=== PATIENT | male | born 1950 | race Caucasian/White ===

== ENCOUNTER 2016-12-04 12:47 | Emergency (ER) | payer OTHER ==
[2016-12-04 12:52] VITALS: TEMP 36.3
[2016-12-04] MEDS ORDERED: SODIUM CHLORIDE 0.9% 1000ML 1,000 ML IV STA ×2 (13:00→15:10)
[2016-12-04] MEDS ORDERED: HALOPERIDOL LACTATE 5 MG/ML 1 ML VIAL IM STA (13:28)
[2016-12-04] MEDS ORDERED: NMN10 PO (13:43)
[2016-12-04] MEDS ORDERED: TAMS0.4C38 PO (13:43)
[2016-12-04] MEDS ORDERED: AMLO-114 PO (13:43)
[2016-12-04] MEDS ORDERED: ACET325T30 PO (13:43)
[2016-12-04] MEDS ORDERED: ZNTT/150 PO (13:43)
[2016-12-04] MEDS ORDERED: B-CO1CAP3 PO (13:43)
[2016-12-04] MEDS ORDERED: ASPI81TA28 PO (13:43)
[2016-12-04] MEDS ORDERED: SERT-234 PO (13:43)
[2016-12-04] MEDS ORDERED: DONE10TA12 PO (13:43)
[2016-12-04] MEDS ORDERED: NUTR-7 PO (13:43)
--- NOTE | 2016-12-04 13:50 | EMERGENCY ROOM VISIT NOTE ---
History Report prepared by Olayinka: Katya Regan Under the Supervision of: Rosalind SantiagoO. First contact with patient: 12:50 Chief Complaint: ILLNESS History of Present Illness The patient is a 66 year old male who presents to the Emergency Room with complaints of a persistent illness that began prior to arrival. Per records, the patient has been refusing to eat and drink and was sent to the emergency department for work up. Records indicate that the patient has had a change in mental status. The guards do not report any known trauma. Records note a history of PTSD, unspecified depression, hepatitis C, GERD, hypertension, and a history of substance abuse. The history is limited secondary to altered mental status. Source of History: patient, other (records, long term guards) History Limited By: AMS Onset: prior to arrival Position: other (global) Quality: other (illness) Timing: other (persistent) Note: Associated Symptoms: refusing to eat or drink, change in mental status Review of Systems See HPI for pertinent positives & negatives. A total of 10 systems reviewed and were otherwise negative. Past Medical & Surgical Medical Problems: (1) GERD (gastroesophageal reflux disease) (2) Hepatitis C (3) Hypertension (4) PTSD (post-traumatic stress disorder) (5) Substance abuse Family History No pertinent family history stated Social History Occupation Status: other (prisoner) Current/Historical Medications Scheduled Amlodipine (Norvasc), 10 MG PO DAILY Aspirin (Aspirin Ec), 81 MG PO DAILY Donepezil Hydrochloride (Aricept), 1 TAB PO HS Memantine (Namenda), 10 MG PO BID Ranitidine (Zantac), 1 TAB PO BID Sertraline (Zoloft), 1 TAB PO DAILY Tamsulosin Hcl (Flomax), 1 CAP PO DAILY Miscellaneous Medications Acetaminophen (Acetaminophen) B-Complex Vitamins (B Complex) Nutritional Supplements (Boost) Physical Exam Vital Signs Date Time Temp Pulse Resp B/P Pulse Ox O2 Delivery O2 Flow Rate FiO2 12/04/16 16:59 85 16 132/76 100 12/04/16 16:10 100 20 147/112 100 Room Air 12/04/16 15:22 83 20 141/92 95 Room Air 12/04/16 14:04 83 18 125/77 96 Room Air 12/04/16 13:58 85 12/04/16 12:55 85 18 133/83 100 Room Air 12/04/16 12:52 36.3 20 139/93 Room Air Physical Exam GENERAL: Patient is awake, alert, somewhat anxious appearing and guarded. Talking nonsensically. Appears to be responding to internal stimuli. EYES: The conjunctivae are clear. The pupils are round and reactive. EARS, NOSE, MOUTH AND THROAT: The nose is without any evidence of any deformity. Mucous membranes are dry tongue is midline NECK: The neck is nontender and supple. RESPIRATORY: Normal respiratory effort is noted there is no evidence of wheezing rhonchi or rales CARDIOVASCULAR: Regular rate and rhythm noted there no murmurs rubs or gallops normal S1 normal S2 GASTROINTESTINAL: The abdomen is soft. Bowel sounds are present in all quadrants. Abdomen is nontender MUSCULOSKELETAL/EXTREMITIES: There is no evidence of gross deformity full range of motion is noted in the hips and shoulders SKIN: There is no obvious evidence of any rash. There are no petechiae, pallor or cyanosis noted. NEUROLOGIC: Patient will not answer questions. Cannot assess orientation at this time. Patellar reflexes are 2+ bilaterally. No clonus. Medical Decision & Procedures ER Provider Diagnostic Interpretation: X ray results and stated below per my interpretation and radiology interpretation. Other radiology results per my review and radiologist interpretation: CT SCAN OF THE BRAIN WITHOUT IV CONTRAST CLINICAL HISTORY: Change in mental status. COMPARISON STUDY: No priors. TECHNIQUE: Unenhanced axial CT scan of the brain is performed from the vertex to the skull base. The examination is modestly degraded by motion artifact. CT DOSE: 947.54 mGycm FINDINGS: Brain parenchyma: There are age-related involutional changes noting [id number] patchy subcortical and periventricular microangiopathic change. There is no hemorrhage, mass effect, or evidence of acute territorial ischemia by CT criteria. Patel-white matter is preserved. No extra-axial fluid collection is seen. Ventricles, sulci, cisterns: Prominent secondary to involutional change. Intracranial vasculature: There is atherosclerotic calcification of the cavernous carotid arteries. Calvarium: Unremarkable. Sinuses and mastoids: The visualized paranasal sinuses are clear. The mastoid air cells are well pneumatized. Orbits: The bony orbits are grossly intact. IMPRESSION: There is no hemorrhage, mass effect, or evidence of acute territorial ischemia by CT criteria noting a motion degraded examination. Electronically signed by: Ashish Diamond M.D. 12/04/2016 3:12 PM Dictated Date/Time: 12/04/2016 3:10 PM SINGLE VIEW CHEST CLINICAL HISTORY: Weakness. Change in mental status. FINDINGS: An AP, portable, upright chest radiograph is obtained. No prior studies are available for comparison at the time of dictation. The cardiomediastinal silhouette is unremarkable. There is mild atherosclerotic calcification of the thoracic aorta. The lungs and pleural spaces are clear. Apical scarring is observed. No pneumothorax is seen. The skeletal structures are osteopenic. The bony thorax is grossly intact. Surgical clips are seen in the right upper quadrant. IMPRESSION: No acute cardiopulmonary abnormality. Electronically signed by: Ashish Diamond M.D. 12/04/2016 2:07 PM Dictated Date/Time: 12/04/2016 2:06 PM Laboratory Results 12/04/16 14:15 Red Blood Count 4.83, Mean Corpuscular Volume 87.8, Mean Corpuscular Hemoglobin 31.1, Mean Corpuscular Hemoglobin Concent 35.4, Mean Platelet Volume 11.0, Neutrophils (%) (Auto) 83.3, Lymphocytes (%) (Auto) 11.8, Monocytes (%) (Auto) 4.6, Eosinophils (%) (Auto) 0.1, Basophils (%) (Auto) 0.0, Neutrophils # (Auto) 6.90, Lymphocytes # (Auto) 0.98, Monocytes # (Auto) 0.38, Eosinophils # (Auto) 0.01, Basophils # (Auto) 0.00 12/04/16 14:15 Test 12/04/16 14:15 White Blood Count 8.29 K/uL (4.8-10.8) Red Blood Count 4.83 M/uL (4.7-6.1) Hemoglobin 15.0 g/dL (14.0-18.0) Hematocrit 42.4 % (42-52) Mean Corpuscular Volume 87.8 fL (80-100) Mean Corpuscular Hemoglobin 31.1 pg (25-34) Mean Corpuscular Hemoglobin Concent 35.4 g/dl (32-36) Platelet Count 269 K/uL (130-400) Mean Platelet Volume 11.0 fL (7.4-10.4) Neutrophils (%) (Auto) 83.3 % Lymphocytes (%) (Auto) 11.8 % Monocytes (%) (Auto) 4.6 % Eosinophils (%) (Auto) 0.1 % Basophils (%) (Auto) 0.0 % Neutrophils # (Auto) 6.90 K/uL (1.4-6.5) Lymphocytes # (Auto) 0.98 K/uL (1.2-3.4) Monocytes # (Auto) 0.38 K/uL (0.11-0.59) Eosinophils # (Auto) 0.01 K/uL (0-0.5) Basophils # (Auto) 0.00 K/uL (0-0.2) RDW Standard Deviation 40.2 fL (36.4-46.3) RDW Coefficient of Variation 12.6 % (11.5-14.5) Immature Granulocyte % (Auto) 0.2 % Immature Granulocyte # (Auto) 0.02 K/uL (0.00-0.02) Prothrombin Time 11.4 SECONDS (9.0-12.0) Prothromb Time International Ratio 1.1 (0.9-1.1) Activated Partial Thromboplast Time 27.7 SECONDS (21.0-31.0) Partial Thromboplastin Ratio 1.1 Anion Gap 16.0 mmol/L (3-11) Estimated GFR () 59.8 Estimated GFR (Non- 51.6 BUN/Creatinine Ratio 25.8 (10-20) Calcium Level 9.3 mg/dl (8.5-10.1) Magnesium Level 2.4 mg/dl (1.8-2.4) Total Bilirubin 3.0 mg/dl (0.2-1) Direct Bilirubin 0.4 mg/dl (0-0.2) Aspartate Amino Transf (AST/SGOT) 40 U/L (15-37) Alanine Aminotransferase (ALT/SGPT) 31 U/L (12-78) Alkaline Phosphatase 102 U/L (45-117) Ammonia < 10.0 umol/L (11-32) Total Creatine Kinase 494 U/L (39-308) Creatine Kinase MB 3.0 ng/ml (0.5-3.6) Creatine Kinase MB Ratio 0.6 (0-3.0) Troponin I < 0.015 ng/ml (0-0.045) Total Protein 7.7 gm/dl (6.4-8.2) Albumin 4.2 gm/dl (3.4-5.0) Thyroid Stimulating Hormone (TSH) 1.140 uIu/ml (0.300-4.500) Laboratory results per my review. Medications Administered Medications (Trade) Dose Ordered Sig/Ana Route Start Time Stop Time Status Last Admin Dose Admin Sodium Chloride (Nss 1000ml) 1,000 ml @ 999 mls/hr Q1H1M STAT IV 12/04/16 13:00 12/04/16 14:00 DC 12/04/16 14:23 999 MLS/HR Haloperidol Lactate 10 mg 10 mg NOW STAT IM 12/04/16 13:28 12/04/16 13:29 DC 12/04/16 13:33 10 MG Sodium Chloride (Nss 1000ml) 1,000 ml @ 999 mls/hr Q1H1M STAT IV 12/04/16 15:10 12/04/16 16:10 DC 12/04/16 15:23 999 MLS/HR ECG Indication: altered mental status Rate (beats per minute): 81 Rhythm: normal sinus Findings: no ectopy, other (no ST segment abnormalities) Comparison ECG Date: no prior available ED Course 1253: The patient was evaluated in room A10. A complete history and physical examination were performed. 1300: Ordered Sodium Chloride 1000 ml @ 999 mls/hr IV. 1328: Ordered Haldol Inj 10 mg IM. 1510: Ordered Sodium Chloride 1000 ml @ 999 mls/hr IV. 1610: I discussed the patients case with Dr. Olmedo. He states that the patient can return to the long term for further treatment and management. 1615: I reevaluated the patient and he is resting comfortably. I discussed the exam findings with him and the guards. I discussed the treatment plan and he verbalized complete understanding and agreement. He is ready to go home shortly. Medical Decision Differential diagnosis: Etiologies such as metabolic, infection, hypoglycemia, electrolyte abnormalities , cardiac sources, intracerebral event, toxicologic, neurologic, as well as others were entertained. Nursing notes reviewed. The patient is a 66-year-old male who presented from the long term for an evaluation. The patient has significant mental health problems. He has not been compliant with his medications and he has been refusing to eat or drink. He was sent to the emergency apartment for fear of dehydration. The patient was treated with Haldol and IV fluids in the emergency department. On subsequent reevaluation he was much more calm. I discussed the patient's laboratory and radiographic studies with the long term physician. They've agreed to accept the patient back for further management and disposition. They were encouraged to give the patient all his medications as prescribed. They were also encouraged to help him with eating and drinking. Otherwise her encouraged to send patient back to the emergency department for further management and disposition if symptoms do not improve. Consults Time Called: 1600 Consulting Physician: Dr. Olmedo Returned Call: 1610 I discussed the patients case with Dr. Olmedo. He states that the patient can return to the long term for further treatment and management. Impression Primary Impression: Dehydration Additional Impression: Noncompliance with medications Scribe Attestation The scribe's documentation has been prepared under my direction and personally reviewed by me in its entirety. I confirm that the note above accurately reflects all work, treatment, procedures, and medical decision making performed by me. Departure Information Dispostion Home / Self-Care Forms HOME CARE DOCUMENTATION FORM, IMPORTANT VISIT INFORMATION, WORK / SCHOOL INSTRUCTIONS Patient Instructions Dehydration, My [facility] Additional Instructions Continue all medications as prescribed. Encourage the patient to continue to eat and drink as much as possible. Problem Qualifiers
--- NOTE | 2016-12-04 14:08 | DIAGNOSTIC IMAGING REPORT ---
SINGLE VIEW CHEST CLINICAL HISTORY: Weakness. Change in mental status. FINDINGS: An AP, portable, upright chest radiograph is obtained. No prior studies are available for comparison at the time of dictation. The cardiomediastinal silhouette is unremarkable. There is mild atherosclerotic calcification of the thoracic aorta. The lungs and pleural spaces are clear. Apical scarring is observed. No pneumothorax is seen. The skeletal structures are osteopenic. The bony thorax is grossly intact. Surgical clips are seen in the right upper quadrant. IMPRESSION: No acute cardiopulmonary abnormality. Electronically signed by: Ashish Diamond M.D. 12/04/2016 2:07 PM Dictated Date/Time: 12/04/2016 2:06 PM
[2016-12-04 14:28] LABS: COMPLETE YES; EOS % 0.1 %; HEMATOCRIT 42.4 % (42-52); IG% 0.2 %; LYMPH % 11.8 %; LYMPH ABS # 0.98 K/uL (1.2-3.4); MEAN CELL VOLUME 87.8 fL (80-100); MEAN CORPUSCULAR HEMOGLOBIN 31.1 pg (25-34); MEAN CORPUSCULAR HGB CONC 35.4 g/dl (32-36); MONO % 4.6 %; NEUT % 83.3 %; PLATELET COUNT 269 K/uL (130-400); RED BLOOD COUNT 4.83 M/uL (4.7-6.1); WHITE BLOOD COUNT 8.29 K/uL (4.8-10.8)
[2016-12-04 14:36] LABS: INR 1.1 (0.9-1.1); PARTIAL THROMBOPLASTIN RATIO 1.1; PROTHROMBIN TIME (PATIENT) 11.4 SECONDS (9.0-12.0)
[2016-12-04 14:45] LABS: ALT/SGPT 31 U/L (12-78); BLOOD UREA NITROGEN 36 mg/dl (7-18); BUN/CREATININE RATIO 25.8 (10-20); CALCIUM 9.3 mg/dl (8.5-10.1); CARBON DIOXIDE 19 mmol/L (21-32); CHLORIDE 108 mmol/L (98-107); GLUCOSE 98 mg/dl (70-99); MAGNESIUM 2.4 mg/dl (1.8-2.4); POTASSIUM 3.7 mmol/L (3.5-5.1); SODIUM 143 mmol/L (136-145)
[2016-12-04 14:56] LABS: ALKALINE PHOSPHATASE 102 U/L (45-117); AST/SGOT 40 U/L (15-37); CKMB/CK RATIO 0.6 (0-3.0)
--- NOTE | 2016-12-04 15:13 | DIAGNOSTIC IMAGING REPORT ---
CT SCAN OF THE BRAIN WITHOUT IV CONTRAST CLINICAL HISTORY: Change in mental status. COMPARISON STUDY: No priors. TECHNIQUE: Unenhanced axial CT scan of the brain is performed from the vertex to the skull base. The examination is modestly degraded by motion artifact. CT DOSE: 947.54 mGycm FINDINGS: Brain parenchyma: There are age-related involutional changes noting [id number] patchy subcortical and periventricular microangiopathic change. There is no hemorrhage, mass effect, or evidence of acute territorial ischemia by CT criteria. Patel-white matter is preserved. No extra-axial fluid collection is seen. Ventricles, sulci, cisterns: Prominent secondary to involutional change. Intracranial vasculature: There is atherosclerotic calcification of the cavernous carotid arteries. Calvarium: Unremarkable. Sinuses and mastoids: The visualized paranasal sinuses are clear. The mastoid air cells are well pneumatized. Orbits: The bony orbits are grossly intact. IMPRESSION: There is no hemorrhage, mass effect, or evidence of acute territorial ischemia by CT criteria noting a motion degraded examination. Electronically signed by: Ashish Diamond M.D. 12/04/2016 3:12 PM Dictated Date/Time: 12/04/2016 3:10 PM
[2016-12-04 16:59] VITALS: BP 132/76; PULSE 85; O2SAT 100
[2016-12-15] MEDS ORDERED: PRS5 PO (15:05)
[2016-12-15] MEDS ORDERED: KFL500 PO (15:05)
== END 2016-12-04 17:00 | disposition home or self-care (01) ==
LOC: C.EDA 12:48
DX: E86.0 Dehydration (principal); Z91.19 Patient's noncompliance with other medical treatment and regimen; F43.10 Post-traumatic stress disorder, unspecified; F32.9 Major depressive disorder, single episode, unspecified; I10 Essential (primary) hypertension; B19.20 Unspecified viral hepatitis C without hepatic coma; K21.9 Gastro-esophageal reflux disease without esophagitis; F19.10 Other psychoactive substance abuse, uncomplicated; Z79.82 Long term (current) use of aspirin; Z79.899 Other long term (current) drug therapy

== ENCOUNTER 2016-12-12 13:10 | Inpatient (IN) | payer OTHER ==
[~2016-12-12] VITALS: Ht 157.5 cm; Wt 64.9 kg
[~2016-12-12 13:10] MED LIST: ACET325T30 PO; AMLO-114 PO; ASPI81TA28 PO; B-CO1CAP3 PO; DONE10TA12 PO; NMN10 PO; NUTR-7 PO; SERT-234 PO; TAMS0.4C38 PO; ZNTT/150 PO
[2016-12-12] MEDS ORDERED: SODIUM CHLORIDE 0.9% 1000ML 1,000 ML IV STA (14:25)
[2016-12-12] MEDS ORDERED: SODIUM CHLORIDE 0.9% 1000ML 500 ML IV STA (14:25)
[2016-12-12] MEDS ORDERED: HALOPERIDOL LACTATE 5 MG/ML 1 ML VIAL IM STA (14:25)
--- NOTE | 2016-12-12 14:30 | EMERGENCY ROOM VISIT NOTE ---
History Report prepared by Olayinka: Nas Hernández Under the Supervision of: Dr. Ashish Heath M.D. First contact with patient: 14:14 Chief Complaint: GI ASSESSMENT Stated Complaint: ABDOMINAL PAIN Nursing Triage Summary: Pt brought to ER via BLS from [facility]. EMS reports pt has questionable bowel obstruction. Distended abdomen with increased bowel sounds. Pt has baseline altered mental status only oriented to person. Pt also reported to have hx of Hep C, PTSD, and HTN. History of Present Illness The patient is a 66 year old male who presents to the Emergency Room via BLS from [facility] with complaints of constant abdominal pain beginning several hours prior to arrival. The nursing notes associate a distended abdomen with today's symptoms. It is noted the patient has end stage Alzheimer's as well as a psychiatric history. The history is limited secondary to the patient's mental state. 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 Review of Systems The HPI and ROS are limited secondary to the patient's mental state. Past Medical & Surgical Medical Problems: (1) GERD (gastroesophageal reflux disease) (2) Hepatitis C (3) Hypernatremia (4) Hypertension (5) PTSD (post-traumatic stress disorder) (6) Substance abuse Family History Patient reports no known family medical history. Social History Smoking Status: Former Smoker Housing Status: other ([facility]) Occupation Status: other Current/Historical Medications Scheduled Acetaminophen (Acetaminophen), 650 MG PO BID Amlodipine (Norvasc), 10 MG PO HS Aspirin (Aspirin Ec), 81 MG PO DAILY B-Complex Vitamins (B Complex), 1 TAB PO DAILY Donepezil Hydrochloride (Aricept), 1 TAB PO HS Memantine (Namenda), 10 MG PO BID Nutritional Supplements (Boost), 1 CAN PO TID Ranitidine (Zantac), 1 TAB PO BID Sertraline (Zoloft), 1 TAB PO DAILY Sulfamethoxazole-Trimethoprim (Bactrim Ds 800MG/160MG), 1 TAB PO BID Tamsulosin Hcl (Flomax), 1 CAP PO DAILY [Haloperidol 5MG/Ml], 1 MG IM TID Allergies Coded Allergies: No Known Allergies (Unverified , 12/12/16) Physical Exam Vital Signs Date Time Temp Pulse Resp B/P Pulse Ox O2 Delivery O2 Flow Rate FiO2 12/12/16 17:25 105 26 135/81 95 Room Air 12/12/16 15:28 108 24 130/55 95 Room Air 12/12/16 14:14 105 18 123/99 93 Room Air 12/12/16 13:43 98 12/12/16 13:22 36.8 99 18 145/67 97 Room Air Physical Exam GENERAL: Patient is in no acute distress. HEENT: No acute trauma, normocephalic atraumatic, mucous membranes markedly dry , no nasal congestion, no scleral icterus. PERRL. NECK: No stridor, no adenopathy, no meningismus, trachea is midline. LUNGS: Clear to auscultation bilaterally, no wheeze, no rhonchi, breath sounds equal. HEART: Tachycardic with a regular rhythm. No murmurs. ABDOMEN: Suspect markedly distended bladder to the umbilicus. This area of distention is tender. The upper abdomen is nontender and soft. No obvious hernia. EXTREMITIES: No cyanosis or edema, full range of motion of all the joints without pain or difficulty, no signs for acute trauma. NEUROLOGIC: Answers simple questions. Moving all extremities. Appears agitated. No focal motor deficits. SKIN: No rash, no jaundice, no diaphoresis. Medical Decision & Procedures ER Provider Diagnostic Interpretation: X ray results and stated below per my interpretation and radiologist interpretation. Other radiology results and stated below per my review and radiologist interpretation: CHEST ONE VIEW PORTABLE CLINICAL HISTORY: ABDOMINAL PAIN/GI pain COMPARISON STUDY: 12/04/2016 FINDINGS: The bones soft tissues and hemidiaphragms are normal. The cardiomediastinal silhouette is normal. The lungs are clear. The pulmonary vasculature is normal. Chronic tortuosity thoracic aorta. IMPRESSION: Chronic change. No acute process. Electronically signed by: Jori Sequeira M.D. 12/12/2016 2:57 PM ABDOMEN AND PELVIS CT WITHOUT CONTRAST CT DOSE: 1209.40 mGy.cm HISTORY: Flank pain ABD PAIN, POSSIBLE OBSTRUCTION, NO CONTRAST TECHNIQUE: Multiaxial CT images of the abdomen and pelvis were performed without contrast. COMPARISON STUDY: None. FINDINGS: Lung bases are clear. Liver spleen and pancreas are grossly unremarkable. Prior cholecystectomy. Mild bilateral hydronephrosis and hydroureter. The appendix is air-filled. Anterior to the cecum is an inflammatory/masslike process measuring 4.5 x 3.5 cm. This appears to be containing a component of a decompressed bladder laterally with a possible with possible inclusion of a short segment of the right ureter. The appendix is again normal. This process appears to be relatively self-contained and contains a component of fat. Kirkland catheter is in position. Prostate is midline. There is no free fluid within the pelvic cul-de-sac. Bowel pattern itself appears to be nonobstructive. IMPRESSION: 1. Inflammatory slightly serpiginous masslike process measuring 4.5 x 3.5 cm inferior to the cecum and medial to a normal appendix. 2. This potentially represents an internal hernia containing and inflamed/pre-existing bladder diverticulum. 3. Possibility of an internal incarceration of components of the bladder are considered, with the possibility of bowel containment considered unlikely. 4. Mild bilateral hydroureteronephrosis possibly on the basis of pre-existing bladder outlet obstructive process. Electronically signed by: Jori Sequeira M.D. 12/12/2016 4:01 PM Laboratory Results 12/12/16 16:00 Red Blood Count 3.70, Mean Corpuscular Volume 93.0, Mean Corpuscular Hemoglobin 31.4, Mean Corpuscular Hemoglobin Concent 33.7, Mean Platelet Volume 11.0, Neutrophils (%) (Auto) 79.9, Lymphocytes (%) (Auto) 8.7, Monocytes (%) (Auto) 9.8, Eosinophils (%) (Auto) 0.8, Basophils (%) (Auto) 0.2, Neutrophils # (Auto) 8.93, Lymphocytes # (Auto) 0.97, Monocytes # (Auto) 1.10, Eosinophils # (Auto) 0.09, Basophils # (Auto) 0.02 12/12/16 16:00 Test 12/12/16 15:15 12/12/16 16:00 Urine Color DK YELLOW Urine Appearance CLOUDY (CLEAR) Urine pH 5.0 (4.5-7.5) Urine Specific [place] 1.016 (1.000-1.030) Urine Protein 2+ (NEG) Urine Glucose (UA) NEG (NEG) Urine Ketones NEG (NEG) Urine Occult Blood 3+ (NEG) Urine Nitrite NEG (NEG) Urine Bilirubin NEG (NEG) Urine Urobilinogen NEG (NEG) Urine Leukocyte Esterase SMALL (NEG) Urine WBC (Auto) 5-10 /hpf (0-5) Urine RBC (Auto) >30 /hpf (0-4) Urine Hyaline Casts (Auto) 1-5 /lpf (0-5) Urine Epithelial Cells (Auto) 0-5 /lpf (0-5) Urine Bacteria (Auto) NEG (NEG) White Blood Count 11.18 K/uL (4.8-10.8) Red Blood Count 3.70 M/uL (4.7-6.1) Hemoglobin 11.6 g/dL (14.0-18.0) Hematocrit 34.4 % (42-52) Mean Corpuscular Volume 93.0 fL (80-100) Mean Corpuscular Hemoglobin 31.4 pg (25-34) Mean Corpuscular Hemoglobin Concent 33.7 g/dl (32-36) Platelet Count 202 K/uL (130-400) Mean Platelet Volume 11.0 fL (7.4-10.4) Neutrophils (%) (Auto) 79.9 % Lymphocytes (%) (Auto) 8.7 % Monocytes (%) (Auto) 9.8 % Eosinophils (%) (Auto) 0.8 % Basophils (%) (Auto) 0.2 % Neutrophils # (Auto) 8.93 K/uL (1.4-6.5) Lymphocytes # (Auto) 0.97 K/uL (1.2-3.4) Monocytes # (Auto) 1.10 K/uL (0.11-0.59) Eosinophils # (Auto) 0.09 K/uL (0-0.5) Basophils # (Auto) 0.02 K/uL (0-0.2) RDW Standard Deviation 46.4 fL (36.4-46.3) RDW Coefficient of Variation 13.6 % (11.5-14.5) Immature Granulocyte % (Auto) 0.6 % Immature Granulocyte # (Auto) 0.07 K/uL (0.00-0.02) Prothrombin Time 10.7 SECONDS (9.0-12.0) Prothromb Time International Ratio 1.0 (0.9-1.1) Activated Partial Thromboplast Time 28.2 SECONDS (21.0-31.0) Partial Thromboplastin Ratio 1.1 Anion Gap 11.0 mmol/L (3-11) Est Creatinine Clear Calc Drug Dose 12.3 ml/min Estimated GFR () 14.6 Estimated GFR (Non- 12.6 BUN/Creatinine Ratio 17.6 (10-20) Lactic Acid Level 0.8 mmol/L (0.4-2.0) Calcium Level 8.8 mg/dl (8.5-10.1) Total Bilirubin 0.4 mg/dl (0.2-1) Aspartate Amino Transf (AST/SGOT) 26 U/L (15-37) Alanine Aminotransferase (ALT/SGPT) 26 U/L (12-78) Alkaline Phosphatase 71 U/L (45-117) Total Creatine Kinase 241 U/L (39-308) Troponin I < 0.015 ng/ml (0-0.045) Total Protein 6.8 gm/dl (6.4-8.2) Albumin 3.0 gm/dl (3.4-5.0) Globulin 3.8 gm/dl (2.5-4.0) Albumin/Globulin Ratio 0.8 (0.9-2) Lipase 569 U/L (73-393) Laboratory results reviewed by me. Medications Administered Medications (Trade) Dose Ordered Sig/Ana Route Start Time Stop Time Status Last Admin Dose Admin Haloperidol Lactate 10 mg 10 mg NOW STAT IM 12/12/16 14:25 12/12/16 14:29 DC 12/12/16 14:33 10 MG Sodium Chloride 500 ml @ 999 mls/hr Q31M STAT IV 12/12/16 14:25 12/12/16 14:55 DC 12/12/16 16:12 999 MLS/HR Sodium Chloride (Nss 1000ml) 1,000 ml @ 200 mls/hr Q5H STAT IV 12/12/16 14:25 12/12/16 19:24 12/12/16 16:12 200 MLS/HR Piperacillin Sod/ Tazobactam Sod (Zosyn Iv) 4.5 gm NOW STAT IV 12/12/16 16:19 12/12/16 16:20 DC 12/12/16 16:30 4.5 GM ECG Indication: abdominal pain Rate (beats per minute): 107 Rhythm: sinus tachycardia Findings: no acute ischemic change, no ectopy ED Course 1423: The patient was evaluated in room B2. A complete history and physical exam was performed. 1425: Ordered Sodium Chloride 1,000 ml @ 200 mls/hr IV, Sodium Chloride 500 ml @ 999 mls/hr IV, Haldol Inj 10 mg IM. It is noted 3 L of urine was drained. 1557: I spoke to PAULETTE Mckee (Radiology) about the patients CT. 1610: I spoke to LUKASZ Shah (Urology) about the patients case. 1615: I spoke to Dr. Jonnathan CALDWELL (Urology) about the patients case, and he will see the patient. 1619: Ordered Zosyn Iv 4.5 gm IV. 1630: I spoke to PAULETTE Spain (Hospitalist) about the patients case, and he will follow the patient for further evaluation. 1638: Reevaluated the patient at this time and updated the guards about the patient's admission. Medical Decision The differential diagnoses include but are not limited to: urinary retention, UTI, bowel obstruction, diverticulitis, bowel perforation, dehydration, electrolyte imbalance. There is a mild leukocytosis which could be consistent with infection or just his pain. No concerning anemia. Renal panel testing shows hypernatremia and acute renal failure. There was no hepatitis. Lipase slightly elevated but not high enough to diagnose pancreatitis. There was no coagulopathy. Urinalysis shows hematuria, no infection. Lactic acid level is not elevated making severe sepsis less likely. Chest film shows no pneumonia or CHF. Abdominal and pelvis CT does not show any urinary obstruction. The bladder is now decompressed with a Kirkland catheter in place. There was an inflammatory type lesion in the right pelvis next to the cecum of unknown significance. A urology consult was recommended. EKG shows a sinus rhythm, no acute ischemia. Cardiac enzyme testing 1 is not consistent with acute cardiac injury. The patient presents with the possibility of an acute abdomen. On exam, he had marked bladder distention. He was aggressively managed. Because of his agitation and uncooperative state, required IM Haldol. He has received this in the past. He did well with this medication. A Kirkland cath was placed and a very large amount of urine, over 3 L, drained. The urine was tea colored towards the end. The patient did receive IV saline, he received IV Zosyn for antibiotic coverage. The patient has been aggressively manage and cared for. He is improved compared to when he first arrived. I did speak with urology, I talked with the on-call hospitalist. I discussed things with case management. Admission/ observation is warranted. It appears his issue today was urinary obstruction- this has led to renal failure. Urology is investigating the lesion noted on CT scan. Consults Time Called: 1556 Consulting Physician: PAULETTE Mckee (Radiology) Returned Call: 1557 I spoke to PAULETTE Mckee (Radiology) about the patients CT. Additional Consults: Time Called: 1609, 1614 Consulted Physician: LUKASZ Shah (Urology), Dr. Jonnathan CALDWELL ( Urology) Returned Call: 1610, 1615 Additional Comments: 1610: I spoke to LUKASZ Shah (Urology) about the patients case. 1615: I spoke to Dr. Jonnathan CALDWELL (Urology) about the patients case, and he will see the patient. Time Called: 1629 Consulted Physician: PAULETTE Spain (Hospitalist) Returned Call: 1630 Additional Comments: I spoke to PAULETTE Spain (Hospitalist) about the patients case, and he will follow the patient for further evaluation. Impression Primary Impression: Acute renal failure Additional Impressions: Dehydration Urinary retention Scribe Attestation The scribe's documentation has been prepared under my direction and personally reviewed by me in its entirety. I confirm that the note above accurately reflects all work, treatment, procedures, and medical decision making performed by me. Departure Information Dispostion Being Evaluated By Hospitalist (PAULETTE Spain (Hospitalist)) Referrals Chuck WRIGHT (PCP) Problem Qualifiers
--- NOTE | 2016-12-12 14:58 | DIAGNOSTIC IMAGING REPORT ---
CHEST ONE VIEW PORTABLE CLINICAL HISTORY: ABDOMINAL PAIN/GI pain COMPARISON STUDY: 12/04/2016 FINDINGS: The bones soft tissues and hemidiaphragms are normal. The cardiomediastinal silhouette is normal. The lungs are clear. The pulmonary vasculature is normal. Chronic tortuosity thoracic aorta. IMPRESSION: Chronic change. No acute process. Electronically signed by: Jori Sequeira M.D. 12/12/2016 2:57 PM Dictated Date/Time: 12/12/2016 2:54 PM
[2016-12-12] MEDS ORDERED: HALDOL (15:02)
[2016-12-12] MEDS ORDERED: SULF800T23 PO (15:02)
[2016-12-12] MEDS ORDERED: HALOPERIDOL 5 MG/ML IM (15:04)
[2016-12-12 15:37] LABS: URINE APPEARANCE CLOUDY (CLEAR); URINE BILIRUBIN NEG (NEG); URINE COLOR DK YELLOW; URINE EPITHELIAL CELL AUTO 0-5 /lpf (0-5); URINE NITRITE NEG (NEG); URINE SPECIFIC GRAVITY 1.016 (1.000-1.030); UROBILINOGEN NEG (NEG); ZZURINE CULT IF INDIC CATH NO
[2016-12-12 15:50] LABS: MANUAL MICROSCOPIC REQUIRED? NO; REVIEW REQ? NO
--- NOTE | 2016-12-12 16:03 | DIAGNOSTIC IMAGING REPORT ---
ABDOMEN AND PELVIS CT WITHOUT CONTRAST CT DOSE: 1209.40 mGy.cm HISTORY: Flank pain ABD PAIN, POSSIBLE OBSTRUCTION, NO CONTRAST TECHNIQUE: Multiaxial CT images of the abdomen and pelvis were performed without contrast. COMPARISON STUDY: None. FINDINGS: Lung bases are clear. Liver spleen and pancreas are grossly unremarkable. Prior cholecystectomy. Mild bilateral hydronephrosis and hydroureter. The appendix is air-filled. Anterior to the cecum is an inflammatory/masslike process measuring 4.5 x 3.5 cm. This appears to be containing a component of a decompressed bladder laterally with a possible with possible inclusion of a short segment of the right ureter. The appendix is again normal. This process appears to be relatively self-contained and contains a component of fat. Kirkland catheter is in position. Prostate is midline. There is no free fluid within the pelvic cul-de-sac. Bowel pattern itself appears to be nonobstructive. IMPRESSION: 1. Inflammatory slightly serpiginous masslike process measuring 4.5 x 3.5 cm inferior to the cecum and medial to a normal appendix. 2. This potentially represents an internal hernia containing and inflamed/pre-existing bladder diverticulum. 3. Possibility of an internal incarceration of components of the bladder are considered, with the possibility of bowel containment considered unlikely. 4. Mild bilateral hydroureteronephrosis possibly on the basis of pre-existing bladder outlet obstructive process. Electronically signed by: Jori Sequeira M.D. 12/12/2016 4:01 PM Dictated Date/Time: 12/12/2016 3:41 PM
[2016-12-12 16:13] LABS: BASO % 0.2 %; BASO ABS # 0.02 K/uL (0-0.2); COMPLETE YES; EOS % 0.8 %; HEMATOCRIT 34.4 % (42-52); IG% 0.6 %; LYMPH % 8.7 %; LYMPH ABS # 0.97 K/uL (1.2-3.4); MEAN CORPUSCULAR HEMOGLOBIN 31.4 pg (25-34); MEAN CORPUSCULAR HGB CONC 33.7 g/dl (32-36); MONO % 9.8 %; NEUT % 79.9 %; PLATELET COUNT 202 K/uL (130-400); WHITE BLOOD COUNT 11.18 K/uL (4.8-10.8)
[2016-12-12] MEDS ORDERED: PIPERACILLIN/TAZOBACTAM 4.5 GM/100ML D5W IV STA (16:19)
[2016-12-12 16:33] LABS: ALB/GLOB RATIO 0.8 (0.9-2); ALT/SGPT 26 U/L (12-78); AST/SGOT 26 U/L (15-37); BLOOD UREA NITROGEN 79 mg/dl (7-18); BUN/CREATININE RATIO 17.6 (10-20); CALCIUM 8.8 mg/dl (8.5-10.1); CARBON DIOXIDE 24 mmol/L (21-32); CHLORIDE 115 mmol/L (98-107); GLUCOSE 105 mg/dl (70-99); POTASSIUM 4.4 mmol/L (3.5-5.1); SODIUM 150 mmol/L (136-145)
[2016-12-12 16:39] LABS: ALKALINE PHOSPHATASE 71 U/L (45-117)
[2016-12-12 16:52] LABS: PARTIAL THROMBOPLASTIN RATIO 1.1; PROTHROMBIN TIME (PATIENT) 10.7 SECONDS (9.0-12.0)
--- NOTE | 2016-12-12 17:04 | Urology Consultation ---
History General Date of Service: Dec 12, 2016. Chief Complaint: urinary retention Primary Care Physician: Chuck WRIGHT History of Present Illness 66 yo male with dementia sent to [facility] ED from [facility] snf for abdominal pain. Found to be in urinary retention, and mckenna catheter placed for 3L or galaviz colored urine return. Pt also noted to be in renal failure with a Cr of 4.5 on admission. Baseline Cr unknown. The pt is demented, and cannot provide an accurate hx. Per snf guards, the pt has become progressively worse over the past 3 weeks with new onset tremors/ shaking. CT scan findings on admission ? for herniated/incarcerated bladder. consulted to assist with this. Imaging Imaging: CT Laboratory Last 24 Hours Test 12/12/16 15:15 12/12/16 16:00 Urine Color DK YELLOW Urine Appearance CLOUDY Urine pH 5.0 Urine Specific [place] 1.016 Urine Protein 2+ Urine Glucose (UA) NEG Urine Ketones NEG Urine Occult Blood 3+ Urine Nitrite NEG Urine Bilirubin NEG Urine Urobilinogen NEG Urine Leukocyte Esterase SMALL Urine WBC (Auto) 5-10 /hpf Urine RBC (Auto) >30 /hpf Urine Hyaline Casts (Auto) 1-5 /lpf Urine Epithelial Cells (Auto) 0-5 /lpf Urine Bacteria (Auto) NEG White Blood Count 11.18 K/uL Red Blood Count 3.70 M/uL Hemoglobin 11.6 g/dL Hematocrit 34.4 % Mean Corpuscular Volume 93.0 fL Mean Corpuscular Hemoglobin 31.4 pg Mean Corpuscular Hemoglobin Concent 33.7 g/dl Platelet Count 202 K/uL Mean Platelet Volume 11.0 fL Neutrophils (%) (Auto) 79.9 % Lymphocytes (%) (Auto) 8.7 % Monocytes (%) (Auto) 9.8 % Eosinophils (%) (Auto) 0.8 % Basophils (%) (Auto) 0.2 % Neutrophils # (Auto) 8.93 K/uL Lymphocytes # (Auto) 0.97 K/uL Monocytes # (Auto) 1.10 K/uL Eosinophils # (Auto) 0.09 K/uL Basophils # (Auto) 0.02 K/uL RDW Standard Deviation 46.4 fL RDW Coefficient of Variation 13.6 % Immature Granulocyte % (Auto) 0.6 % Immature Granulocyte # (Auto) 0.07 K/uL Prothrombin Time 10.7 SECONDS Prothromb Time International Ratio 1.0 Activated Partial Thromboplast Time 28.2 SECONDS Partial Thromboplastin Ratio 1.1 Sodium Level 150 mmol/L Potassium Level 4.4 mmol/L Chloride Level 115 mmol/L Carbon Dioxide Level 24 mmol/L Anion Gap 11.0 mmol/L Blood Urea Nitrogen 79 mg/dl Creatinine 4.50 mg/dl Est Creatinine Clear Calc Drug Dose 12.3 ml/min Estimated GFR () 14.6 Estimated GFR (Non- 12.6 BUN/Creatinine Ratio 17.6 Random Glucose 105 mg/dl Lactic Acid Level 0.8 mmol/L Calcium Level 8.8 mg/dl Total Bilirubin 0.4 mg/dl Aspartate Amino Transf (AST/SGOT) 26 U/L Alanine Aminotransferase (ALT/SGPT) 26 U/L Alkaline Phosphatase 71 U/L Total Creatine Kinase 241 U/L Troponin I < 0.015 ng/ml Total Protein 6.8 gm/dl Albumin 3.0 gm/dl Globulin 3.8 gm/dl Albumin/Globulin Ratio 0.8 Lipase 569 U/L Problem List Medical Problems: (1) Dehydration Status: Acute (2) Noncompliance with medications Status: Acute Past History dementia, GERD, hepatitis (C), hypertension, other (PTSD; hx of substance abuse) Past Surgical History: other (unknown, pt unable to give accurate medical hx d/ t dementia) Family History Pt unable to give accurate family medical hx d/t dementia Social History Smoking: other (former smoker) Alcohol: never Housing status: other ([facility]) Occupation status: other Allergies Coded Allergies: No Known Allergies (Unverified , 12/12/16) Medications Home Medications: Home Meds and Scripts Medications Dose Route/Sig Max Daily Dose Days Date Category Dose Instructions [Haloperidol 5MG/Ml] 1 Mg IM TID 12/12/16 Reported INJECT 1MG IM THREE TIMES DAILY NEEDED AGGITATION Bactrim Ds 800MG/160MG (Sulfamethoxazole-Trimethoprim) 1 Tab Tab 1 Tab PO BID 12/12/16 Reported Acetaminophen 325 Mg Tab 650 Mg PO BID 12/04/16 Reported Boost (Nutritional Supplements) 1 Liq Liq 1 Can PO TID 12/04/16 Reported Flomax (Tamsulosin Hcl) 0.4 Mg Cap 1 Cap PO DAILY 30 12/04/16 Reported Zoloft (Sertraline HCl) 100 Mg Tab 1 Tab PO DAILY 90 12/04/16 Reported Zantac (Ranitidine HCl) 150 Mg Tab 1 Tab PO BID 30 12/04/16 Reported Namenda (Memantine) 10 Mg Tab 10 Mg PO BID 12/04/16 Reported Aricept (Donepezil Hydrochloride) 10 Mg Tab 1 Tab PO HS 30 12/04/16 Reported B Complex (B-Complex Vitamins) 1 Cap Cap 1 Tab PO DAILY 12/04/16 Reported Aspirin Ec (Aspirin) 81 Mg Tab 81 Mg PO DAILY 12/04/16 Reported Norvasc (Amlodipine Besylate) 10 Mg Tab 10 Mg PO HS 12/04/16 Reported Inpatient Medications: Current Inpatient Medications Medications (Trade) Dose Ordered Sig/Ana Route Start Time Stop Time Status Last Admin Dose Admin Sodium Chloride (Nss 1000ml) 1,000 ml @ 200 mls/hr Q5H STAT IV 12/12/16 14:25 12/12/16 19:24 12/12/16 16:12 200 MLS/HR Review of Systems Review of Systems Additional Comments: Pt unable to appropriately answer questions at this time. Physical Exam Vital Signs: Vital Signs Past 12 Hours Date Time Temp Pulse Resp B/P Pulse Ox O2 Delivery O2 Flow Rate FiO2 12/12/16 15:28 108 24 130/55 95 Room Air 12/12/16 14:14 105 18 123/99 93 Room Air 12/12/16 13:43 98 12/12/16 13:22 36.8 99 18 145/67 97 Room Air Physical Exam: General Appearance: + mild distress Eyes: bilateral eyes normal inspection ENT: hearing grossly normal Neck: no JVD Respiratory/Chest: no respiratory distress, no accessory muscle use Cardiovascular: no JVD Gastrointestinal: Abdomen: pertinent finding (soft abdomen without guarding or pain on palpation ) Extremities: normal inspection Neurologic/Psychiatric: alert, + aphasia, + disoriented Skin: normal color Assessment & Plan Assessment & Plan A/P: Urinary retention, gross hematuria AFVSS. Continue mckenna catheter for at least 10 days. Would also recommend starting Flomax. Will get a UC&S and urine cytology for hematuria. CT reviewed with Dr. Mejia this afternoon. Not consistent with incarcerated or herniated bladder at this time. Will order a cystogram for further evaluation. No acute abdominal findings on exam today. Thanks for the consult. Will continue to follow along with primary service. The pt was seen and assessed with Dr. Mejia this afternoon. I reevaluated pt this evening and urine is slightly pink. Hct is 34. Cystogram when full does not appear distorted although radiology has not read . Pt abdomen is soft.. Pt with severe dementia . Concerned he will have a neurogenic bladder requiring regional intermodal truck driver catheter or cic . Will order psa and start proscar in event pt has voiding trial down the road . Elevated creatinine likely from [facility]. Shawn De Santiago
[2016-12-12] MEDS ORDERED: VANCOMYCIN INJ 1,000 MG in SODIUM CHLORIDE 0.9% 250ML 250 ML IV STA (17:39)
[2016-12-12] MEDS ORDERED: ALUMINUM/MAGNESIUM/SIMETH (MAALOX MAX) 30 ML UDC PO PRN (17:45)
[2016-12-12] MEDS ORDERED: ZOLPIDEM TARTRATE 5 MG TAB PO PRN ×2 (17:45)
[2016-12-12] MEDS ORDERED: PROMETHAZINE HCL INJ 12.5 MG in SODIUM CHLORIDE 0.9% 50ML 50 ML IV PRN (17:45)
[2016-12-12] MEDS ORDERED: DiphenhydrAMINE HCL 50 MG/ML VIAL IV PRN (17:45)
[2016-12-12] MEDS ORDERED: MoRPHine SULFATE 2 MG/ML CARP IV PRN (17:45)
[2016-12-12] MEDS ORDERED: LORAZEPAM 2 MG/ML 1 ML VIAL IV PRN (17:45)
[2016-12-12] MEDS ORDERED: MAGNESIUM HYDROXIDE SUSP 30 ML UDC PO PRN (17:45)
[2016-12-12] MEDS ORDERED: HALOPERIDOL LACTATE 5 MG/ML 1 ML VIAL IM PRN (17:45)
[2016-12-12] MEDS ORDERED: MoRPHine SULFATE 4 MG/ML 1 ML CARP\\VIAL IV PRN (17:45)
[2016-12-12] MEDS ORDERED: ACETAMINOPHEN 325 MG TAB PO PRN ×2 (17:45)
[2016-12-12] MEDS ORDERED: ONDANSETRON INJ 2 MG/ML 2 ML VIAL IV PRN (17:45)
[2016-12-12] MEDS ORDERED: BISACODYL 10 MG SUPP PR PRN (17:45)
[2016-12-12] MEDS ORDERED: PIPERACILL/TAZOBAC CONSULT ACTIVE PRN (19:00)
[2016-12-12] MEDS ORDERED: VANCOMYCIN CONSULT ACTIVE PRN (19:00)
--- NOTE | 2016-12-12 19:03 | DIAGNOSTIC IMAGING REPORT ---
CYSTOGRAM CLINICAL HISTORY: Questionable bladder hernia, retention. COMPARISON STUDY: CT of the abdomen and pelvis performed earlier today. FLUOROSCOPY TIME: 1.9 minutes. TECHNIQUE: A director internal audit fluoroscopic image of the pelvis was performed. A cystogram was then performed following instillation of 1000 cc of dilute Gastrografin through the patient's indwelling Kirkland catheter. AP and oblique images were obtained. FINDINGS: Screen captures were utilized for this exam. 10 fluoroscopic images were obtained. A director internal audit fluoroscopic image was obtained. No contrast extravasation is identified. There was mild irregularity with subtle outpouching of the right superior bladder wall. Post void image was suboptimal. IMPRESSION: 1. No contrast extravasation to suggest bladder rupture. 2. Mild irregularity with outpouching of the right superior aspect of the bladder wall, a nonspecific finding. Electronically signed by: Hi Lawson M.D. 12/12/2016 7:01 PM Dictated Date/Time: 12/12/2016 6:56 PM
[2016-12-12 19:20] VITALS: BP 131/87; TEMP 36.4; Ht 157.5 cm; Wt 64.9 kg
[2016-12-12 19:42] VITALS: BP 131/87; PULSE 101; TEMP 36.4; O2SAT 97
[2016-12-12] MEDS ORDERED: VANCOMYCIN INJ 1,300 MG in SODIUM CHLORIDE 0.9% 250ML 250 ML IV ONE (20:00)
[2016-12-12] MEDS: SODIUM CHLORIDE 0.45% 1000ML 1,000 ML IV SCH (20:01)
--- NOTE | 2016-12-12 20:07 | Pharmacy Progress Note ---
Pharmacy Antibiotic Consult Date of Service: Dec 12, 2016. Pharmacy Dosing Scope Pharmacy is consulted to initiate vancomycin and zosyn IV dosing therapy, order appropriate labs and adjust drug dose/frequency. Subjective The patient is a 66 year old male admitted on Dec 12, 2016 at 17:38. Objective Height (Feet): 5 Height (Inches): 2.00 Weight (Kilograms): 64.900 Lab Results (24hrs): Laboratory Tests Test 12/12/16 16:00 BUN/Creatinine Ratio 17.6 Blood Urea Nitrogen 79 mg/dl Creatinine 4.50 mg/dl White Blood Count 11.18 K/uL Red Blood Count 3.70 M/uL Hemoglobin 11.6 g/dL Hematocrit 34.4 % Mean Corpuscular Volume 93.0 fL Mean Corpuscular Hemoglobin 31.4 pg Mean Corpuscular Hemoglobin Concent 33.7 g/dl Platelet Count 202 K/uL Mean Platelet Volume 11.0 fL Neutrophils (%) (Auto) 79.9 % Lymphocytes (%) (Auto) 8.7 % Monocytes (%) (Auto) 9.8 % Eosinophils (%) (Auto) 0.8 % Basophils (%) (Auto) 0.2 % Neutrophils # (Auto) 8.93 K/uL Lymphocytes # (Auto) 0.97 K/uL Monocytes # (Auto) 1.10 K/uL Eosinophils # (Auto) 0.09 K/uL Basophils # (Auto) 0.02 K/uL Assessment & Plan Patient started on vancomycin and zosyn for possible UTI infection. Vancomycin: * LD of 1300 mg iv (~20 mg/kg) x 1 ordered * Will dose by levels until renal function is stable; baseline Scr is unknown * Estimated kinetics: t1/2>24 hrs - will remain therapeutic until am (goal trough 15-20 mcg/ml) * Will order a random level in the am to assist with further dosing Zosyn: * 3.375 gm iv q 12 ordered; which is appropriate for CrCl <20 ml/min (CrCl ~12 ml/min) Pharmacy will continue to follow and will adjust dose/frequency as necessary. Thank you
[2016-12-12 23:46] VITALS: BP 173/81; PULSE 110; TEMP 36.5; O2SAT 93
[2016-12-13] MEDS ORDERED: PIPERACILL/TAZOBAC IV 3.375 GM in DEXTROSE 5% 100ML 100 ML IV SCH ×2 (02:00→09:45)
--- NOTE | 2016-12-13 03:35 | History and Physical ---
History & Physical Date & Time of Service: Dec 13, 2016 at 03:25 Chief Complaint: Acute Renal Failure; Hypernatremia Primary Care Physician: Chuck WRIGHT History of Present Illness Source: clinic records, hospital records The patient is a 66-year-old male from [place] who is brought to the emergency room via BLS report of constant abdominal pain that began several hours prior to arrival. The patient has end-stage Alzheimer's, and is unable to contribute to his history of present illness due to his chronically altered mental state Past Medical/Surgical History Medical Problems: (1) GERD (gastroesophageal reflux disease) Status: Chronic (2) Hepatitis C Status: Chronic (3) Hypertension Status: Chronic (4) PTSD (post-traumatic stress disorder) Status: Chronic (5) Substance abuse Status: Resolved Family History Patient reports no known family medical history. Social History Smoking Status: Unknown if Ever Smoked Housing status: [facility] Occupational Status: other Allergies Coded Allergies: No Known Allergies (Unverified , 12/12/16) Home Medications Scheduled Acetaminophen (Acetaminophen), 650 MG PO BID Amlodipine (Norvasc), 10 MG PO HS Aspirin (Aspirin Ec), 81 MG PO DAILY B-Complex Vitamins (B Complex), 1 TAB PO DAILY Donepezil Hydrochloride (Aricept), 1 TAB PO HS Memantine (Namenda), 10 MG PO BID Nutritional Supplements (Boost), 1 CAN PO TID Ranitidine (Zantac), 1 TAB PO BID Sertraline (Zoloft), 1 TAB PO DAILY Sulfamethoxazole-Trimethoprim (Bactrim Ds 800MG/160MG), 1 TAB PO BID Tamsulosin Hcl (Flomax), 1 CAP PO DAILY [Haloperidol 5MG/Ml], 1 MG IM TID Review of Systems Patient is not able to contribute to his review of systems due to end-stage Alzheimer's and chronically altered mental state. Physical Exam Vital Signs Date Time Temp Pulse Resp B/P Pulse Ox O2 Delivery O2 Flow Rate FiO2 12/13/16 00:10 Room Air 12/12/16 23:46 36.5 110 20 173/81 93 Room Air 12/12/16 19:42 36.4 101 20 131/87 97 Room Air 12/12/16 19:20 36.4 20 131/87 Room Air 12/12/16 19:20 Room Air 12/12/16 17:25 105 26 135/81 95 Room Air 12/12/16 15:28 108 24 130/55 95 Room Air 12/12/16 14:14 105 18 123/99 93 Room Air 12/12/16 13:43 98 12/12/16 13:22 36.8 99 18 145/67 97 Room Air The patient is lethargic, unable to communicate, lying in bed , has grunting at his baseline. HEENT--PERRL, mucous membranes and oropharynx dry. Neck--supple, no JVD or bruits, thyroid normal, trachea midline, no adenopathy. Heart--normal S1 and S2, no extra beats, no murmurs, rubs or gallops. Lungs--clear bilaterally, no respiratory distress, no accessory muscle use. Abdomen--normal bowel sounds and soft, nondistended, no hernias or masses, no organomegaly. Extremities--no cyanosis, clubbing or edema. There are good distal pulses b/l. Dermatologic--normal skin turgor, normal color, warm and dry, no abnormal lymph nodes, no rash. Neurologic--cranial nerves II through XII grossly intact, moves all extremities equally well. Psychiatric--non-communicative due to end-stage Alzheimer's. Diagnostics Laboratory Results Results Past 24 Hours Test 12/12/16 15:15 12/12/16 16:00 Range/Units Urine Color DK YELLOW Urine Appearance CLOUDY CLEAR Urine pH 5.0 4.5-7.5 Urine Specific [place] 1.016 1.000-1.030 Urine Protein 2+ NEG Urine Glucose (UA) NEG NEG Urine Ketones NEG NEG Urine Occult Blood 3+ NEG Urine Nitrite NEG NEG Urine Bilirubin NEG NEG Urine Urobilinogen NEG NEG Urine Leukocyte Esterase SMALL NEG Urine WBC (Auto) 5-10 0-5 /hpf Urine RBC (Auto) >30 0-4 /hpf Urine Hyaline Casts (Auto) 1-5 0-5 /lpf Urine Epithelial Cells (Auto) 0-5 0-5 /lpf Urine Bacteria (Auto) NEG NEG White Blood Count 11.18 4.8-10.8 K/uL Red Blood Count 3.70 4.7-6.1 M/uL Hemoglobin 11.6 14.0-18.0 g/dL Hematocrit 34.4 42-52 % Mean Corpuscular Volume 93.0 80-100 fL Mean Corpuscular Hemoglobin 31.4 25-34 pg Mean Corpuscular Hemoglobin Concent 33.7 32-36 g/dl Platelet Count 202 130-400 K/uL Mean Platelet Volume 11.0 7.4-10.4 fL Neutrophils (%) (Auto) 79.9 % Lymphocytes (%) (Auto) 8.7 % Monocytes (%) (Auto) 9.8 % Eosinophils (%) (Auto) 0.8 % Basophils (%) (Auto) 0.2 % Neutrophils # (Auto) 8.93 1.4-6.5 K/uL Lymphocytes # (Auto) 0.97 1.2-3.4 K/uL Monocytes # (Auto) 1.10 0.11-0.59 K/uL Eosinophils # (Auto) 0.09 0-0.5 K/uL Basophils # (Auto) 0.02 0-0.2 K/uL RDW Standard Deviation 46.4 36.4-46.3 fL RDW Coefficient of Variation 13.6 11.5-14.5 % Immature Granulocyte % (Auto) 0.6 % Immature Granulocyte # (Auto) 0.07 0.00-0.02 K/uL Prothrombin Time 10.7 9.0-12.0 SECONDS Prothromb Time International Ratio 1.0 0.9-1.1 Activated Partial Thromboplast Time 28.2 21.0-31.0 SECONDS Partial Thromboplastin Ratio 1.1 Sodium Level 150 136-145 mmol/L Potassium Level 4.4 3.5-5.1 mmol/L Chloride Level 115 98-107 mmol/L Carbon Dioxide Level 24 21-32 mmol/L Anion Gap 11.0 3-11 mmol/L Blood Urea Nitrogen 79 7-18 mg/dl Creatinine 4.50 0.60-1.40 mg/dl Est Creatinine Clear Calc Drug Dose 12.3 ml/min Estimated GFR () 14.6 Estimated GFR (Non- 12.6 BUN/Creatinine Ratio 17.6 10-20 Random Glucose 105 70-99 mg/dl Lactic Acid Level 0.8 0.4-2.0 mmol/L Calcium Level 8.8 8.5-10.1 mg/dl Total Bilirubin 0.4 0.2-1 mg/dl Aspartate Amino Transf (AST/SGOT) 26 15-37 U/L Alanine Aminotransferase (ALT/SGPT) 26 12-78 U/L Alkaline Phosphatase 71 45-117 U/L Total Creatine Kinase 241 39-308 U/L Troponin I < 0.015 0-0.045 ng/ml Total Protein 6.8 6.4-8.2 gm/dl Albumin 3.0 3.4-5.0 gm/dl Globulin 3.8 2.5-4.0 gm/dl Albumin/Globulin Ratio 0.8 0.9-2 Lipase 569 73-393 U/L Microbiology Results 12/12/16 MRSA DNA Surveillance Screen - Final, Complete Specimen Negative for MRSA by DNA Probe 12/12/16 Urine Culture, Received Pending Diagnostic Radiology Patient Name: LUIS LOPEZ [id number] Unit Number: [id number] Dictated: 12/12/161453 Transcribed: 12/12/161453 MS Printed Date/Time: [~ rep prt dt]/[~ rep prt tm] [~ rep ct labl] - [~ rep ct ivnm] [facility] [place] [address] Dictated: 12/12/161453 Transcribed: 12/12/161453 MS Printed Date/Time: [~ rep prt dt]/[~ rep prt tm] [~ rep ct labl] - [~ rep ct ivnm] CHEST ONE VIEW PORTABLE CLINICAL HISTORY: ABDOMINAL PAIN/GI pain COMPARISON STUDY: 12/04/2016 FINDINGS: The bones soft tissues and hemidiaphragms are normal. The cardiomediastinal silhouette is normal. The lungs are clear. The pulmonary vasculature is normal. Chronic tortuosity thoracic aorta. IMPRESSION: Chronic change. No acute process. Electronically signed by: Jori Sequeira M.D. 12/12/2016 2:57 PM Dictated Date/Time: 12/12/2016 2:54 PM The status of this report is Signed. Draft = Not yet reviewed or approved by Radiologist. Signed = Reviewed and approved by Radiologist. <AttendingPhy></AttendingPhy> <FamilyPhy>SCIChuck</FamilyPhy> <PrimaryPhy>SCI Chuck</PrimaryPhy> <UnitNumber>[id number]</UnitNumber> <VisitNumber> [id number]</VisitNumber> <PatientName>LUIS LOPEZ [id number]</PatientName> < DateOfBirth>1950</DateOfBirth> <Location>C.EDB</Location> <ServiceDate></ServiceDate> <MNE>ESINDI</MNE> <OrderingPhy>Ashish Heath M.D.</ OrderingPhy> <OrderingPhyMNE>f rep ord dr keane</OrderingPhyMNE> <DictatingPhyMNE> f rep dict dr keane</DictatingPhyMNE> <CCListMNE>f rep ct mne</CCListMNE> < AdmittingPhyMNE>f pt admit dr keane</AdmittingPhyMNE> <AttendingPhyMNE>f pt attend dr keane</AttendingPhyMNE> <ConsultingPhyMNE>f pt consult dr keane</ConsultingPhyMNE> <FamilyPhyMNE>f pt fam dr keane</FamilyPhyMNE> <OtherPhyMNE>f pt other dr keane</OtherPhyMNE> < PrimaryPhyMNE>f pt prim care dr keane</PrimaryPhyMNE> <ReferringPhyMNE>f pt referring dr keane</ReferringPhyMNE> Patient Name: LUIS LOPEZ [id number] Unit Number: [id number] Dictated: 12/12/161540 Transcribed: 12/12/16 154 MS Printed Date/Time: [~ rep prt dt]/[~ rep prt tm] [~ rep ct labl] - [~ rep ct ivnm] [facility] [place] [address] Dictated: 12/12/161540 Transcribed: 12/12/16 154 MS Printed Date/Time: [~ rep prt dt]/[~ rep prt tm] [~ rep ct labl] - [~ rep ct ivnm] [~ rep ct add3]] ABDOMEN AND PELVIS CT WITHOUT CONTRAST CT DOSE: 1209.40 mGy.cm HISTORY: Flank pain ABD PAIN, POSSIBLE OBSTRUCTION, NO CONTRAST TECHNIQUE: Multiaxial CT images of the abdomen and pelvis were performed without contrast. COMPARISON STUDY: None. FINDINGS: Lung bases are clear. Liver spleen and pancreas are grossly unremarkable. Prior cholecystectomy. Mild bilateral hydronephrosis and hydroureter. The appendix is air-filled. Anterior to the cecum is an inflammatory/masslike process measuring 4.5 x 3.5 cm. This appears to be containing a component of a decompressed bladder laterally with a possible with possible inclusion of a short segment of the right ureter. The appendix is again normal. This process appears to be relatively self-contained and contains a component of fat. Kirkland catheter is in position. Prostate is midline. There is no free fluid within the pelvic cul-de-sac. Bowel pattern itself appears to be nonobstructive. IMPRESSION: 1. Inflammatory slightly serpiginous masslike process measuring 4.5 x 3.5 cm inferior to the cecum and medial to a normal appendix. 2. This potentially represents an internal hernia containing and inflamed/pre-existing bladder diverticulum. 3. Possibility of an internal incarceration of components of the bladder are considered, with the possibility of bowel containment considered unlikely. 4. Mild bilateral hydroureteronephrosis possibly on the basis of pre-existing bladder outlet obstructive process. Electronically signed by: Jori Sequeira M.D. 12/12/2016 4:01 PM Dictated Date/Time: 12/12/2016 3:41 PM The status of this report is Signed. Draft = Not yet reviewed or approved by Radiologist. Signed = Reviewed and approved by Radiologist. <AttendingPhy></AttendingPhy> <FamilyPhy>SCIChuck</FamilyPhy> <PrimaryPhy>SCIBrettChuck</PrimaryPhy> <UnitNumber>[id number]</UnitNumber> <VisitNumber> [id number]</VisitNumber> <PatientName>LUIS LOPEZ [id number]</PatientName> < DateOfBirth>1950</DateOfBirth> <Location>C.EDB</Location> <ServiceDate></ServiceDate> <MNE>ESINDI</MNE> <OrderingPhy>Ashish Heath M.D.</ OrderingPhy> <OrderingPhyMNE>f rep ord dr keane</OrderingPhyMNE> <DictatingPhyMNE> f rep dict dr keane</DictatingPhyMNE> <CCListMNE>f rep ct mne</CCListMNE> < AdmittingPhyMNE>f pt admit dr keane</AdmittingPhyMNE> <AttendingPhyMNE>f pt attend dr keane</AttendingPhyMNE> <ConsultingPhyMNE>f pt consult dr keane</ConsultingPhyMNE> <FamilyPhyMNE>f pt fam dr keane</FamilyPhyMNE> <OtherPhyMNE>f pt other dr keane</OtherPhyMNE> < PrimaryPhyMNE>f pt prim care dr keane</PrimaryPhyMNE> <ReferringPhyMNE>f pt referring dr keane</ReferringPhyMNE> Patient Name: LUIS LOPEZ [id number] Unit Number: [id number] Dictated: 12/12/161855 Transcribed: 12/12/161855 ROBIN Printed Date/Time: [~ rep prt dt]/[~ rep prt tm] [~ rep ct labl] - [~ rep ct ivnm] [facility] Radiology Department [place], [place] [id number] Dictated: 12/12/161855 Transcribed: 12/12/161855 JA Printed Date/Time: [~ rep prt dt]/[~ rep prt tm] [~ rep ct labl] - [~ rep ct ivnm] [~ rep ct add3]] CYSTOGRAM CLINICAL HISTORY: Questionable bladder hernia, retention. COMPARISON STUDY: CT of the abdomen and pelvis performed earlier today. FLUOROSCOPY TIME: 1.9 minutes. TECHNIQUE: A raschel knitting machine operator fluoroscopic image of the pelvis was performed. A cystogram was then performed following instillation of 1000 cc of dilute Gastrografin through the patient's indwelling Kirkland catheter. AP and oblique images were obtained. FINDINGS: Screen captures were utilized for this exam. 10 fluoroscopic images were obtained. A raschel knitting machine operator fluoroscopic image was obtained. No contrast extravasation is identified. There was mild irregularity with subtle outpouching of the right superior bladder wall. Post void image was suboptimal. IMPRESSION: 1. No contrast extravasation to suggest bladder rupture. 2. Mild irregularity with outpouching of the right superior aspect of the bladder wall, a nonspecific finding. Electronically signed by: Hi Lawson M.D. 12/12/2016 7:01 PM Dictated Date/Time: 12/12/2016 6:56 PM The status of this report is Signed. Draft = Not yet reviewed or approved by Radiologist. Signed = Reviewed and approved by Radiologist. <AttendingPhy></AttendingPhy> <FamilyPhy>Chuck WRIGHT</FamilyPhy> <PrimaryPhy>Chuck WRIGHT</PrimaryPhy> <UnitNumber>[id number]</UnitNumber> <VisitNumber> [id number]</VisitNumber> <PatientName>LUIS LOPEZ [id number]</PatientName> < DateOfBirth>1950</DateOfBirth> <Location>C.EDB</Location> <ServiceDate></ServiceDate> <MNE>ESINDI</MNE> <OrderingPhy>Pan Mejia MD</ OrderingPhy> <OrderingPhyMNE>f rep ord dr keane</OrderingPhyMNE> <DictatingPhyMNE> f rep dict dr keane</DictatingPhyMNE> <CCListMNE>f rep ct lakhwinder</CCListMNE> < AdmittingPhyMNE>f pt admit dr keane</AdmittingPhyMNE> <AttendingPhyMNE>f pt attend dr keane</AttendingPhyMNE> <ConsultingPhyMNE>f pt consult dr keane</ConsultingPhyMNE> <FamilyPhyMNE>f pt fam dr keane</FamilyPhyMNE> <OtherPhyMNE>f pt other dr keane</OtherPhyMNE> < PrimaryPhyMNE>f pt prim care dr keane</PrimaryPhyMNE> <ReferringPhyMNE>f pt referring dr keane</ReferringPhyMNE> EKG EKG shows sinus tachycardia at 107 bpm, no acute ST-T changes. Impression Assessment and Plan Acute renal failure secondary to urinary retention and bladder outlet obstruction/hypernatremia--patient will be admitted to the medical surgical floor. After placement of the Kirkland catheter emergency department he released about 3000 mL of urine. He was seen by Dr. De Santiago from urology in the emergency department, who recommended that patient continue a Kirkland in place, and hydrate the patient in follow-up laboratories. His creatinine upon entry is 4.50, and approximately one week ago was 1.40. He'll be placed on half- normal saline at 150 mils per hour, and repeat a basic metabolic panel magnesium level in a.m. Will place on Zosyn 3.375 mg IV every 12 hours. Follow urine culture and sensitivity results. Continue tamsulosin 0.4 mg by mouth at bedtime. We'll hold Bactrim DS by mouth twice a day. Hypertension--continue amlodipine 10 mg by mouth at bedtime, enteric-coated aspirin 81 mg by mouth daily. End-stage Alzheimer's dementia--continue donepezil 10 mg by mouth at bedtime and Namenda 10 mg by mouth twice a day. GERD--continue ranitidine 150 mg by mouth twice a day. Depression--continue sertraline present dose. Agitation--continue haloperidol the change 1 mg IM 3 times a day when necessary 25 mg IM 3 times a day when necessary. Level of Care Med/Surg Advanced Directives Existing Advance Directive: No Existing Living Will: No (UNABLE TO ASSESS) Existing Power of Director Patient: No (UNABLE TO ASSESS) Resuscitation Status FULL RESUSCITATION VTE Prophylaxis VTE Risk Assessment Done? Y/N: Yes Risk Level: Moderate Given or contraindicated: SCD's
[2016-12-13 03:56] VITALS: BP 128/62; PULSE 89; TEMP 36.5; O2SAT 94
[2016-12-13] MEDS: SODIUM CHLORIDE 0.45% 1000ML 1,000 ML IV SCH ×2 (05:29→08:41)
[2016-12-13 07:14] VITALS: BP 132/77; PULSE 88; TEMP 37; O2SAT 95
--- NOTE | 2016-12-13 07:54 | Progress Note ---
Subjective Date of Service: Dec 13, 2016. Subjective Pt evaluation today including: conversation w/ family (guards), physical exam, chart review, lab review, review of inpatient medication list Pain: Mild baseline agitation Voiding: mckenna catheter in place (urine clear pink) 66 yo demented prisoner with retention for >3L. Yesterday's consult and notes reviewed. Mckenna draining. No new labs since yesterday. Unable to give significant history. Problem List Medical Problems: (1) Acute renal failure Status: Acute (2) Dehydration Status: Acute (3) Dehydration Status: Acute (4) Noncompliance with medications Status: Acute (5) Urinary retention Status: Acute Review of Systems Constitutional: No chills, No fever Respiratory: No sputum Abdomen: No nausea, No vomiting Male : + hematuria Neurologic: + memory loss Objective Vital Signs Date Time Temp Pulse Resp B/P Pulse Ox O2 Delivery O2 Flow Rate FiO2 12/13/16 07:14 37.0 88 19 132/77 95 Room Air 12/13/16 03:56 36.5 89 18 128/62 94 Room Air 12/13/16 00:10 Room Air 12/12/16 23:46 36.5 110 20 173/81 93 Room Air 12/12/16 19:42 36.4 101 20 131/87 97 Room Air 12/12/16 19:20 36.4 20 131/87 Room Air 12/12/16 19:20 Room Air 12/12/16 17:25 105 26 135/81 95 Room Air 12/12/16 15:28 108 24 130/55 95 Room Air 12/12/16 14:14 105 18 123/99 93 Room Air 12/12/16 13:43 98 12/12/16 13:22 36.8 99 18 145/67 97 Room Air Physical Exam General Appearance: + mild distress, + thin Neck: supple Respiratory/Chest: no accessory muscle use Cardiovascular: no JVD Abdomen: non tender, soft Neurologic/Psychiatric: + disoriented Skin: normal color Laboratory Results Last 24 Hours Test 12/12/16 15:15 12/12/16 16:00 12/13/16 04:44 Urine Color DK YELLOW Urine Appearance CLOUDY Urine pH 5.0 Urine Specific [place] 1.016 Urine Protein 2+ Urine Glucose (UA) NEG Urine Ketones NEG Urine Occult Blood 3+ Urine Nitrite NEG Urine Bilirubin NEG Urine Urobilinogen NEG Urine Leukocyte Esterase SMALL Urine WBC (Auto) 5-10 /hpf Urine RBC (Auto) >30 /hpf Urine Hyaline Casts (Auto) 1-5 /lpf Urine Epithelial Cells (Auto) 0-5 /lpf Urine Bacteria (Auto) NEG White Blood Count 11.18 K/uL Red Blood Count 3.70 M/uL Hemoglobin 11.6 g/dL Hematocrit 34.4 % Mean Corpuscular Volume 93.0 fL Mean Corpuscular Hemoglobin 31.4 pg Mean Corpuscular Hemoglobin Concent 33.7 g/dl Platelet Count 202 K/uL Mean Platelet Volume 11.0 fL Neutrophils (%) (Auto) 79.9 % Lymphocytes (%) (Auto) 8.7 % Monocytes (%) (Auto) 9.8 % Eosinophils (%) (Auto) 0.8 % Basophils (%) (Auto) 0.2 % Neutrophils # (Auto) 8.93 K/uL Lymphocytes # (Auto) 0.97 K/uL Monocytes # (Auto) 1.10 K/uL Eosinophils # (Auto) 0.09 K/uL Basophils # (Auto) 0.02 K/uL RDW Standard Deviation 46.4 fL RDW Coefficient of Variation 13.6 % Immature Granulocyte % (Auto) 0.6 % Immature Granulocyte # (Auto) 0.07 K/uL Prothrombin Time 10.7 SECONDS Prothromb Time International Ratio 1.0 Activated Partial Thromboplast Time 28.2 SECONDS Partial Thromboplastin Ratio 1.1 Sodium Level 150 mmol/L Potassium Level 4.4 mmol/L Chloride Level 115 mmol/L Carbon Dioxide Level 24 mmol/L Anion Gap 11.0 mmol/L Blood Urea Nitrogen 79 mg/dl Creatinine 4.50 mg/dl Est Creatinine Clear Calc Drug Dose 12.3 ml/min Estimated GFR () 14.6 Estimated GFR (Non- 12.6 BUN/Creatinine Ratio 17.6 Random Glucose 105 mg/dl Lactic Acid Level 0.8 mmol/L Calcium Level 8.8 mg/dl Total Bilirubin 0.4 mg/dl Aspartate Amino Transf (AST/SGOT) 26 U/L Alanine Aminotransferase (ALT/SGPT) 26 U/L Alkaline Phosphatase 71 U/L Total Creatine Kinase 241 U/L Troponin I < 0.015 ng/ml Total Protein 6.8 gm/dl Albumin 3.0 gm/dl Globulin 3.8 gm/dl Albumin/Globulin Ratio 0.8 Lipase 569 U/L Assessment and Plan A/P 66 yo demented male with retention. See Dr. De Santiago's recommendations. Seen volume in bladder detrusor failure to a degree is likely. Would anticipate need for extended mckenna / CIC. Monitor renal failure per primary service, no acute surgical intervention at this time. Discharge planning: other (nursing home)
[2016-12-13 08:09] LABS: BASO % 0.1 %; BASO ABS # 0.01 K/uL (0-0.2); COMPLETE YES; EOS % 1.9 %; HEMATOCRIT 35.5 % (42-52); IG% 0.6 %; LYMPH % 12.5 %; LYMPH ABS # 1.27 K/uL (1.2-3.4); MEAN CELL VOLUME 93.4 fL (80-100); MEAN CORPUSCULAR HEMOGLOBIN 31.1 pg (25-34); MEAN CORPUSCULAR HGB CONC 33.2 g/dl (32-36); MEAN PLATELET VOLUME 10.9 fL (7.4-10.4); MONO % 8.6 %; NEUT % 76.3 %; PLATELET COUNT 211 K/uL (130-400); WHITE BLOOD COUNT 10.18 K/uL (4.8-10.8)
[2016-12-13 08:17] LABS: INR 1.1 (0.9-1.1); PARTIAL THROMBOPLASTIN RATIO 1.1; PROTHROMBIN TIME (PATIENT) 11.3 SECONDS (9.0-12.0)
[2016-12-13 08:20] VITALS: O2SAT 95
[2016-12-13 09:04] LABS: BUN/CREATININE RATIO 17.7 (10-20); CALCIUM 8.3 mg/dl (8.5-10.1); MAGNESIUM 2.4 mg/dl (1.8-2.4); POTASSIUM 3.8 mmol/L (3.5-5.1)
[2016-12-13 09:05] LABS: CREATININE 1.9 mg/dl (0.60-1.40)
[2016-12-13] MEDS: PIPERACILL/TAZOBAC IV 3.375 GM in DEXTROSE 5% 100ML 100 ML IV SCH ×2 (11:34→18:06)
[2016-12-13] MEDS: VANCOMYCIN INJ 1,000 MG in SODIUM CHLORIDE 0.9% 250ML 250 ML IV SCH (11:49)
--- NOTE | 2016-12-13 14:17 | Pharmacy Progress Note ---
Pharmacy Antibiotic Prog Note Date of Service: Dec 13, 2016. Subjective: The patient got Vancomycin 1300 mg IV x1 yesterday night. Ordered Vancomycin 1 gm IV q24h starting at 1200 today. The patient is currently on day # 12/08 of Vancomycin IV therapy. Objective: Height (Feet): 5 Height (Inches): 2.00 Weight (Kilograms): 64.900 Levels: Item Value Date Time Random Vancomycin Level 11.2 mcg/ml 12/13/16 0930 Lab Results (24hrs): Laboratory Tests Test 12/12/16 16:00 12/13/16 07:45 BUN/Creatinine Ratio 17.6 17.7 Blood Urea Nitrogen 79 mg/dl 34 mg/dl Creatinine 4.50 mg/dl 1.90 mg/dl White Blood Count 11.18 K/uL 10.18 K/uL Red Blood Count 3.70 M/uL 3.80 M/uL Hemoglobin 11.6 g/dL 11.8 g/dL Hematocrit 34.4 % 35.5 % Mean Corpuscular Volume 93.0 fL 93.4 fL Mean Corpuscular Hemoglobin 31.4 pg 31.1 pg Mean Corpuscular Hemoglobin Concent 33.7 g/dl 33.2 g/dl Platelet Count 202 K/uL 211 K/uL Mean Platelet Volume 11.0 fL 10.9 fL Neutrophils (%) (Auto) 79.9 % 76.3 % Lymphocytes (%) (Auto) 8.7 % 12.5 % Monocytes (%) (Auto) 9.8 % 8.6 % Eosinophils (%) (Auto) 0.8 % 1.9 % Basophils (%) (Auto) 0.2 % 0.1 % Neutrophils # (Auto) 8.93 K/uL 7.77 K/uL Lymphocytes # (Auto) 0.97 K/uL 1.27 K/uL Monocytes # (Auto) 1.10 K/uL 0.88 K/uL Eosinophils # (Auto) 0.09 K/uL 0.19 K/uL Basophils # (Auto) 0.02 K/uL 0.01 K/uL Micro Results: Urine cx pending. Assessment & Plan: * Vancomycin random level obtained this AM = 11.2. * Ke = 0.029 /hr, t1/2 = 23.9 hrs, * Started Vancomycin 1 gm IV q24h at 1200 tomorrow. * Scr has improved from 4.5 yesterday to 1.9 today. Expecting this to improve further. If it gets worse then will need to hold Vancomycin and check a random Vancomycin level in the AM before more doses are given. * Trough has been ordered before noon dose on 12/15. * Will continue to follow and make dose adjustments based on renal function and levels. Pharmacy will continue to follow and will adjust dose/frequency as necessary. Thank you
[2016-12-13 15:36] VITALS: BP 129/79; PULSE 84; TEMP 36.4; O2SAT 97
--- NOTE | 2016-12-13 16:18 | Progress Note ---
Subjective Date of Service: Dec 13, 2016. Subjective Pt evaluation today including: conversation w/ patient, physical exam, chart review, review of studies, conversation w/ senior [employer] consultant, review of inpatient medication list Sometimes combative and yelling, confused, per guard her from intermediate, and report is his baseline Patient fall asleep and snoring, sometimes angry, combative yelling, when he wake up Seems when we move his any part of his body he was screaming, which is not new Problem List Medical Problems: (1) Acute renal failure Status: Acute (2) Dehydration Status: Acute (3) Dehydration Status: Acute (4) Noncompliance with medications Status: Acute (5) Urinary retention Status: Acute Review of Systems Constitutional: + problem reported (not able to review of system) Objective Vital Signs Date Time Temp Pulse Resp B/P Pulse Ox O2 Delivery O2 Flow Rate FiO2 12/13/16 15:36 36.4 84 18 129/79 97 Room Air 12/13/16 08:20 95 Room Air 12/13/16 07:14 37.0 88 19 132/77 95 Room Air 12/13/16 03:56 36.5 89 18 128/62 94 Room Air 12/13/16 00:10 Room Air 12/12/16 23:46 36.5 110 20 173/81 93 Room Air 12/12/16 19:42 36.4 101 20 131/87 97 Room Air 12/12/16 19:20 36.4 20 131/87 Room Air 12/12/16 19:20 Room Air 12/12/16 17:25 105 26 135/81 95 Room Air Physical Exam General Appearance: + thin, + pertinent finding (frail, chronically ill-looking , agitative, not follow-up commands, confused) Eyes: + pertinent finding (close his eyes, occasional open eyes, no conjunctivitis) ENT: + pertinent finding (dry mucous membranes) Neck: supple Respiratory/Chest: chest non-tender, no respiratory distress, no accessory muscle use, + decreased breath sounds Cardiovascular: regular rate, rhythm, no edema, no gallop Abdomen: normal bowel sounds, non tender, soft Extremities: non-tender, no pedal edema, normal capillary refill Neurologic/Psychiatric: + pertinent finding (droop) Skin: normal color Laboratory Results Last 24 Hours Test 12/13/16 07:45 12/13/16 09:30 White Blood Count 10.18 K/uL Red Blood Count 3.80 M/uL Hemoglobin 11.8 g/dL Hematocrit 35.5 % Mean Corpuscular Volume 93.4 fL Mean Corpuscular Hemoglobin 31.1 pg Mean Corpuscular Hemoglobin Concent 33.2 g/dl Platelet Count 211 K/uL Mean Platelet Volume 10.9 fL Neutrophils (%) (Auto) 76.3 % Lymphocytes (%) (Auto) 12.5 % Monocytes (%) (Auto) 8.6 % Eosinophils (%) (Auto) 1.9 % Basophils (%) (Auto) 0.1 % Neutrophils # (Auto) 7.77 K/uL Lymphocytes # (Auto) 1.27 K/uL Monocytes # (Auto) 0.88 K/uL Eosinophils # (Auto) 0.19 K/uL Basophils # (Auto) 0.01 K/uL RDW Standard Deviation 46.2 fL RDW Coefficient of Variation 13.4 % Immature Granulocyte % (Auto) 0.6 % Immature Granulocyte # (Auto) 0.06 K/uL Prothrombin Time 11.3 SECONDS Prothromb Time International Ratio 1.1 Activated Partial Thromboplast Time 28.1 SECONDS Partial Thromboplastin Ratio 1.1 Sodium Level 150 mmol/L Potassium Level 3.8 mmol/L Chloride Level 115 mmol/L Carbon Dioxide Level 24 mmol/L Anion Gap 11.0 mmol/L Blood Urea Nitrogen 34 mg/dl Creatinine 1.90 mg/dl Est Creatinine Clear Calc Drug Dose 29.1 ml/min Estimated GFR () 41.4 Estimated GFR (Non- 35.7 BUN/Creatinine Ratio 17.7 Random Glucose 103 mg/dl Calcium Level 8.3 mg/dl Magnesium Level 2.4 mg/dl Total Bilirubin 1.0 mg/dl Direct Bilirubin 0.2 mg/dl Aspartate Amino Transf (AST/SGOT) 35 U/L Alanine Aminotransferase (ALT/SGPT) 27 U/L Alkaline Phosphatase 70 U/L Total Protein 6.3 gm/dl Albumin 2.7 gm/dl Random Vancomycin Level 11.2 mcg/ml Assessment and Plan 66-year-old male admitted to hospital on 12/12/2016 from intermediate with no problem in below Acute renal failure likely from post renal factor secondary to urinary retention and bladder outlet obstruction improving His creatinine upon entry is 4.50, and approximately one week ago was 1.40., Improving at 1.9 today urinary retention and bladder outlet obstruction: improving Mckenna catheter emergency department he released about 3000 mL of urine. was seen by Dr. De Santiago from urology in the emergency department, who recommended that patient continue a Mckenna in place, Urologist on the case Recommend: Continue mckenna catheter for at least 10 days cont Flomax. f/u UC&S and urine cytology for hematuria. hypernatremia no change: Because of he has acute kidney failure, And he has baseline dementia , I feel this condition is from poor by mouth intake, has been on IV fluid which is D5 half NSS, I believe vol is approaching to euvolemic I will encourage oral by mouth intake with free water however he possible has a limitation because he is confuse and dementia , I will change IV fluid to 11/01/NSS because has cont hypernatremia , continue IV fluid Patient was having mild leukocytosis at 11,000 white count, no fever, negative lactase, I don't believe patient has sepsis, for now we will continue IV antibiotic broad-spectrum coverage, follow-up C+S Hypertension--continue amlodipine 10 mg by mouth at bedtime, enteric-coated aspirin 81 mg by mouth daily. End-stage Alzheimer's dementia--continue donepezil 10 mg by mouth at bedtime and Namenda 10 mg by mouth twice a day. GERD--continue ranitidine 150 mg by mouth twice a day. Depression--continue sertraline present dose. Agitation--continue haloperidol the change 1 mg IM 3 times a day when necessary 25 mg IM 3 times a day when necessary. Possible oral thrush, ordered Magic mouthwash, RN please take care of this because pt is confused/dementia, not able to do it by self PT OT and social director, Follow-up tomorrow morning labs Continued [facility] stay due to: multiple IV medications needed Discharge planning: home, other (intermediate)
[2016-12-13] MEDS: D5W AND 1/4NSS 1,000 ML IV SCH (16:58)
[2016-12-13] MEDS ORDERED: MAGIC MOUTHWASH PO SCH (18:00)
[2016-12-13] MEDS: DEXAMETHASONE CONC SOLN 3.75 MG, NYSTATIN SUSP 30 ML, DiphenhydrAMINE HCL SYRUP 300 MG,... PO SCH ×5 (18:07)
[2016-12-13 23:20] VITALS: BP 126/78; PULSE 90; TEMP 36.7; O2SAT 94
[2016-12-14] MEDS: D5W AND 1/4NSS 1,000 ML IV SCH ×4 (00:53→19:02)
[2016-12-14] MEDS: DEXAMETHASONE CONC SOLN 3.75 MG, NYSTATIN SUSP 30 ML, DiphenhydrAMINE HCL SYRUP 300 MG,... PO SCH ×25 (00:54→23:44)
[2016-12-14] MEDS: PIPERACILL/TAZOBAC IV 3.375 GM in DEXTROSE 5% 100ML 100 ML IV SCH ×3 (04:19→21:20)
[2016-12-14 07:32] VITALS: BP 141/94; PULSE 87; TEMP 36.9; O2SAT 94
[2016-12-14 07:45] VITALS: O2SAT 94
[2016-12-14 08:30] LABS: BASO % 0.1 %; BASO ABS # 0.01 K/uL (0-0.2); COMPLETE YES; EOS % 2.1 %; HEMATOCRIT 37.1 % (42-52); LYMPH % 16.5 %; LYMPH ABS # 1.52 K/uL (1.2-3.4); MEAN CELL VOLUME 90.3 fL (80-100); MEAN CORPUSCULAR HEMOGLOBIN 31.1 pg (25-34); MEAN CORPUSCULAR HGB CONC 34.5 g/dl (32-36); MEAN PLATELET VOLUME 10.5 fL (7.4-10.4); MONO % 8.4 %; NEUT % 71.9 %; PLATELET COUNT 246 K/uL (130-400); RED BLOOD COUNT 4.11 M/uL (4.7-6.1); WHITE BLOOD COUNT 9.22 K/uL (4.8-10.8)
[2016-12-14 08:45] LABS: INR 1.1 (0.9-1.1); PARTIAL THROMBOPLASTIN RATIO 1.1; PROTHROMBIN TIME (PATIENT) 11.4 SECONDS (9.0-12.0)
[2016-12-14 09:00] LABS: BUN/CREATININE RATIO 11.1 (10-20); CALCIUM 8.1 mg/dl (8.5-10.1); CREATININE 1.2 mg/dl (0.60-1.40); POTASSIUM 3.6 mmol/L (3.5-5.1)
--- NOTE | 2016-12-14 11:26 | Medical Student: [facility] ---
Med Student Progress Note Date of Service Dec 14, 2016. Subjective This is 66 y/o male from [facility] with pmh of end stage Alzheimers, Hepatitis C, GERD, PTSD who presented on 12/13 for worsening abdominal pain. Mckenna cath placement yielded 3000mL and labs were significant for acute renal failure. UA was significant for hematuria. At this time, hematuria has resolved. Patient is poor historian but per nursing staff and guards the patient is at worse than baseline in terms of mental status. He is more vocal and combative than usual. Additionally, as of today he has had significant coughing spells with difficulty tolerating PO intake. There is also concern for thrush. Patient did have bowel movement today. ROS could not be obtained from patient as is poor historian. Objective Vital Signs Date Time Temp Pulse Resp B/P Pulse Ox O2 Delivery O2 Flow Rate FiO2 12/14/16 07:32 36.9 87 21 141/94 94 Room Air 12/14/16 00:32 Room Air 12/13/16 23:20 36.7 90 20 126/78 94 Room Air 12/13/16 16:00 Room Air 12/13/16 15:36 36.4 84 18 129/79 97 Room Air Physical Exam General Appearance: + moderate distress, + thin Respiratory/Chest: chest non-tender, lungs clear, normal breath sounds, no respiratory distress Cardiovascular: regular rate, rhythm, no edema, no gallop, no JVD, no murmur Abdomen: normal bowel sounds, non tender Extremities: normal range of motion, non-tender, normal inspection, no pedal edema Neurologic/Psychiatric: + disoriented Skin: normal color, warm/dry, no rash Lymphatic: no adenopathy Laboratory Results Last 24 Hours Test 12/14/16 08:20 White Blood Count 9.22 K/uL Red Blood Count 4.11 M/uL Hemoglobin 12.8 g/dL Hematocrit 37.1 % Mean Corpuscular Volume 90.3 fL Mean Corpuscular Hemoglobin 31.1 pg Mean Corpuscular Hemoglobin Concent 34.5 g/dl Platelet Count 246 K/uL Mean Platelet Volume 10.5 fL Neutrophils (%) (Auto) 71.9 % Lymphocytes (%) (Auto) 16.5 % Monocytes (%) (Auto) 8.4 % Eosinophils (%) (Auto) 2.1 % Basophils (%) (Auto) 0.1 % Neutrophils # (Auto) 6.64 K/uL Lymphocytes # (Auto) 1.52 K/uL Monocytes # (Auto) 0.77 K/uL Eosinophils # (Auto) 0.19 K/uL Basophils # (Auto) 0.01 K/uL RDW Standard Deviation 41.7 fL RDW Coefficient of Variation 12.7 % Immature Granulocyte % (Auto) 1.0 % Immature Granulocyte # (Auto) 0.09 K/uL Prothrombin Time 11.4 SECONDS Prothromb Time International Ratio 1.1 Activated Partial Thromboplast Time 28.7 SECONDS Partial Thromboplastin Ratio 1.1 Sodium Level 143 mmol/L Potassium Level 3.6 mmol/L Chloride Level 109 mmol/L Carbon Dioxide Level 25 mmol/L Anion Gap 9.0 mmol/L Blood Urea Nitrogen 13 mg/dl Creatinine 1.20 mg/dl Est Creatinine Clear Calc Drug Dose 46.1 ml/min Estimated GFR () 72.1 Estimated GFR (Non- 62.2 BUN/Creatinine Ratio 11.1 Random Glucose 113 mg/dl Calcium Level 8.1 mg/dl Magnesium Level 2.0 mg/dl Total Bilirubin 1.3 mg/dl Direct Bilirubin 0.3 mg/dl Aspartate Amino Transf (AST/SGOT) 48 U/L Alanine Aminotransferase (ALT/SGPT) 30 U/L Alkaline Phosphatase 71 U/L Total Protein 6.8 gm/dl Albumin 2.8 gm/dl Medications Medications Administered Medications (Trade) Dose Ordered Sig/Ana Route Start Time Stop Time Status Last Admin Dose Admin Haloperidol Lactate 10 mg 10 mg NOW STAT IM 12/12/16 14:25 12/12/16 14:29 DC 12/12/16 14:33 10 MG Sodium Chloride 500 ml @ 999 mls/hr Q31M STAT IV 12/12/16 14:25 12/12/16 14:55 DC 12/12/16 16:12 999 MLS/HR Sodium Chloride (Nss 1000ml) 1,000 ml @ 200 mls/hr Q5H STAT IV 12/12/16 14:25 12/12/16 19:24 DC 12/12/16 16:12 200 MLS/HR Piperacillin Sod/ Tazobactam Sod 4.5 gm 4.5 gm NOW STAT IV 12/12/16 16:19 12/12/16 16:20 DC 12/12/16 16:30 4.5 GM Sodium Chloride 1,000 ml @ 150 mls/hr Q6H40M IV 12/12/16 17:45 12/13/16 16:21 DC 12/13/16 08:41 150 MLS/HR Piperacillin Sod/ Tazobactam Sod/ Dextrose (Zosyn Iv/D5 100ml) 115 ml @ 28.75 mls/ hr Q12H IV 12/13/16 02:00 12/13/16 09:47 DC 12/13/16 02:22 28.75 MLS/HR Haloperidol Lactate 5 mg 5 mg TID PRN IM 12/12/16 17:45 01/11/17 17:44 12/13/16 20:32 5 MG Vancomycin HCl 1300 mg/Sodium Chloride 276 ml @ 125 mls/hr TODAY@2000 ONCE IV 12/12/16 20:00 12/12/16 22:12 DC 12/12/16 21:17 125 MLS/HR Piperacillin Sod/ Tazobactam Sod 3.375 gm/Dextrose 115 ml @ 28.75 mls/ hr Q8H IV 12/13/16 10:00 12/22/16 01:59 12/14/16 04:19 28.75 MLS/HR Vancomycin HCl 1000 mg/Sodium Chloride 270 ml @ 125 mls/hr DAILY@1200 IV 12/13/16 12:00 12/23/16 11:59 12/13/16 11:49 125 MLS/HR Dextrose/Sodium Chloride 1,000 ml @ 150 mls/hr Q6H40M IV 12/13/16 16:45 01/12/17 16:44 12/14/16 05:11 150 MLS/HR Dexamethasone/ Nystatin/ Diphenhydramine HCl/Sucrose/ Microcrystalline Cellulose/Barcode (Decadron Conc Soln/Mycostatin Susp/Benadryl Syrup/Ora-Sweet Syrup/Ora-Plus Susp. Vehicle) Q6 PO 12/13/16 18:00 01/12/17 17:59 12/14/16 05:11 5 ML Assessment and Plan Assessment and Plan: This is a 66 y/o male with pmh of alzheimers, HTN, PTSD, GERD, Hep C who presents with acute renal failure Acute renal failure, likely from urinary outflow obstruction -Creatinine trending down. Was 4.5 on admission --> 1.9 today. -CT concerning for inflamed urinary diverticulum/internal hernia containing bladder. Cystogram demonstrates non specific bladder outpouching. -Per urology, recommend mckenna cath x10 days, may consider CIC -continue zosyn & vancomycin, monitor leukocytosis -continue tamsulosin -recheck urine culture and UA Alzheimers -continue memantine 10 mg po BID and donepizil 10 mg po -haldol prn for combative Hypernatremia -switch iv fluid to 1/4 NSS -repeat BMP Hypertension -continue amlodipine 10 mg PO -aspirin 81 mg PO GERD -continue ranitidine 150 mg PO BID Depression -continue sertraline Agitation -continue haloperidol 5 mg TID prn Possible oral thrush -magic mouthwash Aspiration precautions -pureed diet, assistance with feeding -consider CXR due to worsening cough Disposition -discussed with guards, not likely to be able to have mckenna cath at [facility] -continue hospital admission Continued [facility] stay due to: inadequate po fluid intake, voiding difficulties, multiple IV medications needed Discharge planning: other ([facility])
--- NOTE | 2016-12-14 12:03 | Progress Note ---
Subjective Date of Service: Dec 14, 2016. Subjective Pt evaluation today including: conversation w/ patient, physical exam, chart review, lab review, review of studies, conversation w/ information services consultant, review of inpatient medication list Voiding: mckenna catheter in place Nurse report possible difficult to take current diet, possible aspiration and coughing when eating, , generally looks better, he know name, less combative, more alert, Problem List Medical Problems: (1) Acute renal failure Status: Acute (2) Dehydration Status: Acute (3) Dehydration Status: Acute (4) Noncompliance with medications Status: Acute (5) Urinary retention Status: Acute Review of Systems Constitutional: + problem reported (review of system is limited because patient 's mental status changes), No chills, No fatigue, No fever, No see HPI, No sweats, No weakness, No weight loss Respiratory: No dyspnea on exertion, No shortness of breath Cardiac: No chest pain, No orthopnea Musculoskeletal: No joint pain Neurologic: + memory loss Psychiatric: + anxiety Objective Vital Signs Date Time Temp Pulse Resp B/P Pulse Ox O2 Delivery O2 Flow Rate FiO2 12/14/16 07:32 36.9 87 21 141/94 94 Room Air 12/14/16 00:32 Room Air 12/13/16 23:20 36.7 90 20 126/78 94 Room Air 12/13/16 16:00 Room Air 12/13/16 15:36 36.4 84 18 129/79 97 Room Air Physical Exam General Appearance: + mild distress, + thin, + pertinent finding (frail, chronically ill-looking,) Eyes: normal inspection, PERRL, EOMI, sclerae normal ENT: normal ENT inspection, hearing grossly normal, pharynx normal, + pertinent finding (significant dry mucous membranes) Neck: supple, no adenopathy, thyroid normal, no JVD, no carotid bruits, trachea midline Respiratory/Chest: chest non-tender, normal breath sounds, no respiratory distress, no accessory muscle use, + decreased breath sounds Cardiovascular: regular rate, rhythm, no edema, no gallop, no JVD, no murmur Abdomen: normal bowel sounds, non tender, soft, no organomegaly, no pulsatile mass, + pertinent finding (Mckenna catheter in place) Extremities: normal range of motion, non-tender, normal inspection, no pedal edema, no calf tenderness, normal capillary refill, pelvis stable Neurologic/Psychiatric: + pertinent finding (no facial droop, but decreased cognition is not new) Skin: normal color, warm/dry, no rash Lymphatic: no adenopathy Laboratory Results Last 24 Hours Test 12/14/16 08:20 White Blood Count 9.22 K/uL Red Blood Count 4.11 M/uL Hemoglobin 12.8 g/dL Hematocrit 37.1 % Mean Corpuscular Volume 90.3 fL Mean Corpuscular Hemoglobin 31.1 pg Mean Corpuscular Hemoglobin Concent 34.5 g/dl Platelet Count 246 K/uL Mean Platelet Volume 10.5 fL Neutrophils (%) (Auto) 71.9 % Lymphocytes (%) (Auto) 16.5 % Monocytes (%) (Auto) 8.4 % Eosinophils (%) (Auto) 2.1 % Basophils (%) (Auto) 0.1 % Neutrophils # (Auto) 6.64 K/uL Lymphocytes # (Auto) 1.52 K/uL Monocytes # (Auto) 0.77 K/uL Eosinophils # (Auto) 0.19 K/uL Basophils # (Auto) 0.01 K/uL RDW Standard Deviation 41.7 fL RDW Coefficient of Variation 12.7 % Immature Granulocyte % (Auto) 1.0 % Immature Granulocyte # (Auto) 0.09 K/uL Prothrombin Time 11.4 SECONDS Prothromb Time International Ratio 1.1 Activated Partial Thromboplast Time 28.7 SECONDS Partial Thromboplastin Ratio 1.1 Sodium Level 143 mmol/L Potassium Level 3.6 mmol/L Chloride Level 109 mmol/L Carbon Dioxide Level 25 mmol/L Anion Gap 9.0 mmol/L Blood Urea Nitrogen 13 mg/dl Creatinine 1.20 mg/dl Est Creatinine Clear Calc Drug Dose 46.1 ml/min Estimated GFR () 72.1 Estimated GFR (Non- 62.2 BUN/Creatinine Ratio 11.1 Random Glucose 113 mg/dl Calcium Level 8.1 mg/dl Magnesium Level 2.0 mg/dl Total Bilirubin 1.3 mg/dl Direct Bilirubin 0.3 mg/dl Aspartate Amino Transf (AST/SGOT) 48 U/L Alanine Aminotransferase (ALT/SGPT) 30 U/L Alkaline Phosphatase 71 U/L Total Protein 6.8 gm/dl Albumin 2.8 gm/dl Assessment and Plan 66-year-old male admitted to hospital on 12/12/2016 from [facility] with Acute renal failure likely from post renal factor secondary to urinary retention and bladder outlet obstruction improving Acute renal failure likely from post renal factor secondary to urinary retention and bladder outlet obstruction improving His creatinine upon entry is 4.50, and approximately one week ago was 1.40., Continue improving and normalizing urinary retention and bladder outlet obstruction: improving Continue improving, continue Mckenna Urologist on the case Recommend: Continue mckenna catheter for at least 10 days cont Flomax. f/u UC&S and urine cytology for hematuria. hypernatremia upon admission Improved, continue current IV fluid Possible speech swallowing dysfunction, request a speech valuation, start to mechanical soft diet Possible sepsis upon admission Patient was having mild leukocytosis at 11,000 white count, no fever, negative lactase, I don't believe patient has sepsis, for now we will continue IV antibiotic broad-spectrum coverage, follow-up C+S, so far no growth We'll continue broad-spectrum antibiotic coverage for now because patient's significantly improved Will follow-up blood culture and urine culture, possible stop to antibiotic tomorrow if no any positive culture coming up Hypertension--continue amlodipine 10 mg by mouth at bedtime, enteric-coated aspirin 81 mg by mouth daily. End-stage Alzheimer's dementia--continue donepezil 10 mg by mouth at bedtime and Namenda 10 mg by mouth twice a day. GERD--continue ranitidine 150 mg by mouth twice a day. Depression--continue sertraline present dose. Possible metabolic encephalopathy from acute kidney failure/ hypernatremia, sepsis, with Agitation: Seems a little bit better oral thrush, ordered Magic mouthwash, RN please take care of this because pt is confused/dementia, not able to do it by self PT OT and community mental health social worker, Continued [facility] stay due to: inadequate po fluid intake, voiding difficulties, multiple IV medications needed Discharge planning: other ([facility])
[2016-12-14] MEDS: VANCOMYCIN INJ 1,000 MG in SODIUM CHLORIDE 0.9% 250ML 250 ML IV SCH (12:23)
--- NOTE | 2016-12-14 12:26 | Progress Note ---
Subjective Date of Service: Dec 14, 2016. Subjective Pt evaluation today including: conversation w/ patient, physical exam, chart review, lab review, review of inpatient medication list pt remains demented and unable to respond coherently although he is alert urine clear Problem List Medical Problems: (1) Acute renal failure Status: Acute (2) Dehydration Status: Acute (3) Dehydration Status: Acute (4) Noncompliance with medications Status: Acute (5) Urinary retention Status: Acute Objective Vital Signs Date Time Temp Pulse Resp B/P Pulse Ox O2 Delivery O2 Flow Rate FiO2 12/14/16 07:32 36.9 87 21 141/94 94 Room Air 12/14/16 00:32 Room Air 12/13/16 23:20 36.7 90 20 126/78 94 Room Air 12/13/16 16:00 Room Air 12/13/16 15:36 36.4 84 18 129/79 97 Room Air Laboratory Results Last 24 Hours Test 12/14/16 08:20 White Blood Count 9.22 K/uL Red Blood Count 4.11 M/uL Hemoglobin 12.8 g/dL Hematocrit 37.1 % Mean Corpuscular Volume 90.3 fL Mean Corpuscular Hemoglobin 31.1 pg Mean Corpuscular Hemoglobin Concent 34.5 g/dl Platelet Count 246 K/uL Mean Platelet Volume 10.5 fL Neutrophils (%) (Auto) 71.9 % Lymphocytes (%) (Auto) 16.5 % Monocytes (%) (Auto) 8.4 % Eosinophils (%) (Auto) 2.1 % Basophils (%) (Auto) 0.1 % Neutrophils # (Auto) 6.64 K/uL Lymphocytes # (Auto) 1.52 K/uL Monocytes # (Auto) 0.77 K/uL Eosinophils # (Auto) 0.19 K/uL Basophils # (Auto) 0.01 K/uL RDW Standard Deviation 41.7 fL RDW Coefficient of Variation 12.7 % Immature Granulocyte % (Auto) 1.0 % Immature Granulocyte # (Auto) 0.09 K/uL Prothrombin Time 11.4 SECONDS Prothromb Time International Ratio 1.1 Activated Partial Thromboplast Time 28.7 SECONDS Partial Thromboplastin Ratio 1.1 Sodium Level 143 mmol/L Potassium Level 3.6 mmol/L Chloride Level 109 mmol/L Carbon Dioxide Level 25 mmol/L Anion Gap 9.0 mmol/L Blood Urea Nitrogen 13 mg/dl Creatinine 1.20 mg/dl Est Creatinine Clear Calc Drug Dose 46.1 ml/min Estimated GFR () 72.1 Estimated GFR (Non- 62.2 BUN/Creatinine Ratio 11.1 Random Glucose 113 mg/dl Calcium Level 8.1 mg/dl Magnesium Level 2.0 mg/dl Total Bilirubin 1.3 mg/dl Direct Bilirubin 0.3 mg/dl Aspartate Amino Transf (AST/SGOT) 48 U/L Alanine Aminotransferase (ALT/SGPT) 30 U/L Alkaline Phosphatase 71 U/L Total Protein 6.8 gm/dl Albumin 2.8 gm/dl Assessment and Plan pt has normalized creatinine so renal failure clearly related to retention. He is unlikely to void in the short term given 3 liters in bladder. He will need indwelling catheter or cic on discharge will start finasteride and check a psa Continued [facility] stay due to: inadequate po fluid intake, voiding difficulties, multiple IV medications needed Discharge planning: other (long-term)
[2016-12-14 15:22] VITALS: BP 171/86; PULSE 88; TEMP 36.9; O2SAT 92
[2016-12-14] MEDS ORDERED: LORAZEPAM INJ 0.5 MG in SYRINGE 0.25 ML IV PRN (16:30)
[2016-12-14 19:25] VITALS: BP 141/82; PULSE 87
[2016-12-14 23:45] VITALS: BP 147/92; PULSE 101; TEMP 37.3; O2SAT 97
[2016-12-15] MEDS: D5W AND 1/4NSS 1,000 ML IV SCH ×2 (01:48→08:33)
[2016-12-15] MEDS: PIPERACILL/TAZOBAC IV 3.375 GM in DEXTROSE 5% 100ML 100 ML IV SCH (04:14)
[2016-12-15] MEDS: DEXAMETHASONE CONC SOLN 3.75 MG, NYSTATIN SUSP 30 ML, DiphenhydrAMINE HCL SYRUP 300 MG,... PO SCH ×10 (06:23→11:55)
[2016-12-15 08:12] LABS: BASO % 0.2 %; BASO ABS # 0.02 K/uL (0-0.2); COMPLETE YES; EOS % 1.7 %; HEMATOCRIT 37.4 % (42-52); IG% 0.6 %; LYMPH % 11.5 %; LYMPH ABS # 1.23 K/uL (1.2-3.4); MEAN CELL VOLUME 89.9 fL (80-100); MEAN CORPUSCULAR HEMOGLOBIN 31.5 pg (25-34); MEAN PLATELET VOLUME 10.4 fL (7.4-10.4); MONO % 7.5 %; NEUT % 78.5 %; PLATELET COUNT 302 K/uL (130-400); RED BLOOD COUNT 4.16 M/uL (4.7-6.1); WHITE BLOOD COUNT 10.74 K/uL (4.8-10.8)
[2016-12-15 08:20] LABS: INR 1.1 (0.9-1.1); PARTIAL THROMBOPLASTIN RATIO 1.1; PROTHROMBIN TIME (PATIENT) 11.3 SECONDS (9.0-12.0)
[2016-12-15 08:25] VITALS: BP 178/87; PULSE 97; TEMP 36.8; O2SAT 90
[2016-12-15 08:40] LABS: CALCIUM 8.1 mg/dl (8.5-10.1); CREATININE 1.2 mg/dl (0.60-1.40); MAGNESIUM 1.9 mg/dl (1.8-2.4); POTASSIUM 3.3 mmol/L (3.5-5.1)
[2016-12-15 08:45] VITALS: O2SAT 90
[2016-12-15] MEDS ORDERED: FINASTERIDE 5 MG TAB PO SCH (09:00)
[2016-12-15] MEDS ORDERED: RANITIDINE HCL 150 MG TAB PO SCH (09:00)
[2016-12-15] MEDS ORDERED: SERTRALINE HCL 100 MG TAB PO SCH (09:00)
[2016-12-15] MEDS ORDERED: CEPHALEXIN MONOHYDRATE 500 MG CAP PO SCH (09:00)
[2016-12-15] MEDS ORDERED: ACETAMINOPHEN 325 MG TAB PO SCH (09:00)
[2016-12-15] MEDS ORDERED: VITAMIN B COMPLEX TAB PO SCH (09:00)
[2016-12-15] MEDS ORDERED: MEMANTINE 10 MG TAB PO SCH (09:00)
[2016-12-15] MEDS ORDERED: TAMSULOSIN HCL 0.4 MG CAP PO SCH (09:00)
[2016-12-15] MEDS ORDERED: ASPIRIN 81 MG ECTAB PO SCH (09:00)
[2016-12-15] MEDS: BOOST VANILLA PO SCH ×4 (10:31→15:19)
[2016-12-15] MEDS ORDERED: POTASSIUM CHLR 20 MEQ / WTR 20 MEQ in PREMIXED WATER 100 ML IV STA (11:20)
[2016-12-15] MEDS ORDERED: VANCOMYCIN TROUGH SCH (11:30)
[2016-12-15] MEDS: POTASSIUM CHLR 10MEQ / WTR IV SCH ×2 (11:48→13:00)
[2016-12-15] MEDS ORDERED: PRS5 PO (15:05)
[2016-12-15] MEDS ORDERED: KFL500 PO (15:05)
--- NOTE | 2016-12-15 15:06 | Discharge Instructions ---
Discharge Instructions Admission Reason for Admission: Acute Renal Failure; Hypernatremia Discharge Discharge Diagnosis / Problem: urinary retention Discharge Goals Goal(s): Prevent Disease Progression Activity Recommendations Activity Limitations: resume your previous activity . Instructions / Follow-Up Instructions / Follow-Up you have neurogenic bladder and will need indwelling catheter or cic q6 hr on discharge continue current medicine, 1. Pureed diet with honey-thick liquids 2. No straws; aspiration precautions - you need to follow up with your primary care physician in 2-4 days - take medication as instructed, never overdose or any misuse, or take with alcohol, because misuse of medicine may cause organ damage or , call your primary care physician if have questions of medications. Current Hospital Diet Patient's current hospital diet: Regular Diet, N/A Discharge Diet Recommended Diet: Regular Diet (also see above) Pending Studies Studies pending at discharge: no Medical Emergencies . Who to Call and When: Medical Emergencies: If at any time you feel your situation is an emergency, please call 911 immediately. . Non-Emergent Contact Non-Emergency issues call your: Primary Care Provider, Urologist . . "Provider Documentation" section prepared by Lj Austin. VTE Core Measure Inpt VTE Proph given/why not?: SCD's
--- NOTE | 2016-12-15 15:25 | Progress Note ---
Subjective Date of Service: Dec 15, 2016. Subjective Pt evaluation today including: physical exam, chart review, lab review, conversation w/ makeup sales consultant pt continues to be demented he will need CIC as outpt as not clear he will be able to void psa nl at 3.3 Problem List Medical Problems: (1) Acute renal failure Status: Acute (2) Dehydration Status: Acute (3) Dehydration Status: Acute (4) Noncompliance with medications Status: Acute (5) Urinary retention Status: Acute Objective Vital Signs Date Time Temp Pulse Resp B/P Pulse Ox O2 Delivery O2 Flow Rate FiO2 12/15/16 08:25 36.8 97 19 178/87 90 Room Air 12/14/16 23:45 37.3 101 18 147/92 97 Room Air 12/14/16 23:40 Room Air 12/14/16 19:25 87 141/82 12/14/16 15:30 Room Air 12/14/16 15:22 36.9 88 18 171/86 92 Room Air Laboratory Results Last 24 Hours Test 12/15/16 07:54 12/15/16 11:25 White Blood Count 10.74 K/uL Red Blood Count 4.16 M/uL Hemoglobin 13.1 g/dL Hematocrit 37.4 % Mean Corpuscular Volume 89.9 fL Mean Corpuscular Hemoglobin 31.5 pg Mean Corpuscular Hemoglobin Concent 35.0 g/dl Platelet Count 302 K/uL Mean Platelet Volume 10.4 fL Neutrophils (%) (Auto) 78.5 % Lymphocytes (%) (Auto) 11.5 % Monocytes (%) (Auto) 7.5 % Eosinophils (%) (Auto) 1.7 % Basophils (%) (Auto) 0.2 % Neutrophils # (Auto) 8.44 K/uL Lymphocytes # (Auto) 1.23 K/uL Monocytes # (Auto) 0.81 K/uL Eosinophils # (Auto) 0.18 K/uL Basophils # (Auto) 0.02 K/uL RDW Standard Deviation 41.1 fL RDW Coefficient of Variation 12.6 % Immature Granulocyte % (Auto) 0.6 % Immature Granulocyte # (Auto) 0.06 K/uL Prothrombin Time 11.3 SECONDS Prothromb Time International Ratio 1.1 Activated Partial Thromboplast Time 27.8 SECONDS Partial Thromboplastin Ratio 1.1 Sodium Level 142 mmol/L Potassium Level 3.3 mmol/L Chloride Level 108 mmol/L Carbon Dioxide Level 22 mmol/L Anion Gap 12.0 mmol/L Blood Urea Nitrogen 7 mg/dl Creatinine 1.20 mg/dl Est Creatinine Clear Calc Drug Dose 46.1 ml/min Estimated GFR () 72.1 Estimated GFR (Non- 62.2 BUN/Creatinine Ratio 6.0 Random Glucose 125 mg/dl Calcium Level 8.1 mg/dl Magnesium Level 1.9 mg/dl Total Bilirubin 1.0 mg/dl Direct Bilirubin 0.2 mg/dl Aspartate Amino Transf (AST/SGOT) 49 U/L Alanine Aminotransferase (ALT/SGPT) 35 U/L Alkaline Phosphatase 70 U/L Total Protein 6.7 gm/dl Albumin 2.8 gm/dl Vancomycin Level Trough 7.0 mcg/ml Assessment and Plan pt has normalized creatinine so renal failure clearly related to retention. He is unlikely to void in the short term given 3 liters in bladder. He will need indwelling catheter or cic on discharge and cic is better as he is confused and will likely pull catheter Continue finasteride Continued [facility] stay due to: inadequate po fluid intake, voiding difficulties, multiple IV medications needed Discharge planning: other (long-term)
--- NOTE | 2016-12-15 15:26 | Discharge Summary ---
Discharge Summary Admission Date: Dec 12, 2016 at 17:38 Discharge Date: Dec 15, 2016 Principal Diagnosis: neurogenic bladder Problems/Secondary Diagnoses: dementia swallowing dysfunction Procedures: no Consultations: gu Medication Reconciliation New Medications: Cephalexin Monohydrate (Cephalexin) 500 Mg Cap 500 MG PO BID for 7 Days, #14 CAP Finasteride (Finasteride) 5 Mg Tab 5 MG PO QAM for 30 Days, #30 TAB Continued Medications: Acetaminophen (Acetaminophen) 325 Mg Tab 650 MG PO BID for Pain Amlodipine (Norvasc) 10 Mg Tab 10 MG PO HS, TAB Aspirin (Aspirin Ec) 81 Mg Tab 81 MG PO DAILY B-Complex Vitamins (B Complex) 1 Cap Cap 1 TAB PO DAILY Donepezil Hydrochloride (Aricept) 10 Mg Tab 1 TAB PO HS for 30 Days, #30 TAB 5 Refills Memantine (Namenda) 10 Mg Tab 10 MG PO BID, TAB Nutritional Supplements (Boost) 1 Liq Liq 1 CAN PO TID Ranitidine (Zantac) 150 Mg Tab 1 TAB PO BID for 30 Days, #60 TAB 3 Refills Sertraline (Zoloft) 100 Mg Tab 1 TAB PO DAILY for 90 Days, #90 TAB 1 Refill Tamsulosin Hcl (Flomax) 0.4 Mg Cap 1 CAP PO DAILY for 30 Days, #30 CAP 5 Refills [Haloperidol 5MG/Ml] () 1 MG IM TID for Agitation INJECT 1MG IM THREE TIMES DAILY NEEDED AGGITATION Discontinued Medications: Sulfamethoxazole-Trimethoprim (Bactrim Ds 800MG/160MG) 1 Tab Tab 1 TAB PO BID, #6 TAB Discharge Exam confuse, sometimes combative, believe is in his baseline Review of Systems: Constitutional: + problem reported (limit b/c confuse, demented, but is the same as yesterday), No chills, No fever, No sweats, No weakness, No weight loss Physical Exam: General Appearance: + thin Eyes: PERRL ENT: normal ENT inspection Neck: supple Respiratory/Chest: normal breath sounds, no respiratory distress, + decreased breath sounds Cardiovascular: regular rate, rhythm, no edema, no gallop Abdomen / GI: normal bowel sounds, non tender, + pertinent finding (mckenna in place) Extremities: normal inspection, no calf tenderness Neurologic/Psychiatric: + disoriented, + pertinent finding (confused, ) Skin: normal color Hospital Course 66-year-old male admitted to hospital on 12/12/2016 from snf with Acute renal failure likely from post renal factor secondary to urinary retention and bladder outlet obstruction improving Acute renal failure likely from post renal factor secondary to urinary retention and bladder outlet obstruction improving His creatinine upon entry is 4.50, and approximately one week ago was 1.40., resolved urinary retention and bladder outlet obstruction likely from neurogenic bladder : resolved, however the neurogenic bladder possible now curable per , Continue improving, continue Mckenna, or CIC Urologist on the case, he called to snf, then can do Mckenna, or CIC I called to CM, she reported to me that snf can take care it, and I recs CIC q 6 hr, and more frequent if needs because pt's baseline dementia and may pull out mckenna which will cause severe injury. hypernatremia upon admission, resolving, and staff should encourage plenty oral input Possible speech swallowing dysfunction, request a speech valuation, diet recs see below Possible sepsis upon admission Patient was having mild leukocytosis at 11,000 white count, no fever, negative lactase, I don't believe patient has sepsis, for now we will continue IV antibiotic broad-spectrum coverage, follow-up C+S, so far no growth has been on broad-spectrum antibiotic coverage for now because patient's significantly improved will give oral abx for several day for tx of uti Hypertension--continue amlodipine 10 mg by mouth at bedtime, enteric-coated aspirin 81 mg by mouth daily. End-stage Alzheimer's dementia--continue donepezil 10 mg by mouth at bedtime and Namenda 10 mg by mouth twice a day. GERD--continue ranitidine 150 mg by mouth twice a day. Depression--continue sertraline present dose. Possible metabolic encephalopathy from acute kidney failure/ hypernatremia, sepsis, with Agitation: Seems a little bit better oral thrush, ordered Magic mouthwash, staff please take care of this because pt is confused/dementia, not able to do it by self PT OT and social media campaign manager, Dc instruction you have neurogenic bladder and will need indwelling catheter or cic q6 hr on discharge continue current medicine, 1. Pureed diet with honey-thick liquids 2. No straws; aspiration precautions - you need to follow up with your primary care physician in 2-4 days - take medication as instructed, never overdose or any misuse, or take with alcohol, because misuse of medicine may cause organ damage or , call your primary care physician if have questions of medications. Total Time Spent: Greater than 30 minutes This includes examination of the patient, discharge planning, medication reconciliation, and communication with other providers. Discharge Instructions Please refer to the electronic Patient Visit Report (Discharge Instructions) for additional information. Additional Copies To Chuck WRIGHT
[2016-12-15 16:31] VITALS: BP 178/87; PULSE 97; TEMP 36.8; O2SAT 90
[2016-12-15] MEDS ORDERED: DONEPEZIL HCL 10 MG TAB PO SCH (21:00)
[2016-12-15] MEDS ORDERED: AMLODIPINE BESYLATE 5 MG TAB PO SCH (21:00)
== END 2016-12-15 19:10 | DRG 698 ==
LOC: ENRESERVTM → ENRESERVDT → EDBD 13:10 → C.EDB 13:11 → C.MSN 17:38
PROVIDERS: ADMIT Hospitalist; ATTEND Hospitalist
PROC: 0T9B70Z Drainage of Bladder with Drainage Device, Via Natural or Artificial Opening (ICD-10-PCS; principal; 2016-12-12)
PROC: BT10YZZ Fluoroscopy of Bladder using Other Contrast (ICD-10-PCS; 2016-12-12)
DX: N31.9 Neuromuscular dysfunction of bladder, unspecified (principal); G93.41 Metabolic encephalopathy; N17.9 Acute kidney failure, unspecified; E87.0 Hyperosmolality and hypernatremia; F02.81 Dementia in other diseases classified elsewhere, unspecified severity, with behavioral disturbance; B37.0 Candidal stomatitis; N32.0 Bladder-neck obstruction; R33.8 Other retention of urine; G30.9 Alzheimer's disease, unspecified; D72.829 Elevated white blood cell count, unspecified; R13.10 Dysphagia, unspecified; I10 Essential (primary) hypertension; B19.20 Unspecified viral hepatitis C without hepatic coma; K21.9 Gastro-esophageal reflux disease without esophagitis; F32.9 Major depressive disorder, single episode, unspecified; F43.10 Post-traumatic stress disorder, unspecified; Z79.899 Other long term (current) drug therapy; Z79.82 Long term (current) use of aspirin; Z87.891 Personal history of nicotine dependence

== ENCOUNTER 2017-01-05 09:48 | Emergency (ER) | payer OTHER ==
[~2017-01-05 09:48] MED LIST changes: +HALOPERIDOL 5 MG/ML IM; +KFL500 PO; +PRS5 PO
[2017-01-05 09:54] VITALS: TEMP 36.5
[2017-01-05] MEDS ORDERED: HALO2TAB PO (10:26)
[2017-01-05] MEDS ORDERED: EMOLLOT TOP (10:26)
[2017-01-05] MEDS ORDERED: PRAMCRE2 PR (10:26)
--- NOTE | 2017-01-05 10:30 | EMERGENCY ROOM VISIT NOTE ---
History Report prepared by Olayinka: Katya Regan Under the Supervision of: Dr. Jose Alberto Minor M.D. First contact with patient: 10:07 Chief Complaint: HEMATURIA Stated Complaint: URINARY RETENTION/ BLOOD IN URINE Nursing Triage Summary: pt arrived via ALS from [facility] for eval for urinary retention and hematuria. Pt normally cath'd 2x a day. Cath'd yesterday at 1300 and got 600 cc's. No urine when cath'd last night, then attempt to cath today and blood. Pt has end stage dementia. Can be combative. History of Present Illness The patient is a 66 year old male who presents to the Emergency Room with complaints of persistent hematuria that began this morning. Per nursing notes the patient arrives via ALS From [facility]. They note that the patient has a history of urinary retention and the patient caths himself twice per day. Nursing notes state that the patient cathed himself at 1300 and had 600 cc of urine retained. The nursing staff notes that the patient attempted to cath himself last night but did not get anything out. They note that when the patient attempted to cath himself this morning, he only had blood. The history is limited secondary to end stage dementia. Source of History: nursing staff (notes) History Limited By: dementia Onset: today Position: other (global) Quality: other (hematuria) Timing: other (persistent) Review of Systems The history and history sheet is unobtainable secondary to his end stage dementia. Past Medical & Surgical Medical Problems: (1) GERD (gastroesophageal reflux disease) (2) Hepatitis C (3) Hypernatremia (4) Hypertension (5) PTSD (post-traumatic stress disorder) (6) Substance abuse Family History Patient reports no known family medical history. Social History Smoking Status: Unknown if Ever Smoked Housing Status: other Occupation Status: other Current/Historical Medications Scheduled Amlodipine (Norvasc), 10 MG PO HS Aspirin (Aspirin Ec), 81 MG PO DAILY B-Complex Vitamins (B Complex), 1 TAB PO DAILY Donepezil Hydrochloride (Aricept), 10 MG PO HS Emollient (A + D Personal Care Lotio), 1 APPLN TOP BID Memantine (Namenda), 10 MG PO BID Nutritional Supplements (Boost), 1 CAN PO TID Kkmcxznaj-Edeutbsrtwlgi-Llnfvk (Preparation H), 1 APPLN ID HS Ranitidine (Zantac), 150 MG PO BID Sertraline (Zoloft), 100 MG PO DAILY Tamsulosin Hcl (Flomax), 0.4 MG PO DAILY [Haloperidol 5MG/Ml], 1 MG IM TID Scheduled PRN Acetaminophen (Acetaminophen), 650 MG PO BID PRN for Pain Haloperidol (Haloperidol), 2 MG PO TID PRN for PRN Allergies Coded Allergies: No Known Allergies (Unverified , 12/12/16) Physical Exam Vital Signs Date Time Temp Pulse Resp B/P Pulse Ox O2 Delivery O2 Flow Rate FiO2 01/05/17 13:13 80 16 112/73 97 Room Air 01/05/17 11:34 72 16 116/63 99 Room Air 01/05/17 09:54 36.5 76 115/67 99 Room Air Physical Exam GENERAL: Patient intermittently screaming out. Patient does not appear to be oriented, but is alert. SKIN: No erythema, pallor, cyanosis or rash HEENT: Normal head, pupils equal, reactive to light and accommodation. Ears normal. Oral cavity and posterior pharynx appear normal. Neck: Without adenopathy, no neck vein distention. LUNGS: Clear to auscultation. No wheezes, no rales, no rhonchi. HEART: No murmurs. No gallops. No rubs ABDOMEN: Soft, nontender. No masses, no rebound, no hepatomegaly or splenomegaly. EXTREMITIES: No signs of trauma. No pedal or pretibial edema. No calf or thigh tenderness. NEUROLOGIC: Cranial nerves II-XII within normal limits. No gross motor sensory function deficits. Medical Decision & Procedures Laboratory Results 01/05/17 11:30 01/05/17 11:30 Test 01/05/17 10:20 01/05/17 11:30 Urine Color YELLOW Urine Appearance CLEAR (CLEAR) Urine pH 7.0 (4.5-7.5) Urine Specific [place] 1.015 (1.000-1.030) Urine Protein NEG (NEG) Urine Glucose (UA) NEG (NEG) Urine Ketones NEG (NEG) Urine Occult Blood 1+ (NEG) Urine Nitrite NEG (NEG) Urine Bilirubin NEG (NEG) Urine Urobilinogen NEG (NEG) Urine Leukocyte Esterase NEG (NEG) Urine WBC (Auto) 1-5 /hpf (0-5) Urine RBC (Auto) 10-30 /hpf (0-4) Urine Hyaline Casts (Auto) 0 /lpf (0-5) Urine Epithelial Cells (Auto) 5-10 /lpf (0-5) Urine Bacteria (Auto) NEG (NEG) Red Blood Count 4.29 M/uL (4.7-6.1) Mean Corpuscular Volume 90.7 fL (80-100) Mean Corpuscular Hemoglobin 31.0 pg (25-34) Mean Corpuscular Hemoglobin Concent 34.2 g/dl (32-36) RDW Standard Deviation 42.4 fL (36.4-46.3) RDW Coefficient of Variation 12.9 % (11.5-14.5) Mean Platelet Volume 10.5 fL (7.4-10.4) Anion Gap 5.0 mmol/L (3-11) Estimated GFR () 89.9 Estimated GFR (Non- 77.5 BUN/Creatinine Ratio 18.6 (10-20) Calcium Level 8.6 mg/dl (8.5-10.1) Laboratory results as stated above per my review. ED Course 1008: Past medical records reviewed. The patient was evaluated in room B6. A complete history and physical examination was performed. 1014: Per nursing staff the patient retained 810 cc of urine according to the bladder scan. 1214: I talked with the nursing home guards regarding the patient. 1237: I discussed the patients case with Dr. Smart from the [facility]. He states that he feels that it is okay to send the patient back with a catheter in place. Medical Decision Nurses notes reviewed. Medical history sheet reviewed. Differential diagnosis includes but is not limited to: urinary retention, urinary tract infection. Multiple labs and urinalysis were evaluated. The patient had greater than 800 cc of urine in his bladder. The patient does not appear to have a urinary tract infection. The patient will need follow-up by urology. In the meantime, I discussed care with the physician at the nursing home who suggested the patient can return there with a catheter in place. I do not believe the patient requires antibiotic at this time. Consults Time Called: 1216 Consulting Physician: Dr. Smart, [facility] Returned Call: [phone] I discussed the patients case with Dr. Smart from the [facility]. He states that he feels that it is okay to send the patient back with a catheter in place. Impression Primary Impression: Urinary retention Additional Impression: Hematuria Scribe Attestation The scribe's documentation has been prepared under my direction and personally reviewed by me in its entirety. I confirm that the note above accurately reflects all work, treatment, procedures, and medical decision making performed by me. Departure Information Dispostion Home / Self-Care Referrals Chuck WRIGHT (PCP) Forms HOME CARE DOCUMENTATION FORM, IMPORTANT VISIT INFORMATION Patient Instructions My [facility] Additional Instructions Leave the catheter in place until seen by urology. Continue all of your current medications as prescribed. Problem Qualifiers
[2017-01-05 10:51] LABS: URINE APPEARANCE CLEAR (CLEAR); URINE BILIRUBIN NEG (NEG); URINE COLOR YELLOW; URINE NITRITE NEG (NEG); URINE SPECIFIC GRAVITY 1.015 (1.000-1.030); UROBILINOGEN NEG (NEG); ZZURINE CULT IF INDIC CATH NO
[2017-01-05 11:02] LABS: MANUAL MICROSCOPIC REQUIRED? NO; REVIEW REQ? NO
[2017-01-05 11:42] LABS: HEMATOCRIT 38.9 % (42-52); MEAN CELL VOLUME 90.7 fL (80-100); MEAN CORPUSCULAR HGB CONC 34.2 g/dl (32-36); MEAN PLATELET VOLUME 10.5 fL (7.4-10.4); PLATELET COUNT 188 K/uL (130-400); RED BLOOD COUNT 4.29 M/uL (4.7-6.1)
[2017-01-05 12:08] LABS: BLOOD UREA NITROGEN 19 mg/dl (7-18); BUN/CREATININE RATIO 18.6 (10-20); CALCIUM 8.6 mg/dl (8.5-10.1); CARBON DIOXIDE 32 mmol/L (21-32); CHLORIDE 106 mmol/L (98-107); GLUCOSE 118 mg/dl (70-99); POTASSIUM 3.9 mmol/L (3.5-5.1); SODIUM 143 mmol/L (136-145)
[2017-01-05 13:13] VITALS: BP 112/73; PULSE 80; O2SAT 97
== END 2017-01-05 13:17 | disposition home or self-care (01) ==
LOC: EDBD 09:48 → C.EDB 09:54
DX: R33.9 Retention of urine, unspecified (principal); R31.9 Hematuria, unspecified; F03.90 Unspecified dementia, unspecified severity, without behavioral disturbance, psychotic disturbance, mood disturbance, and anxiety; K21.9 Gastro-esophageal reflux disease without esophagitis; B19.20 Unspecified viral hepatitis C without hepatic coma; E87.0 Hyperosmolality and hypernatremia; I10 Essential (primary) hypertension; Z79.82 Long term (current) use of aspirin

== ENCOUNTER 2019-09-28 08:47 | Inpatient (IN) ==
[2019-09-28] MEDS ORDERED: LORazepam 2 MG/4 ML VIAL ONE (08:53)
[2019-09-28] MEDS ORDERED: LORazepam 1 MG/2 ML VIAL IV STA (08:54)
--- NOTE | 2019-09-28 08:59 | Emergency Department Note ---
Entered by Leatha Urbano acting as a scribe for Cecilio Mason MD History of Present Illness General Chief complaint: Seizure Time Seen by Provider: 09/28/19 08:49 Source: patient History of Present Illness Onset (ago): hour(s) (this morning) Location: head Pain Consistency: + other (episode) Quality: + other (seizure) Associated symptoms: + other (incontinence, bit tongue, agitation) The patient is a 68 year old male that is presenting to the Emergency Room with complaints of an episode of an unwitnessed seizure that occurred this morning. The patient has Alzheimers disease and is unable to hold a conversation at baseline. EMS provided the history. EMS states that the patient had a seizure that was several minutes long and that the patient bit his tongue during the ep isode. EMS notes that the patient has a history of being agitated on occasion. The patients [facility] guards report that the patient is compliant on good days and agitated on other days. The guards note that the patient is unable to care for himself and wears a diaper at baseline. EMS states that the patient was given 2 doses of Ativan prior to arrival without significant relief in his agitation. HPI and ROS are limited secondary to the patient's Alzheimer's. Home Medications Home Medications Medication Instructions Recorded Confirmed Type amlodipine 10 mg PO HS 09/28/19 09/28/19 History finasteride 5 mg PO DAILY 09/28/19 09/28/19 History omeprazole 20 mg PO DAILY 09/28/19 09/28/19 History paroxetine HCl 20 mg PO DAILY 09/28/19 09/28/19 History tamsulosin 0.4 mg PO DAILY 09/28/19 09/28/19 History vitamin B complex-folic acid [B 1 tab PO DAILY 09/28/19 09/28/19 History Complex 1 (with folic acid)] Allergies Allergy/AdvReac Type Severity Reaction Status Date / Time No Known Allergies Allergy Unverified 09/28/19 09:34 Past Med/Surg History Medical History Alzheimer disease GERD (gastroesophageal reflux disease) (Chronic) Hepatitis C (Chronic) Hypernatremia Hypertension (Chronic) PTSD (post-traumatic stress disorder) (Chronic) Family History Other Family history non-contributory Social History Preferred Language: Slovenian Communication Ability: Impaired Optical Manufacturing Technician Required: No Beliefs That Will Affect Care: None Current Living Situation: Other Current Living Situation Comment: [facility] current occupational status: other current occupation: Prisoner Smoking Status: Former smoker Hx Alcohol Use: No Review of Systems HPI and ROS are limited secondary to the patient's history of Alzheimer's. Physical Exam Vital Signs Vital Signs - 24 hr 09/28/19 08:59 09/28/19 10:01 09/28/19 10:25 Temperature 37.3 C Temperature Source Oral Pulse Rate 92 H Pulse Rate [Left] 89 92 H Respiratory Rate 22 24 18 Respiratory Effort / Characteristics Spontaneous Non-Labored Spontaneous Respiratory Depth Normal Blood Pressure 142/74 H Blood Pressure [Left Arm] 179/77 H Blood Pressure Mean 96 Blood Pressure Mean [Left Arm] 111 Blood Pressure Position Lying Blood Pressure Position [Left Arm] Lying Lying Pulse Oximetry 100 98 95 Oxygen Delivery Method Room Air Room Air Room Air Sepsis Action Taken by Nursing No Action Required General: Chronically-ill appearing and agitated older male in no acute distress. HEENT: Normal cephalic atraumatic. Pupils are equal round and reactive to light. Extraocular movements are intact. Oropharynx is pink with moist mucous membranes. No swelling of the mouth lips or tongue. Neck: Supple with a midline trachea. No meningeal signs or stiffness, no JVD or bruits. No Stridor. Chest: Clear to auscultation bilaterally. No wheezes or rhonchi. No increased work of breathing. Heart: regular rate and rhythm. Abdomen: Soft nontender, nondistended without rebound guarding or rigidity. Wearing diaper for incontinence, which is baseline. Extremities: No cyanosis clubbing or edema. No calf tenderness or asymmetry Spine/Back. Non tender to palpation. No CVA tenderness Skin: Good turgor without rashes. Neurologic exam: Thrashing in bed moving all four extremities. Yelling. No seizures at present. Course Course 0850:The patient was evaluated in room 0850. A complete history and physical examination was performed. 0910: The patient continues to be agitated. An additional dose of Ativan was ordered, and the patient was placed in restraints. 1037: I reevaluated the patient at this time. He is not seizing currently and is much less combative. 1041: I discussed the patients case with Dr. Ward, [facility], who will evaluate the patient for further management and care. Administered Medications Sodium Chloride (Nss 1000ml) 1,000 mls @ 80 mls/hr IV .[id number] FABIAN Stop: 10/28/19 12:59 Last Admin: 09/28/19 14:25 Dose: 80 mls/hr Documented by: [id number] Discontinued Medications Lorazepam (Ativan) 1 mg in 2 mls @ 2 mls/min IV NOW STA Stop: 09/28/19 08:55 Last Admin: 09/28/19 09:57 Dose: Not Given Documented by: [id number] Levetiracetam 1,000 mg/ (Dextrose) 110 mls @ 440 mls/hr IV NOW STA Stop: 09/28/19 11:20 Last Infusion: 09/28/19 12:11 Dose: 0 mls/hr Documented by: [id number] Admin: 09/28/19 11:39 Dose: 440 mls/hr Documented by: [id number] Lorazepam (Ativan) Confirm Administered Dose 2 mg .ROUTE .STK-MED ONE Stop: 09/28/19 08:54 Last Increment: 09/28/19 09:09 Dose: 1 mg Documented by: [id number] Increment: 09/28/19 08:56 Dose: 1 mg Documented by: [id number] Critical Care Time Critical Care Time: Yes Total Critical Care Time: 35 I have personally spent greater than 35 minutes of critical care time in the direct management of this patient. This includes bedside care, interpretation of diagnostic studies, and testing, discussion with consultants, patient, and family members, and other required patient management activities. This 35 minutes is in excess of all separately billable procedures. Medical Decision Making Differential Diagnosis Differential diagnosis: Etiologies such as seizure, head injury, intracranial process, electrolyte or metabolic abnormalities, infection as well as others were entertained. Medical Records Attestation: I reviewed the patient's medical records. Home Medications Current Medication List: was personally reviewed by me Laboratory Data Attestation: I reviewed the patient's lab results. Result diagrams: 09/28/19 09:39 09/28/19 09:39 Lab Results 09/28/19 09/28/19 09/28/19 Range/Units 09:39 09:39 09:39 WBC 12.28 H (4.8-10.8) K/uL RBC 4.94 (4.7-6.1) M/uL Hgb 15.1 (14.0-18.0) g/dL POC Hgb (14.0-18.0) g/dl Hct 43.8 (42-52) % POC Hct (42-52) % MCV 88.7 (80-100) fL MCH 30.6 (25-34) pg MCHC 34.5 (32-36) g/dL RDW Std Deviation 42.9 (36.4-46.3) fL RDW Coeff of Myrtle 13.2 (11.5-14.5) % Plt Count 200 (130-400) K/uL MPV 11.2 H (7.4-10.4) fL Immature Gran % (Auto) 1.2 % Neut % (Auto) 88.8 % Lymph % (Auto) 6.1 % Fillmore % (Auto) 3.6 % Eos % (Auto) 0.2 % Baso % (Auto) 0.1 % Immature Gran # (Auto) 0.15 H (0.00-0.02) K/uL Neut # (Auto) 10.90 H (1.4-6.5) K/uL Lymph # (Auto) 0.75 L (1.2-3.4) K/uL Fillmore # (Auto) 0.44 (0.11-0.59) K/uL Eos # (Auto) 0.03 (0-0.5) K/uL Baso # (Auto) 0.01 (0-0.2) K/uL POC Sodium (135-144) mEq/L Sodium 138 (136-145) mmol/L POC Potassium (3.3-5.0) mEq/L Potassium 3.6 (3.5-5.1) mmol/L POC Chloride (101-112) mEq/L Chloride 107 (98-107) mmol/L Carbon Dioxide 25 (21-32) mmol/L POC Total CO2 (24-31) mEq/l Anion Gap 6.0 (3-11) POC Anion Gap (16-25) mmol/L POC BUN (7-18) mg/dl BUN 29 H (7-18) mg/dl Creatinine 1.52 H (0.6-1.4) mg/dl POC Creatinine (0.6-1.3) mg/dl Est Cr Clr Drug Dosing Not Reportable Est GFR ( Amer) 53.4 Est GFR (Non-Af Amer) 46.1 BUN/Creatinine Ratio 19.2 (10-20) Glucose 152 H (70-99) mg/dl POC Glucose 142 H (70-99) POC Glucose (other) (70-99) mg/dl Calcium 9.4 (8.5-10.1) mg/dl POC Ioniz Calcium Laureano (1.12-1.32) mmol/l Magnesium 2.0 (1.8-2.4) mg/dl Total Bilirubin 1.1 H (0.2-1) mg/dl AST 50 H (15-37) U/L ALT 47 (12-78) U/L Alkaline Phosphatase 130 H (45-117) U/L Troponin I < 0.015 (0-0.045) ng/ml NT-Pro-B Natriuret Pep (0-900) pg/ml Total Protein 8.2 (6.4-8.2) gm/dl Albumin 3.9 (3.4-5.0) gm/dl Globulin 4.3 H (2.5-4.0) gm/dl Albumin/Globulin Ratio 0.9 (0.9-2) Procalcitonin (0-0.5) ng/ml TSH (0.300-4.500) uIu/ml 09/28/19 09/28/19 09/28/19 Range/Units 09:39 09:39 09:40 WBC (4.8-10.8) K/uL RBC (4.7-6.1) M/uL Hgb (14.0-18.0) g/dL POC Hgb 15.3 (14.0-18.0) g/dl Hct (42-52) % POC Hct 45 (42-52) % MCV (80-100) fL MCH (25-34) pg MCHC (32-36) g/dL RDW Std Deviation (36.4-46.3) fL RDW Coeff of Myrtle (11.5-14.5) % Plt Count (130-400) K/uL MPV (7.4-10.4) fL Immature Gran % (Auto) % Neut % (Auto) % Lymph % (Auto) % Fillmore % (Auto) % Eos % (Auto) % Baso % (Auto) % Immature Gran # (Auto) (0.00-0.02) K/uL Neut # (Auto) (1.4-6.5) K/uL Lymph # (Auto) (1.2-3.4) K/uL Fillmore # (Auto) (0.11-0.59) K/uL Eos # (Auto) (0-0.5) K/uL Baso # (Auto) (0-0.2) K/uL POC Sodium 140 (135-144) mEq/L Sodium (136-145) mmol/L POC Potassium 3.7 (3.3-5.0) mEq/L Potassium (3.5-5.1) mmol/L POC Chloride 104 (101-112) mEq/L Chloride (98-107) mmol/L Carbon Dioxide (21-32) mmol/L POC Total CO2 24 (24-31) mEq/l Anion Gap (3-11) POC Anion Gap 17.0 (16-25) mmol/L POC BUN 31 H (7-18) mg/dl BUN (7-18) mg/dl Creatinine (0.6-1.4) mg/dl POC Creatinine 1.5 H (0.6-1.3) mg/dl Est Cr Clr Drug Dosing Est GFR ( Amer) Est GFR (Non-Af Amer) BUN/Creatinine Ratio (10-20) Glucose (70-99) mg/dl POC Glucose (70-99) POC Glucose (other) 156 H (70-99) mg/dl Calcium (8.5-10.1) mg/dl POC Ioniz Calcium Laureano 1.10 L (1.12-1.32) mmol/l Magnesium (1.8-2.4) mg/dl Total Bilirubin (0.2-1) mg/dl AST (15-37) U/L ALT (12-78) U/L Alkaline Phosphatase (45-117) U/L Troponin I (0-0.045) ng/ml NT-Pro-B Natriuret Pep 107 (0-900) pg/ml Total Protein (6.4-8.2) gm/dl Albumin (3.4-5.0) gm/dl Globulin (2.5-4.0) gm/dl Albumin/Globulin Ratio (0.9-2) Procalcitonin < 0.05 (0-0.5) ng/ml TSH 5.210 H (0.300-4.500) uIu/ml Imaging Data Radiologist's Impression: Radiology results as stated below per my review and the radiologist's interpretation: CT head/brain wo con CLINICAL HISTORY: seizure COMPARISON STUDY: 12/04/2016 TECHNIQUE: Axial CT of the brain is performed from the vertex to the skull base. IV contrast was not administered for this examination. A dose lowering technique was utilized adhering to the principles of ALARA. CT DOSE: 614.27 mGy.cm FINDINGS: No intra or extra-axial mass lesions are visualized. There is no CT evidence of acute cortical infarction. There is no evidence of midline shift. There is no acute hemorrhage. No calvarial fractures are visualized. There are patchy white matter hypodensities likely on a small vessel basis. There is slight progression in the mild ventricular dilatation. There is left maxillary sinus mucosal thickening. There is no evidence of acute sinusitis. IMPRESSION: 1. Mild ventricular dilatation 2. No acute intracranial findings Electronically signed by: Lev Auguste M.D. 09/28/2019 10:26 AM ECG Data Attestation: I personally reviewed and interpreted this ECG as follows: Indication: + altered mental status Rate (beats per minute): 92 Rhythm: + normal sinus ECG ST segments: no ST depression and no ST elevation ECG Findings: + Other (poor baseline); no PACs and no PVCs Comparison ECG Date: no prior available Blood Pressure Blood Pressure Findings: Elevated blood pressure Blood Pressure Disposition: Referred to patients primary care provider MDM Narrative This patient comes in as described above. He has baseline dementia and is currently an inmate. According to the guards, he is agitated and yelling and confused on a typical day. He is typically incontinent as well. He had sei zure-like spell today that lasted about a minute. He has been agitated since then he did get Ativan on route. Due to his agitation, he I did order additional 1 milligram of Ativan IV as well as some soft restraints. Extensive work-up was done including blood testing and head CT. Initially evaluated he was not having any seizure activity but seizure precautions were applied. He did require another milligram IV of Ativan for agitation. He has no acute electrolyte or metabolic abnormalities he has nothing suggest infection. CAT scan of his head is unremarkable. EKG does not suggest acute coronary syndrome or arrhythmia. Is very difficult to evaluate due to his baseline dementia and I do think he should be admitted/observe given this was also new onset seizure. I have consulted Dr. Mojica to see the patient in the ER for these measures. Impression & Plan Seizure, Dementia, AMS (altered mental status), Agitation Discharge Plan Visit Data *Final* Discharge Date/Time: 09/28/19 12:29 Chief Complaint: Seizure ED Provider: Cecilio Mason Discharge Problem: Seizure, Dementia, AMS (altered mental status), Agitation Patient Disposition: Admitted As Inpatient Discharge Instructions Interventions: ED Discharge Assessment Last Done: 09/28/19 12:29 Discharge Problem: Dementia Qualifiers: Dementia type: unspecified type Dementia behavioral disturbance: with behavioral disturbance Qualified Code(s): F03.91 - Unspecified dementia with behavioral disturbance AMS (altered mental status) Qualifiers: Altered mental status type: unspecified Qualified Code(s): R41.82 - Altered mental status, unspecified The scribe's documentation has been prepared under my direction and personally reviewed by me in its entirety. I confirm that the note above accurately reflects all work, treatment, procedures, and medical decision making performed by me.
[2019-09-28 09:49] LABS: Basophils # (auto) 0.01 K/uL (0-0.2); Basophils % (auto) 0.1 %; Eosinophils # (auto) 0.03 K/uL (0-0.5); Eosinophils % (auto) 0.2 %; Hematocrit (blood only) 43.8 % (42-52); Hemoglobin 15.1 g/dL (14.0-18.0); Immature Granulocytes # (auto) 0.15 K/uL (0.00-0.02); Immature Granulocytes % (auto) 1.2 %; Lymphocytes # (auto) 0.75 K/uL (1.2-3.4); Lymphocytes % (auto) 6.1 %; Mean Corpuscular Hemoglobin 30.6 pg (25-34); Mean Corpuscular Hgb Conc 34.5 g/dL (32-36); Mean Corpuscular Volume 88.7 fL (80-100); Mean Platelet Volume 11.2 fL (7.4-10.4); Monocytes # (auto) 0.44 K/uL (0.11-0.59); Monocytes % (auto) 3.6 %; Neutrophils % (auto) 88.8 %; Platelet Count 200 K/uL (130-400); RDW Coefficient of Variation 13.2 % (11.5-14.5); RDW Standard Deviation 42.9 fL (36.4-46.3); Red Blood Count 4.94 M/uL (4.7-6.1); White Blood Count 12.28 K/uL (4.8-10.8)
[2019-09-28 09:56] LABS: iSTAT Creatinine 1.5 mg/dl (0.6-1.3); iSTAT Hemoglobin 15.3 g/dl (14.0-18.0); iSTAT Ionized Calcium 1.1 mmol/l (1.12-1.32); iSTAT Potassium 3.7 mEq/L (3.3-5.0)
[2019-09-28 10:05] LABS: Alanine Aminotransferase 47 U/L (12-78); Albumin Level 3.9 gm/dl (3.4-5.0); Aspartate Aminotransferase 50 U/L (15-37); BUN Creatinine Ratio 19.2 (10-20); Blood Urea Nitrogen 29 mg/dl (7-18); Calcium 9.4 mg/dl (8.5-10.1); Carbon Dioxide 25 mmol/L (21-32); Chloride 107 mmol/L (98-107); Est GFR (African American) 53.4; Est GFR (Non-African American) 46.1; Glucose 152 mg/dl (70-99); Potassium 3.6 mmol/L (3.5-5.1); Sodium 138 mmol/L (136-145)
[2019-09-28 10:10] LABS: Albumin Globulin Ratio 0.9 (0.9-2); Alkaline Phosphatase 130 U/L (45-117); Bilirubin,Total 1.1 mg/dl (0.2-1); Globulin 4.3 gm/dl (2.5-4.0); Total Protein 8.2 gm/dl (6.4-8.2); Troponin I < 0.015 ng/ml (0-0.045)
--- NOTE | 2019-09-28 10:27 | CT Scan Report ---
CT head/brain wo con CLINICAL HISTORY: seizure COMPARISON STUDY: 12/04/2016 TECHNIQUE: Axial CT of the brain is performed from the vertex to the skull base. IV contrast was not administered for this examination. A dose lowering technique was utilized adhering to the principles of ALARA. CT DOSE: 614.27 mGy.cm FINDINGS: No intra or extra-axial mass lesions are visualized. There is no CT evidence of acute cortical infarc tion. There is no evidence of midline shift. There is no acute hemorrhage. No calvarial fractures ar e visualized. There are patchy white matter hypodensities likely on a small vessel basis. There is slight progression in the mild ventricular dilatation. There is left maxillary sinus mucosal thickening. There is no evidence of acute sinusitis. IMPRESSION: 1. Mild ventricular dilatation 2. No acute intracranial findings Electronically signed by: Lev Auguste M.D. 09/28/2019 10:26 AM
--- NOTE | 2019-09-28 11:41 | History & Physical Report ---
Date of Service September 28, 2019 Assessment & Plan (1) Status epilepticus: Admits to PCU on telemetry. Vital signs every 4 hours Seizure precautions per protocol Neurochecks every 4 hours Keppra 1g -loading dose given in the emergency room, continue 500 mg p.o. or (IV inpatient if patient not able to swallow) twice daily and titrate up as necessary to stop the seizures. Patient received 4 mg of Ativan in the emergency room but that did not help much. Continue 1 mg of Ativan every 4 hours for agitation and seizures. Speech consult for swallowing issues. Unable to obtain further x-rays because patient not calm moving in the bed all the time. Will attempt chest x-rays and other x-rays later on when patient settles down.. Neuro consult pending. Labs-checking for B12, thiamine, BNP, procalcitonin, TSH. Patient is a one-to-one, combative, placed nonviolent restraints to prevent hurting himself. DVT prophylaxis; SCDs and teds Patient is for now full code, guard said that [facility] and [facility] are calling the [facility] about his CODE STATUS. Present on Admission?: Yes (2) Alzheimer disease: As above Present on Admission?: Yes (3) Hypertension: Continue home medication: Amlodipine 10 mg p.o. nightly Present on Admission?: Yes (4) GERD (gastroesophageal reflux disease): Stable continue omeprazole 20 mg p.o. daily. Present on Admission?: Yes (5) Hepatitis C: Will check hepatitis load. Present on Admission?: Yes (6) PTSD (post-traumatic stress disorder): Continue home medicine paroxetine 20 mg p.o. daily, vitamin B complex folic acid 1 tablet p.o. daily. Present on Admission?: Yes (7) Acute kidney failure: Avoid nephrotoxic agents. It is not clear if this is acute or chronic because we do not have any other documentation to compare. Continue monitoring daily creatinine and GFR. Started gentle IV fluid hydration with normal saline. Present on Admission?: Yes (8) Discharge planning issues: Expectant stay more than 2 nights. Discharge to informatory present when medically stable Present on Admission?: Yes History of Present Illness Chief Complaint: Status epilepticus Primary Care Provider: ADRIANA Chuck Patient is a 68 years old inmate with past medical history of severe Alzheimer dementia, hepatitis C, posttraumatic stress disorder, hypertension who [facility] for episode of the seizure and patient continued to seize while he was in the emergency room. Patient was given 4 mg of Ativan by the ER physician but that did not help to stop his seizures. 1 g of Keppra is given. Patient is unable to give any history due to ongoing status epilepticus. Labs are reviewed: WBC is 12.28, hemoglobin 15.1, hematocrit 43.8, platelets 200, sodium 138, potassium 3.6, chloride 107, anion gap 6, BUN 29, creatinine 1.52, GFR 46.1, magnesium 2, bilirubin 1.1, AST 50, ALT 47, alkaline phosphatase 130, troponin [address] scan: Shows mild ventricular dilatation, no acute intracranial finding, no acute cortical infarction. There is no evidence of midline shift. Decision was made to admit patient to PCU on telemetry for status epilepticus and further management and treatment of Alzheimer's dementia, renal failure or other comorbidities this patient may have. Allergies Allergy/AdvReac Type Severity Reaction Status Date / Time No Known Allergies Allergy Unverified 09/28/19 09:34 Home Medications Home Medications Medication Instructions Recorded Confirmed Type amlodipine 10 mg PO HS 09/28/19 09/28/19 History finasteride 5 mg PO DAILY 09/28/19 09/28/19 History omeprazole 20 mg PO DAILY 09/28/19 09/28/19 History paroxetine HCl 20 mg PO DAILY 09/28/19 09/28/19 History tamsulosin 0.4 mg PO DAILY 09/28/19 09/28/19 History vitamin B complex-folic acid [B 1 tab PO DAILY 09/28/19 09/28/19 History Complex 1 (with folic acid)] Past Med/Surg History Medical History Alzheimer disease GERD (gastroesophageal reflux disease) (Chronic) Hepatitis C (Chronic) Hypernatremia Hypertension (Chronic) PTSD (post-traumatic stress disorder) (Chronic) Family History Other Family history non-contributory Social History Preferred Language: Wallisian Current Living Situation: Other Current Living Situation Comment: Incarcerated current occupational status: other current occupation: Prisoner Smoking Status: Unknown if ever smoked Review of Systems Review of Systems: Unobtainable due to mental health condition Physical Exam Constitutional: WD/WN, vitals as above well developed and + cachectic Eyes: + anicteric sclerae ENMT: external ear and nose normal, oropharynx normal Neck: trachea midline, no thyromegaly Respiratory: normal respiratory effort Cardiovascular: Rate/Rhythm: + tachycardic Heart Sounds: normal S1 and normal S2 Gastrointestinal (Abdomen): normal bowel sounds, soft, nontender, no hepatosplenomegaly Musculoskeletal: no cyanosis or clubbing, extremities motor strength 5/5 Skin: no rashes, warm and dry Neurologic: Patient is currently status epilepticus. Difficult to complete the neurological exam. Patient unable to follow the commands and seizing. Psychiatric: Unable to examine, patient status epilepticus. Lymphatic: no cervical or axillary lymphadenopathy Results & Data Vital Signs (Past 12 Hours) Vital Signs Temp Pulse Pulse Resp BP BP Pulse Ox 09/28/19 10:25 92 H 18 179/77 H 95 09/28/19 10:01 37.3 C 89 24 98 09/28/19 08:59 92 H 22 142/74 H 100 Code Status & VTE Plan Code Status Full code VTE Prophylaxis Plan VTE Prophylaxis will be ordered: Yes PG Care Time/CCT Total # of Minutes Spent Total Time Spent with Patient: Total time spent is greater than 50% in coordination of care (as documented) at patient's floor/unit and/or counseling patient:
[2019-09-28 12:35] LABS: Thyroid Stimulating Hormone 5.21 uIu/ml (0.300-4.500)
[2019-09-28] MEDS ORDERED: ALUMINUM/MAGNESIUM SUSP 30 ML UDC PO PRN (13:00)
[2019-09-28] MEDS ORDERED: ACETAMINOPHEN 325 MG TAB PO PRN (13:00)
[2019-09-28] MEDS ORDERED: POLYETHYLENE (MIRALAX) 17 GM PACK PO PRN (13:00)
[2019-09-28] MEDS ORDERED: ONDANSETRON INJ 2 MG/ML 2 ML VIAL IV PRN (13:00)
[2019-09-28] MEDS ORDERED: MAGNESIUM HYDROXIDE SUSP 30 ML UDC PO PRN (13:00)
--- NOTE | 2019-09-28 13:08 | Neurology Consultation ---
Date of Consultation September 28, 2019 Assessment & Plan (1) Seizure-like activity: Keo Wyatt is a 68-year-old male with past medical history of PTSD, hypertension, hep C, GERD and dementia who presents to [facility] from presented with seizure-like event. #Seizure-like activity: Patients with dementia are at increased risk of seizures due to bad brain substrate compared to the general population. No clear electrolyte abnormalities that would suggest that this was a provoked event. No hemorrhage or clear stroke on CT head either. Status post 1 g Keppra load and 4 mg of Ativan in the ED on 09/28/2019. Would not continue Keppra given baseline agitation and history of PTSD. Discussed possibly starting Vimpat versus Trileptal versus Dilantin, however there is no p.o. access at this time so opted to give Dilantin as most cost effective and IV access option. -When patient less agitated, would recommend obtaining MRI brain with/without contrast to rule out any structural lesion that could be a trigger for seizures (using epilepsy protocol) routine EEG (if he continues to have events despite Keppra and Dilantin load, would attempt to obtain EEG today) We will plan to load with Dilantin for estimated weight of 65 kg (1300 mg load) -Please check free and total Dilantin levels 2 to 3 hours after completion of Dilantin load (goal free level should be 1.5-2, total level should be between 10 and 20 mg/L) -Please check a.m. free and total Dilantin levels daily while patient is inpatient AEDs: Continue Dilantin 150 mg twice daily (would start maintenance dose 8 to 12 hours after completion of loading dose) and titrate to above goal levels - Will need to have outpatient neurology follow-up in the next 2 to 4 weeks after discharge -Would also complete infectious work-up with UA and chest x-ray to rule out any other triggers that could have potentially lowered his seizure threshold. Please also obtain a UDS Thank you for this interesting consult. Please call or text with any questions. Present on Admission?: Yes (2) Dementia: Present on Admission?: Yes (3) SHAHANA (acute kidney injury): Present on Admission?: Yes History of Present Illness History of Present Illness Keo Wyatt is a 68-year-old male with past medical history of PTSD, hypertension, hep C, GERD and dementia who presents to [facility] presented with seizure-like event. Per report, had generalized shaking that lasted about 1 minute associated with tongue biting and unclear loss of bladder and he is incontinent at baseline. He is reportedly agitated, yelling, confused and incontinent at baseline, however today he was much more agitated since his event. He got Ativan 1 mg in route, as well as 4 more milligrams of Ativan in the ED mainly for agitation. Admitting team also gave him 1 g Keppra load for possible ongoing seizure-like activity with some improvement of his tremulousness. Unable to obtain any history from patient himself. [facility] guards reports that he often will sit quietly hiding under a blanket versus being agitated and screaming, however this is much more agitated than he is ever been in the past. Labs in the ED were notable for WBC 12.28, hemoglobin 15.1, platelets 200, sodium 138, anion gap of 6, BUN 29, creatinine 1.52, glucose 152, normal calcium with mildly low ionized calcium 1.1, mildly elevated AST of 50 with normal ALT. Negative troponin and procalcitonin. TSH mildly elevated at 5.21. CT head shows generalized atrophy with ex vacuo dilation but no hemorrhage or clear hypodensity per my read. Upon speaking with the admitting team, they were concern for further seizure- like events in the ED and gave him further Ativan 1 g Keppra load. Neurology consulted to determine best AED going forward. Allergies Allergy/AdvReac Type Severity Reaction Status Date / Time No Known Allergies Allergy Unverified 09/28/19 09:34 Home Medications Home Medications Medication Instructions Recorded Confirmed Type amlodipine 10 mg PO HS 09/28/19 09/28/19 History finasteride 5 mg PO DAILY 09/28/19 09/28/19 History omeprazole 20 mg PO DAILY 09/28/19 09/28/19 History paroxetine HCl 20 mg PO DAILY 09/28/19 09/28/19 History tamsulosin 0.4 mg PO DAILY 09/28/19 09/28/19 History vitamin B complex-folic acid [B 1 tab PO DAILY 09/28/19 09/28/19 History Complex 1 (with folic acid)] Patient History Medical History Alzheimer disease GERD (gastroesophageal reflux disease) (Chronic) Hepatitis C (Chronic) Hypernatremia Hypertension (Chronic) PTSD (post-traumatic stress disorder) (Chronic) Family History Other Family history non-contributory Social History Preferred Language: Citizen Of [place] Communication Ability: Impaired Blockmason Required: No Beliefs That Will Affect Care: None Current Living Situation: Other Current Living Situation Comment: [facility] current occupational status: other current occupation: Prisoner Smoking Status: Former smoker Hx Alcohol Use: No Review of Systems Review of Systems: Unobtainable due to cognitive status Physical Exam Physical Exam: General Exam: GEN: Agitated, writhing in bed screaming out. CV: RRR on monitor, unable to assess peripheral edema given agitation PULM: Nonlabored respirations on room air. Neuro Exam: MS: Awake and Alert. Does not answer orientation questions. Does not follow any commands. Does not repeat or name. Unable to assess for neglect or baseline cognitive status. CN: Unable to assess as patient willing to participate in exam. He would not open his eyes and does not follow commands. MOTOR: Moving all extremities spontaneously antigravity without drift REFLEXES: Unable to assess secondary to mental status and severe agitation as he just keeps kicking SENSORY: Unable to assess secondary to mental status and severe agitation as he just keeps kicking COORDINATION: No clear dysmetria on observed movements GAIT: Unable to assess secondary to mental status and severe agitation as he just keeps kicking Results & Data Vital Signs (Past 12 Hours) Vital Signs Temp Pulse Pulse Resp BP BP Pulse Ox 09/28/19 12:11 90 20 169/97 H 95 09/28/19 10:25 92 H 18 179/77 H 95 09/28/19 10:01 37.3 C 89 24 98 09/28/19 08:59 92 H 22 142/74 H 100 PG Care Time/CCT Total # of Minutes Spent Total Time Spent with Patient: Total time spent is greater than 50% in coordination of care (as documented) at patient's floor/unit and/or counseling patient:
[2019-09-28 14:03] LABS: Vitamin B12 1919 pg/ml (211-911)
[2019-09-28 14:04] LABS: Folate (Folic Acid) > 24.00 ng/ml (>5.38)
[2019-09-28] MEDS: SODIUM CHLORIDE 0.9% 1000ML 1,000 ML IV SCH (14:25)
[2019-09-28] MEDS ORDERED: Nursing to Pharmacy Communication ONE (14:39)
[2019-09-28] MEDS ORDERED: SODIUM CHLORIDE 0.9% IV STA (14:45)
[2019-09-28] MEDS ORDERED: PHENYTOIN IV STA (14:45)
[2019-09-28] MEDS: FINASTERIDE 5 MG TAB PO SCH (14:57)
[2019-09-28 15:12] LABS: Appearance Urine Clear (Clear); Bacteria Urine Automated Negative (Negative); Bilirubin Urine Negative (Negative); Blood Urine 1+ (Negative); Cast Urine Automated 0 /lpf (0-5); Color Urine Yellow; Glucose Urine UA Negative (Negative); Ketones Urine Negative (Negative); Leukocyte Esterase Urine Negative (Negative); Nitrite Urine Negative (Negative); Protein Urine 1+ (Negative); Specific Gravity Urine 1.017 (1.000-1.030); Urobilinogen Urine Negative (Negative); WBC Urine Automated 0 /hpf (0-5)
[2019-09-28 15:25] LABS: Amphetamines+Metham, Urine Neg (Neg); Barbiturates, Urine Neg (Neg); Benzodiazepine, Urine Neg (Neg); Cocaine, Urine Neg (Neg); MDMA (Ecstacy), Urine Neg (Neg); Methadone, Urine Neg (Neg); Opiate, Urine Neg (Neg); Phencyclidine, Urine Neg (Neg)
[2019-09-28] MEDS ORDERED: levETIRAcetam 500 MG TAB PO SCH (21:00)
[2019-09-28] MEDS: AMLODIPINE BESYLATE 5 MG TAB PO SCH (21:02)
[2019-09-28] MEDS: HydrALAZINE HCL 20 MG/ML VIAL IV PRN (21:45)
[2019-09-28] MEDS ORDERED: 0.9 % SODIUM CHLORIDE FLUSH 20 ML in SYRINGE 0 ML IV SCH (23:30)
[2019-09-28] MEDS ORDERED: PHENYTOIN 150 MG in SYRINGE 0 ML IV SCH (23:30)
[2019-09-29] MEDS: SODIUM CHLORIDE 0.9% 1000ML 1,000 ML IV SCH (01:13)
[2019-09-29] MEDS: HydrALAZINE HCL 20 MG/ML VIAL IV PRN ×3 (02:03→20:54)
[2019-09-29 06:26] LABS: Basophils # (auto) 0.01 K/uL (0-0.2); Basophils % (auto) 0.1 %; Hematocrit (blood only) 48.6 % (42-52); Immature Granulocytes # (auto) 0.06 K/uL (0.00-0.02); Immature Granulocytes % (auto) 0.4 %; Lymphocytes # (auto) 0.61 K/uL (1.2-3.4); Lymphocytes % (auto) 3.6 %; Mean Corpuscular Hemoglobin 31.3 pg (25-34); Mean Corpuscular Volume 89.5 fL (80-100); Mean Platelet Volume 10.9 fL (7.4-10.4); Monocytes # (auto) 0.75 K/uL (0.11-0.59); Monocytes % (auto) 4.4 %; Neutrophils # (auto) 15.46 K/uL (1.4-6.5); Neutrophils % (auto) 91.5 %; Platelet Count 206 K/uL (130-400); RDW Coefficient of Variation 13.7 % (11.5-14.5); RDW Standard Deviation 44.6 fL (36.4-46.3); Red Blood Count 5.43 M/uL (4.7-6.1); White Blood Count 16.89 K/uL (4.8-10.8)
[2019-09-29 06:34] LABS: Estimated Average Glucose 108 mg/dl; Hemoglobin A1C 5.4 % (4.5-5.6)
[2019-09-29 06:56] LABS: Alanine Aminotransferase 48 U/L (12-78); Albumin Level 4.2 gm/dl (3.4-5.0); Aspartate Aminotransferase 66 U/L (15-37); BUN Creatinine Ratio 13.7 (10-20); Blood Urea Nitrogen 21 mg/dl (7-18); Calcium 9.7 mg/dl (8.5-10.1); Carbon Dioxide 24 mmol/L (21-32); Chloride 110 mmol/L (98-107); Cholesterol 166 mg/dl (0-200); Est GFR (African American) 52.6; Est GFR (Non-African American) 45.4; Glucose 141 mg/dl (70-99); Potassium 3.4 mmol/L (3.5-5.1); Sodium 142 mmol/L (136-145)
[2019-09-29 07:01] LABS: Albumin Globulin Ratio 0.9 (0.9-2); Alkaline Phosphatase 139 U/L (45-117); Bilirubin,Total 1.9 mg/dl (0.2-1); Chol HDL Ratio 2; Globulin 4.9 gm/dl (2.5-4.0); HDL Cholesterol 85 mg/dl; LDL Cholesterol Calculated 71 mg/dl; Total Protein 9.1 gm/dl (6.4-8.2); Triglycerides 52 mg/dl (0-150); VLDL Cholesterol 10 mg/dl
[2019-09-29] MEDS: POTASSIUM CHLORIDE / WTR 10 MEQ/100 ML PLCT IV SCH ×2 (08:11→09:46)
[2019-09-29] MEDS: LACTATED RINGER'S 1,000 ML IV SCH ×2 (08:11→20:40)
[2019-09-29] MEDS ORDERED: cefTRIAXone SODIUM 2,000 MG in DEXTROSE 5% 50 ML IV SCH (09:00)
[2019-09-29] MEDS: TAMSULOSIN HCL 0.4 MG CAP PO SCH (10:22)
[2019-09-29] MEDS: PANTOprazole 40 MG TAB PO SCH (10:23)
[2019-09-29] MEDS: VITAMIN B COMPLEX TAB PO SCH (10:23)
[2019-09-29] MEDS: FINASTERIDE 5 MG TAB PO SCH (10:23)
[2019-09-29] MEDS: PARoxetine HCl 20 MG TAB PO SCH (10:23)
--- NOTE | 2019-09-29 13:57 | Electroencephalogram ---
EEG Procedure Note Date of Service September 29, 2019 Start / End Times Start Time: 9:11 AM End Time: 9:31 AM Referring Physician Cecilio Ambriz MD History Seizure-like activity Home Medication List Home Medications Medication Instructions Recorded Confirmed Type amlodipine 10 mg PO HS 09/28/19 09/28/19 History finasteride 5 mg PO DAILY 09/28/19 09/28/19 History omeprazole 20 mg PO DAILY 09/28/19 09/28/19 History paroxetine HCl 20 mg PO DAILY 09/28/19 09/28/19 History tamsulosin 0.4 mg PO DAILY 09/28/19 09/28/19 History vitamin B complex-folic acid [B 1 tab PO DAILY 09/28/19 09/28/19 History Complex 1 (with folic acid)] Inpatient Medication List Amlodipine Besylate (Norvasc) 10 mg PO HS [facility] Stop: 10/28/19 20:59 Last Admin: 09/28/19 21:02 Dose: Not Given Documented by: [id number] Finasteride (Proscar) 5 mg PO DAILY [facility] Stop: 10/28/19 12:59 Last Admin: 09/29/19 10:23 Dose: Not Given Documented by: [id number] Admin: 09/28/19 14:57 Dose: Not Given Documented by: [id number] Hydralazine HCl (Hydralazine Hcl) 10 mg IV Q4H PRN PRN Reason: high blood pressure Stop: 10/28/19 20:34 Last Admin: 09/29/19 12:21 Dose: 10 mg Documented by: [id number] Lactated Ringer's (Lr) 1,000 mls @ 80 mls/hr IV .[id number] [facility] Stop: 10/29/19 07:59 Last Admin: 09/29/19 08:11 Dose: 80 mls/hr Documented by: [id number] Pantoprazole Sodium (Protonix) 40 mg PO DAILY [facility] Stop: 10/29/19 08:59 Last Admin: 09/29/19 10:23 Dose: Not Given Documented by: [id number] Paroxetine HCl (Paxil) 20 mg PO DAILY [facility] Stop: 10/29/19 08:59 Last Admin: 09/29/19 10:23 Dose: Not Given Documented by: [id number] Tamsulosin HCl (Flomax) 0.4 mg PO DAILY [facility] Stop: 10/29/19 08:59 Last Admin: 09/29/19 10:22 Dose: Not Given Documented by: [id number] Vitamin B Complex (Vitamin B Complex) 1 tab PO DAILY [facility] Stop: 10/29/19 08:59 Last Admin: 09/29/19 10:23 Dose: Not Given Documented by: [id number] Discontinued Medications Hydralazine HCl (Hydralazine Hcl) 5 mg IV Q4H PRN PRN Reason: high blood pressure Stop: 10/28/19 20:34 Last Admin: 09/29/19 02:03 Dose: 5 mg Documented by: [id number] Admin: 09/28/19 21:45 Dose: 5 mg Documented by: [id number] Lorazepam (Ativan) 1 mg in 2 mls @ 2 mls/min IV NOW STA Stop: 09/28/19 08:55 Last Admin: 09/28/19 09:57 Dose: Not Given Documented by: [id number] Levetiracetam 1,000 mg/ (Dextrose) 110 mls @ 440 mls/hr IV NOW STA Stop: 09/28/19 11:20 Last Infusion: 09/28/19 12:11 Dose: 0 mls/hr Documented by: [id number] Admin: 09/28/19 11:39 Dose: 440 mls/hr Documented by: [id number] Sodium Chloride (Nss 1000ml) 1,000 mls @ 80 mls/hr IV .[id number] [facility] Stop: 10/28/19 12:59 Last Infusion: 09/29/19 08:10 Dose: 0 mls/hr Documented by: [id number] Admin: 09/29/19 01:13 Dose: 80 mls/hr Documented by: [id number] Infusion: 09/29/19 01:13 Dose: 80 mls/hr Documented by: [id number] Admin: 09/28/19 14:25 Dose: 80 mls/hr Documented by: [id number] Phenytoin 1,300 mg/ Sodium (Chloride) 126 mls @ 290 mls/hr IV NOW STA Stop: 09/28/19 15:11 Last Infusion: 09/28/19 17:22 Dose: 0 mls/hr Documented by: [id number] Admin: 09/28/19 15:08 Dose: 290 mls/hr Documented by: [id number] Potassium Chloride (K Marcelo / Wtr) 10 meq in 100 mls @ 100 mls/hr IV Q1H [facility] Stop: 09/29/19 09:59 Last Infusion: 09/29/19 10:56 Dose: 0 mls/hr Documented by: [id number] Admin: 09/29/19 09:46 Dose: 100 mls/hr Documented by: [id number] Infusion: 09/29/19 09:13 Dose: 0 mls/hr Documented by: [id number] Admin: 09/29/19 08:11 Dose: 100 mls/hr Documented by: [id number] Lorazepam (Ativan) Confirm Administered Dose 2 mg .ROUTE .STK-MED ONE Stop: 09/28/19 08:54 Last Increment: 09/28/19 09:09 Dose: 1 mg Documented by: [id number] Increment: 09/28/19 08:56 Dose: 1 mg Documented by: [id number] Description This is a 21 electrode EEG with a single channel dedicated to limited EKG. The electrodes were placed in accordance with the International 10-20 system. This study is technically limited due to excessive patient movement throughout the entire study. The predominant background rhythm consists of a mix of 10 Hz alpha rhythm and admixed theta activity. There is a symmetric frontal beta rhythm as well. Photic stimulation and hyperventilation are not performed. There is no focal or lateralized slowing. No definitive epileptiform abnormalities observed. Excessive patient movement is observed throughout the entire recording limiting its usefulness. Interpretation This is a technically limited EEG due to excessive patient movement throughout the entire study. No definitive epileptiform abnormalities observed. Clinical Correlation This technically limited EEG does not completely exclude a diagnosis of epilepsy or seizure disorder. Please see yesterday's neurology consultation for more specific clinical correlation. [facility] EEG Procedure Codes Indication for Procedure (1) Seizure-like activity: Neurology Neurology: [id number] EEG include record awake & drowsy
[2019-09-29] MEDS: LORazepam 1 MG/2 ML VIAL IV PRN ×2 (14:28→22:28)
--- NOTE | 2019-09-29 14:31 | XRay Report ---
XR chest 1V portable HISTORY: Cough. Rule out pneumonia COMPARISON: Chest 12/12/2016. No pneumothorax. No pleural effusions. The heart is normal in size. Rota roshan study. This likely accounts for the hyperlucent right lung. No new focal lung consolidations to s uggest pneumonia. No evidence for pulmonary edema. FINDINGS: No pneumothorax. No pleural effusions. The heart is normal in size. Rotated study. This lik lennie accounts for the hyperlucent right lung. No new focal lung consolidations to suggest pneumonia. N o evidence for pulmonary edema. IMPRESSION: Rotated study. No acute process within the chest. Electronically signed by: Aris Saxena M.D. 09/29/2019 2:30 PM
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
[2019-09-29] MEDS: AMLODIPINE BESYLATE 5 MG TAB PO SCH (20:18)
[2019-09-30 07:11] LABS: Basophils # (auto) 0.01 K/uL (0-0.2); Basophils % (auto) 0.1 %; Hematocrit (blood only) 47.1 % (42-52); Hemoglobin 16.1 g/dL (14.0-18.0); Immature Granulocytes # (auto) 0.09 K/uL (0.00-0.02); Immature Granulocytes % (auto) 0.6 %; Lymphocytes # (auto) 0.85 K/uL (1.2-3.4); Lymphocytes % (auto) 5.6 %; Mean Corpuscular Hemoglobin 30.4 pg (25-34); Mean Corpuscular Hgb Conc 34.2 g/dL (32-36); Mean Corpuscular Volume 88.9 fL (80-100); Mean Platelet Volume 11.1 fL (7.4-10.4); Monocytes # (auto) 0.96 K/uL (0.11-0.59); Monocytes % (auto) 6.3 %; Neutrophils # (auto) 13.37 K/uL (1.4-6.5); Neutrophils % (auto) 87.4 %; Platelet Count 182 K/uL (130-400); RDW Coefficient of Variation 14.1 % (11.5-14.5); RDW Standard Deviation 45.6 fL (36.4-46.3); White Blood Count 15.28 K/uL (4.8-10.8)
[2019-09-30 07:47] LABS: Alanine Aminotransferase 47 U/L (12-78); Albumin Level 3.7 gm/dl (3.4-5.0); Aspartate Aminotransferase 60 U/L (15-37); BUN Creatinine Ratio 13.5 (10-20); Blood Urea Nitrogen 20 mg/dl (7-18); Calcium 9.2 mg/dl (8.5-10.1); Carbon Dioxide 27 mmol/L (21-32); Chloride 111 mmol/L (98-107); Est GFR (African American) 56.1; Est GFR (Non-African American) 48.4; Glucose 134 mg/dl (70-99); Potassium 3.1 mmol/L (3.5-5.1); Sodium 144 mmol/L (136-145)
[2019-09-30 07:49] LABS: Albumin Globulin Ratio 0.8 (0.9-2); Alkaline Phosphatase 115 U/L (45-117); Bilirubin,Total 1.6 mg/dl (0.2-1); Globulin 4.7 gm/dl (2.5-4.0); Total Protein 8.4 gm/dl (6.4-8.2)
[2019-09-30] MEDS: TAMSULOSIN HCL 0.4 MG CAP PO SCH (09:49)
[2019-09-30] MEDS: VITAMIN B COMPLEX TAB PO SCH (09:51)
[2019-09-30] MEDS: LACTATED RINGER'S 1,000 ML IV SCH ×2 (09:51→19:53)
[2019-09-30] MEDS: PARoxetine HCl 20 MG TAB PO SCH (09:51)
[2019-09-30] MEDS: PANTOprazole 40 MG TAB PO SCH (09:51)
[2019-09-30] MEDS: FINASTERIDE 5 MG TAB PO SCH (09:51)
[2019-09-30 11:15] LABS: Allen Test Pos (Pos); Base Excess ABG 3.3 mEq/L (-9-1.8); HCO3 ABG 24 mmol/L (19-24); PCO2 ABG 28 mmHg (35-46); PO2 ABG 60 mm/Hg (80-95)
--- NOTE | 2019-09-30 11:15 | Hospitalist Progress Note ---
Date of Service September 30, 2019 Assessment & Plan (1) Seizure-like activity: Unwitnessed seizure, reported tongue laceration and incontinence with already baseline incontinence. Is unable to convey any history or follow commands, post-ictal vs. baseline advanced Alzheimer Dementia Unable to safely take Anti-epileptics PO, unsafe for discharge ICE RINK ATTENDANT recs to keep NPO as has s/s of aspiration risk CXR one view 09/29 was negative with prior negative procal Discussed with case management attempts to get Will for code status; called [facility] to try to speak with physician to get code status but no answer on multiple attempts - Patients with dementia are at increased risk of seizures due to bad brain substrate compared to the general population. - There were no significant electrolyte abnormalities to provoke event, or hemorrhage/CVA seen on CT Head. - Was given 1g Keppra load and Ativan 4mg in ED on 09/28/19. Keppra was not continued given baseline agitation and hx of PTSD. - Per neuro recs - Dilantin was given considering cost effective and IV Access. - Recommend MRI but not performed as agitation wouldn't produce adequate image. - Patient was loaded with Dilantin 1300mg for estimated weight of 65kg. - Continue with Dilantin 150mg BID, with outpatient goals of free Dilantin le nancy 1.5-2; total level between 10-20mg/L - Will require outpatient follow-up in 2-4 weeks after discharge. POA was contacted today who changed code status to DNR/DNI status (2) Dementia: reported advanced Alzheimer's requiring 24/7 care (3) SHAHANA (acute kidney injury): Most likely pre-renal, not able to take care of self to drink PO because of dementia IVF NSS changed to lactated ringers as hyperchloremic trend value (4) Hepatitis C: reported history; lab HCV PCR pending (5) GERD (gastroesophageal reflux disease): hold home Amlodipine meds as NPO (6) Hypertension: hold home meds as NPO (7) PTSD (post-traumatic stress disorder): hold home Paroxetine as NPO (8) Hypokalemia: replaced with potassium K rider trend (9) Hematuria, gross: Due to reported trauma from pulling of mckenna cath (10) AMS (altered mental status): Further investigation warranted Unable to get a baseline as unable to reach medical care at facility and half-way staff here with patient are unfamiliar. Ordered Ammonia, ABG, Lactate, LP to be performed tomorrow after senior resident graciously contacted POA for consent, blood cultures (11) Respiratory alkalosis: Resulted from ABG; concerned process could be from PE also with tachycardia so CTA PE was ordered. Supervising Physician Co-Signing Physician Notes Attending attestation Pt seen and examined in concert with Dr. Tomlin. In agreement with the documented findings as noted in the resident documentation with any exceptions or additions as noted here. Increased baseline agitation, responsive to noxious stimuli only. On examination, PERRL, S1/S2 nl RRR no MCG. CTAB. Abd NT/ND BS+ve Respiratory alkalosis with persistent sedation and tachypnea - stably elevated WBC, mild lactate elevation. CTA chest without apparent pathology, nodule as below. Further evaluation of delirium/obtundation below. Seizure disorder with status epilepticus - neurology consultation. Keppra. Still NPO 2/2 sedation. LP ordered for evaluation of underlying infectious pathology resulting in symptoms. f/u RPR Alzheimer's disease - chronic baseline dementia per history provided with concomitant safety behaviors. Potential for FAST7c discussed with POA (brother) and would like to d/w palliative care service, consultation placed. HTN - mildly elevated, resume amlodipine when can safely swallow medication. GERD - IV PPI Else see resident documentation as noted. Subjective Caveat: Unable to obtain secondary to Dementia/AMS. No acute events reported overnight, responds to painful stimuli then returns to sleepy state, unable to follow commands or tolerate PO intake. Unable to get neuro baseline; half-way guards are not familiar with patient. Review of Systems Review of Systems: Unobtainable due to cognitive status Physical Exam Constitutional: + ill appearing and + altered mental status Neck: normal visual inspection and trachea midline Respiratory: normal respiratory effort, lungs clear to auscultation Cardiovascular: Rate/Rhythm: regular rate and regular rhythm Extremities: no edema Gastrointestinal (Abdomen): Inspection/Auscultation: normal bowel sounds Percussion/Palpation: abdomen soft; abdomen nontender Musculoskeletal: Head/Neck/Chest: normocephalic and head atraumatic Skin: no rashes, warm and dry Neurologic: only responds to painful stimuli Results & Data Vital Signs (Past 12 Hours) Vital Signs Temp Pulse Pulse Resp BP Pulse Ox 09/30/19 08:00 104 H 09/30/19 07:09 36.4 C L 91 H 28 H 174/96 H 95 09/30/19 03:02 36.9 C 98 H 22 178/97 H 93 Laboratory Results Laboratory Results - last 24 hr 09/29/19 09/30/19 09/30/19 06:11 06:48 06:48 WBC 15.28 H RBC 5.30 Hgb 16.1 Hct 47.1 MCV 88.9 MCH 30.4 MCHC 34.2 RDW Std Deviation 45.6 RDW Coeff of Myrtle 14.1 Plt Count 182 MPV 11.1 H Immature Gran % (Auto) 0.6 Neut % (Auto) 87.4 Lymph % (Auto) 5.6 Gaines % (Auto) 6.3 Eos % (Auto) 0.0 Baso % (Auto) 0.1 Immature Gran # (Auto) 0.09 H Neut # (Auto) 13.37 H Lymph # (Auto) 0.85 L Gaines # (Auto) 0.96 H Eos # (Auto) 0.00 Baso # (Auto) 0.01 ABG pH ABG pCO2 ABG pO2 ABG HCO3 ABG O2 Saturation ABG Base Excess Yousuf Test Barometric Pressure Oxygen Given Sodium 144 Potassium 3.1 L Chloride 111 H Carbon Dioxide 27 Anion Gap 6.0 BUN 20 H Creatinine 1.46 H Est Cr Clr Drug Dosing Not Reportable Est GFR ( Amer) 56.1 Est GFR (Non-Af Amer) 48.4 BUN/Creatinine Ratio 13.5 Glucose 134 H Lactate Calcium 9.2 Total Bilirubin 1.6 H AST 60 H ALT 47 Alkaline Phosphatase 115 Ammonia Total Protein 8.4 H Albumin 3.7 Globulin 4.7 H Albumin/Globulin Ratio 0.8 L Phenytoin RPR HCV RNA (PCR) IUs/ml <15 NOT DETECTED HCV RNA PCR log IUs/ml <1.18 NOT DETECTED 09/30/19 09/30/19 09/30/19 06:48 11:04 11:04 WBC RBC Hgb Hct MCV MCH MCHC RDW Std Deviation RDW Coeff of Myrtle Plt Count MPV Immature Gran % (Auto) Neut % (Auto) Lymph % (Auto) Gaines % (Auto) Eos % (Auto) Baso % (Auto) Immature Gran # (Auto) Neut # (Auto) Lymph # (Auto) Gaines # (Auto) Eos # (Auto) Baso # (Auto) ABG pH 7.55 H* ABG pCO2 28 L ABG pO2 60 L ABG HCO3 24 ABG O2 Saturation 94.0 ABG Base Excess 3.3 H Yousuf Test Pos Barometric Pressure 727.2 Oxygen Given ROOM AIR Sodium Potassium Chloride Carbon Dioxide Anion Gap BUN Creatinine Est Cr Clr Drug Dosing Est GFR ( Amer) Est GFR (Non-Af Amer) BUN/Creatinine Ratio Glucose Lactate Calcium Total Bilirubin AST ALT Alkaline Phosphatase Ammonia 13.0 Total Protein Albumin Globulin Albumin/Globulin Ratio Phenytoin 19.5 RPR HCV RNA (PCR) IUs/ml HCV RNA PCR log IUs/ml 09/30/19 09/30/19 09/30/19 11:04 12:01 12:01 WBC 17.00 H RBC 5.31 Hgb 16.5 Hct 48.1 MCV 90.6 MCH 31.1 MCHC 34.3 RDW Std Deviation 46.5 H RDW Coeff of Myrtle 14.0 Plt Count 199 MPV 10.8 H Immature Gran % (Auto) 0.4 Neut % (Auto) 87.7 Lymph % (Auto) 5.2 Gaines % (Auto) 6.6 Eos % (Auto) 0.0 Baso % (Auto) 0.1 Immature Gran # (Auto) 0.07 H Neut # (Auto) 14.91 H Lymph # (Auto) 0.88 L Gaines # (Auto) 1.13 H Eos # (Auto) 0.00 Baso # (Auto) 0.01 ABG pH ABG pCO2 ABG pO2 ABG HCO3 ABG O2 Saturation ABG Base Excess Yousuf Test Barometric Pressure Oxygen Given Sodium Potassium Chloride Carbon Dioxide Anion Gap BUN Creatinine Est Cr Clr Drug Dosing Est GFR ( Amer) Est GFR (Non-Af Amer) BUN/Creatinine Ratio Glucose Lactate 2.2 H* Calcium Total Bilirubin AST ALT Alkaline Phosphatase Ammonia Total Protein Albumin Globulin Albumin/Globulin Ratio Phenytoin RPR Pending HCV RNA (PCR) IUs/ml HCV RNA PCR log IUs/ml Medications Administered Amlodipine Besylate (Norvasc) 10 mg PO HS FABIAN Stop: 10/28/19 20:59 Last Admin: 09/29/19 20:18 Dose: Not Given Documented by: [id number] Admin: 09/28/19 21:02 Dose: Not Given Documented by: [id number] Enoxaparin Sodium (Lovenox) 40 mg SQ QAM [facility] Stop: 10/30/19 12:59 Last Admin: 09/30/19 14:30 Dose: 40 mg Documented by: [id number] Finasteride (Proscar) 5 mg PO DAILY [facility] Stop: 10/28/19 12:59 Last Admin: 09/30/19 09:51 Dose: Not Given Documented by: [id number] Admin: 09/29/19 10:23 Dose: Not Given Documented by: [id number] Admin: 09/28/19 14:57 Dose: Not Given Documented by: [id number] Hydralazine HCl (Hydralazine Hcl) 10 mg IV Q4H PRN PRN Reason: high blood pressure Stop: 10/28/19 20:34 Last Admin: 09/29/19 20:54 Dose: 10 mg Documented by: [id number] Admin: 09/29/19 12:21 Dose: 10 mg Documented by: [id number] Lactated Ringer's (Lr) 1,000 mls @ 80 mls/hr IV .[id number] [facility] Stop: 10/29/19 07:59 Last Admin: 09/30/19 09:51 Dose: 80 mls/hr Documented by: [id number] Infusion: 09/30/19 09:51 Dose: 80 mls/hr Documented by: [id number] Infusion: 09/30/19 09:49 Dose: 80 mls/hr Documented by: [id number] Infusion: 09/30/19 07:38 Dose: 80 mls/hr Documented by: [id number] Admin: 09/29/19 20:40 Dose: 80 mls/hr Documented by: [id number] Infusion: 09/29/19 20:40 Dose: 0 mls/hr Documented by: [id number] Admin: 09/29/19 08:11 Dose: 80 mls/hr Documented by: [id number] Ioversol (Optiray 320 125ml) 120 ml IV ONCE PRN PRN Reason: Interaction Checking Stop: 10/04/19 12:23 Last Admin: 09/30/19 12:24 Dose: 1 ml Documented by: [id number] Pantoprazole Sodium (Protonix) 40 mg PO DAILY [facility] Stop: 10/29/19 08:59 Last Admin: 09/30/19 09:51 Dose: Not Given Documented by: [id number] Admin: 09/29/19 10:23 Dose: Not Given Documented by: [id number] Paroxetine HCl (Paxil) 20 mg PO DAILY [facility]IAN Stop: 10/29/19 08:59 Last Admin: 09/30/19 09:51 Dose: Not Given Documented by: [id number] Admin: 09/29/19 10:23 Dose: Not Given Documented by: [id number] Tamsulosin HCl (Flomax) 0.4 mg PO DAILY [facility] Stop: 10/29/19 08:59 Last Admin: 09/30/19 09:49 Dose: Not Given Documented by: [id number] Admin: 09/29/19 10:22 Dose: Not Given Documented by: [id number] Vitamin B Complex (Vitamin B Complex) 1 tab PO DAILY FABIAN Stop: 10/29/19 08:59 Last Admin: 09/30/19 09:51 Dose: Not Given Documented by: [id number] Admin: 09/29/19 10:23 Dose: Not Given Documented by: [id number] Resident Activity Tracking Resident Involvement: Resident Care Provided Care Provided: Adult Hospital Medicine (1) AMS (altered mental status) Altered mental status type: unspecified Qualified Code(s): R41.82 - Altered mental status, unspecified
[2019-09-30 11:17] LABS: pH ABG 7.55 (7.35-7.45)
[2019-09-30] MEDS: POTASSIUM CHLORIDE / WTR 10 MEQ/100 ML PLCT IV SCH ×4 (12:02→15:51)
[2019-09-30 12:12] LABS: Basophils # (auto) 0.01 K/uL (0-0.2); Basophils % (auto) 0.1 %; Hematocrit (blood only) 48.1 % (42-52); Hemoglobin 16.5 g/dL (14.0-18.0); Immature Granulocytes # (auto) 0.07 K/uL (0.00-0.02); Immature Granulocytes % (auto) 0.4 %; Lymphocytes # (auto) 0.88 K/uL (1.2-3.4); Lymphocytes % (auto) 5.2 %; Mean Corpuscular Hemoglobin 31.1 pg (25-34); Mean Corpuscular Hgb Conc 34.3 g/dL (32-36); Mean Corpuscular Volume 90.6 fL (80-100); Mean Platelet Volume 10.8 fL (7.4-10.4); Monocytes # (auto) 1.13 K/uL (0.11-0.59); Monocytes % (auto) 6.6 %; Neutrophils # (auto) 14.91 K/uL (1.4-6.5); Neutrophils % (auto) 87.7 %; Platelet Count 199 K/uL (130-400); RDW Standard Deviation 46.5 fL (36.4-46.3); Red Blood Count 5.31 M/uL (4.7-6.1)
[2019-09-30] MEDS ORDERED: OPTIRAY 320 125ml IV PRN (12:24)
--- NOTE | 2019-09-30 12:34 | CT Scan Report ---
CT ANGIOGRAM OF THE CHEST CLINICAL HISTORY: Cough. Atypical chest pain. Possible acute pulmonary embolism. COMPARISON STUDY: Chest x-ray dated 09/29/2019 TECHNIQUE: Following the IV administration of 120 mL of Optiray-320, CT angiogram of the thorax was p erformed from the thoracic inlet to the lung bases utilizing the pulmonary embolus protocol. Images a re reviewed in the axial, sagittal, and coronal planes. IV contrast was administered without complica tion. MIP imaging was performed. A dose lowering technique was utilized adhering to the principles o f ALARA. CT DOSE: 431.61 mGy.cm FINDINGS: No pathologically enlarged axillary mediastinal or hilar lymph nodes were visualized. There was no evidence of thoracic aortic dilatation. There were no pulmonary artery filling defects to indicate acute pulmonary embolism. Examination is c ompromised due to significant respiratory motion artifact. No pleural effusions are visualized. There are dependent atelectatic changes. There is no lobar consolidation. There is a suspected 9 mm g roundglass right upper lobe pulmonary nodule. There is a 7 mm solid left upper lobe pulmonary nodule. The study is significantly compromised due to respiratory motion artifact. IMPRESSION: 1. Significantly limited study secondary to respiratory motion artifact 2. No evidence of central pulmonary embolism 3. Dependent atelectatic changes 4. 9 mm groundglass right upper lobe pulmonary nodule. 7 mm solid left upper lobe pulmonary nodule. A six-month follow-up CT scan is recommended. Electronically signed by: Lev Auguste M.D. 09/30/2019 12:33 PM
[2019-09-30] MEDS: PATIENT'S HEIGHT NEEDED SCH ×2 (12:51→13:45)
[2019-09-30 13:35] LABS: Hepatitis C Viral RNA by PCR <15 NOT DETECTED
[2019-09-30 13:37] LABS: Hepatitis C Vira RNA (Log) PCR <1.18 NOT DETECTED
[2019-09-30] MEDS: ENOXAPARIN INJ 40 MG/0.4 ML SYR SQ SCH (14:30)
--- NOTE | 2019-09-30 15:45 | Communication Note ---
Date of Service: September 30, 2019 I spoke at length with patient's medical POA Gerard Wyatt to discuss lumbar puncture and sedation. His POA also relayed to me that patient would not want heroic measures including chest compressions or intubation. Code status was changed. Discussed given the extent of his dementia and would POA be interested in discussing with palliative service options for hospice, and POA was agreeable. Consult order placed. All questions answered. POA verbalized understanding and agreement with plan. Shana Horn MD Resident Physician PGY3
[2019-09-30] MEDS: HydrALAZINE HCL 20 MG/ML VIAL IV PRN (19:53)
[2019-09-30] MEDS: AMLODIPINE BESYLATE 5 MG TAB PO SCH (20:01)
--- NOTE | 2019-09-30 23:00 | Anesthesiology Consultation ---
Date of Service September 30, 2019 Assessment & Plan (1) Encounter for pre-operative examination: Chart Review Chart Review: Acceptable Risk for Surgery and Patient NOT seen in Pre Admission Testing Of note, patient on prophylactic dosing of lovenox 40mg SQ q24 hours. Last dose at 1430 on . Given his creatine clearance above 30, should be ok to have LP tomorrow AM as it will be at least 12 hours since his previous dose. Phone consent was obtained from patient's brother, Gerard Wyatt. All questions were answered. Consults Requested none ASA ASA3 Proposed Anesthesia Anesthesia Type: MAC Risk / Benefits Reviewed With: PT / POA / Parent / Guardian, Accepts Plan and Informed Consent Obtained History Surgery Operation Date: 09/30/19 13:30 Proposed Procedures p Lumbar Puncture - Bud Solorio MD Height/Weight Weight: 58.4 kg Allergies Allergy/AdvReac Type Severity Reaction Status Date / Time No Known Allergies Allergy Unverified 09/28/19 09:34 Medications Home Medications Medication Instructions Recorded Confirmed Last Taken amlodipine 10 mg PO HS 09/28/19 09/28/19 Unknown finasteride 5 mg PO DAILY 09/28/19 09/28/19 Unknown omeprazole 20 mg PO DAILY 09/28/19 09/28/19 Unknown paroxetine HCl 20 mg PO DAILY 09/28/19 09/28/19 Unknown tamsulosin 0.4 mg PO DAILY 09/28/19 09/28/19 Unknown vitamin B complex-folic acid [B 1 tab PO DAILY 09/28/19 09/28/19 Unknown Complex 1 (with folic acid)] Active Medications Generic Name Dose Route Start Last Admin Trade Name Patricia PRN Reason Stop Dose Admin Amlodipine Besylate 10 mg 09/28/19 21:00 09/30/19 20:01 Norvasc PO 10/28/19 20:59 Not Given HS FABIAN Enoxaparin Sodium 40 mg 09/30/19 13:00 09/30/19 14:30 Lovenox SQ 10/30/19 12:59 40 mg QAM FABIAN Administration Finasteride 5 mg 09/28/19 13:00 10/01/19 08:26 Proscar PO 10/28/19 12:59 Not Given DAILY FABIAN Haloperidol Lactate 5 mg 09/30/19 10:51 10/01/19 01:57 Haldol IM 10/30/19 10:50 5 mg Q2H PRN Administration Agitation Hydralazine HCl 10 mg 09/29/19 02:44 10/01/19 04:08 Hydralazine Hcl IV 10/28/19 20:34 10 mg Q4H PRN Administration high blood pressure Lactated Ringer's 1,000 mls @ 80 mls/hr 09/29/19 08:00 10/01/19 08:26 Lr IV 10/29/19 07:59 80 mls/hr .[id number] FABIAN Administration Ioversol 120 ml 09/30/19 12:24 09/30/19 12:24 Optiray 320 125ml IV 10/04/19 12:23 1 ml ONCE PRN Administration Interaction Checking Pantoprazole Sodium 40 mg 09/29/19 09:00 10/01/19 08:26 Protonix PO 10/29/19 08:59 Not Given DAILY FABIAN Paroxetine HCl 20 mg 09/29/19 09:00 10/01/19 08:26 Paxil PO 10/29/19 08:59 Not Given DAILY FABIAN Tamsulosin HCl 0.4 mg 09/29/19 09:00 10/01/19 08:26 Flomax PO 10/29/19 08:59 Not Given DAILY FABIAN Vitamin B Complex 1 tab 09/29/19 09:00 10/01/19 08:27 Vitamin B Complex PO 10/29/19 08:59 Not Given DAILY FABIAN NPO Date Last Intake of Fluids: 10/01/19 Time Last Intake of Fluids: 00:00 Date Last Intake of Solids: 10/01/19 Time Last Intake of Solids: 00:00 Past Medical History Medical History Agitation (Acute) SHAHANA (acute kidney injury) Alzheimer disease AMS (altered mental status) (Acute) Dementia (Acute) GERD (gastroesophageal reflux disease) (Chronic) Hepatitis C (Chronic) Hypernatremia Hypertension (Chronic) Hypokalemia PTSD (post-traumatic stress disorder) (Chronic) Respiratory alkalosis Seizure (Acute) Seizure-like activity: Unwitnessed seizure, reported tongue laceration and incontinence with already baseline incontinence. Is unable to convey any history or follow commands, post-ictal vs. baseline advanced Alzheimer Dementia Neurology following patient. Dilantin was given. Exercise / Class Metabolic Activity III < 4 Walking/Shop/Light housework Past Family History Family History Other Family history non-contributory Past Anesthesia History No Hx of Anesthesia Complications and No Family Hx of Anesthesia Complications History of PONV No Hx of PONV and No Hx of Motion Sickness Social History Smoking Status: Former smoker Do You Dip or Chew Tobacco: No Hx Alcohol Use: No Review of Systems unable to assess Physical Exam Vital Signs Last Vital Signs Temp 37.2 C 10/01/19 07:01 Pulse 113 H 10/01/19 07:01 Resp 22 10/01/19 07:01 BP 165/96 H 10/01/19 07:01 Pulse Ox 94 10/01/19 07:01 ENMT Mouth: no TMJ abnormality and no dentition abnormality Thyromental Distance: > or= 3.5 Finger Breadths Mallampati Class: II Neck neck extension not limited Respiratory normal respiratory effort; no respiratory distress Auscultation: lungs clear to auscultation bilaterally Cardiovascular Rate/Rhythm: regular rate and regular rhythm Neurologic moves all extremities Psychiatric Orientation: alert and oriented x 3 Testing Laboratory Results 10/01/19 06:39 10/01/19 06:39 Hemoglobin A1c 5.4 % (4.5-5.6) 09/29/19 06:11 Urine Color Yellow 09/28/19 14:45 Urine Appearance Clear (Clear) 09/28/19 14:45 Urine pH 7.0 (4.5-7.5) 09/28/19 14:45 Ur Specific [place] 1.017 (1.000-1.030) 09/28/19 14:45 Urine Protein 1+ (Negative) H 09/28/19 14:45 Urine Glucose (UA) Negative (Negative) 09/28/19 14:45 Urine Ketones Negative (Negative) 09/28/19 14:45 Urine Nitrite Negative (Negative) 09/28/19 14:45 Ur Leukocyte Esterase Negative (Negative) 09/28/19 14:45 Urine WBC (Auto) 0 /hpf (0-5) 09/28/19 14:45 Urine RBC (Auto) 5-10 /hpf (0-4) H 09/28/19 14:45 U Hyaline Cast (Auto) 0 /lpf (0-5) 09/28/19 14:45 U Epithel Cells (Auto) 5-10 /lpf (0-5) H 09/28/19 14:45 Urine Bacteria (Auto) Negative (Negative) 09/28/19 14:45 Electrocardiogram Date: 09/28/19 Findings: + NSR @ (92) Sinus rhythm with short [place] Septal infarct , age undetermined Abnormal ECG When compared with ECG of 12-DEC-2016 15:25, No significant change was found Confirmed by Shawn Mann ([id number]) on 09/28/2019 4:01:51 PM Chest X-Ray Date: 09/28/19 XR chest 1V portable HISTORY: Cough. Rule out pneumonia COMPARISON: Chest 12/12/2016. No pneumothorax. No pleural effusions. The heart is normal in size. Rotated study. This likely accounts for the hyperlucent right lung. No new focal lung consolidations to suggest pneumonia. No evidence for pulmonary edema. FINDINGS: No pneumothorax. No pleural effusions. The heart is normal in size. Rotated study. This likely accounts for the hyperlucent right lung. No new focal lung consolidations to suggest pneumonia. No evidence for pulmonary edema. IMPRESSION: Rotated study. No acute process within the chest.
[2019-10-01 00:23] LABS: Rapid Plasma Reagin Reactive (Nonreactive)
[2019-10-01] MEDS: HALOPERIDOL LACTATE 5 MG/ML 1 ML VIAL IM PRN (01:57)
[2019-10-01] MEDS: HydrALAZINE HCL 20 MG/ML VIAL IV PRN (04:08)
[2019-10-01 07:25] LABS: Basophils # (auto) 0.01 K/uL (0-0.2); Basophils % (auto) 0.1 %; Hematocrit (blood only) 48.8 % (42-52); Hemoglobin 16.5 g/dL (14.0-18.0); Immature Granulocytes # (auto) 0.06 K/uL (0.00-0.02); Immature Granulocytes % (auto) 0.4 %; Lymphocytes # (auto) 0.93 K/uL (1.2-3.4); Lymphocytes % (auto) 6.7 %; Mean Corpuscular Hemoglobin 30.3 pg (25-34); Mean Corpuscular Hgb Conc 33.8 g/dL (32-36); Mean Corpuscular Volume 89.7 fL (80-100); Mean Platelet Volume 11.9 fL (7.4-10.4); Monocytes # (auto) 0.84 K/uL (0.11-0.59); Neutrophils # (auto) 12.12 K/uL (1.4-6.5); Neutrophils % (auto) 86.8 %; Platelet Count 194 K/uL (130-400); RDW Coefficient of Variation 14.1 % (11.5-14.5); RDW Standard Deviation 46.3 fL (36.4-46.3); Red Blood Count 5.44 M/uL (4.7-6.1); White Blood Count 13.96 K/uL (4.8-10.8)
[2019-10-01 08:00] LABS: Alanine Aminotransferase 52 U/L (12-78); Albumin Level 3.6 gm/dl (3.4-5.0); Aspartate Aminotransferase 67 U/L (15-37); BUN Creatinine Ratio 15.3 (10-20); Blood Urea Nitrogen 26 mg/dl (7-18); Calcium 9.7 mg/dl (8.5-10.1); Carbon Dioxide 25 mmol/L (21-32); Chloride 114 mmol/L (98-107); Est GFR (Non-African American) 40.5; Glucose 147 mg/dl (70-99); Potassium 3.4 mmol/L (3.5-5.1); Sodium 147 mmol/L (136-145)
[2019-10-01 08:03] LABS: Albumin Globulin Ratio 0.8 (0.9-2); Alkaline Phosphatase 115 U/L (45-117); Bilirubin,Total 1.5 mg/dl (0.2-1); Globulin 4.7 gm/dl (2.5-4.0); Total Protein 8.3 gm/dl (6.4-8.2)
[2019-10-01] MEDS: PARoxetine HCl 20 MG TAB PO SCH (08:26)
[2019-10-01] MEDS: LACTATED RINGER'S 1,000 ML IV SCH (08:26)
[2019-10-01] MEDS: PANTOprazole 40 MG TAB PO SCH (08:26)
[2019-10-01] MEDS: TAMSULOSIN HCL 0.4 MG CAP PO SCH (08:26)
[2019-10-01] MEDS: FINASTERIDE 5 MG TAB PO SCH (08:26)
[2019-10-01] MEDS: VITAMIN B COMPLEX TAB PO SCH (08:27)
[2019-10-01] MEDS ORDERED: MIDAZOLAM HCL 1 MG/ML 2ML VIAL ONE (08:57)
[2019-10-01] MEDS ORDERED: KETAMINE HCL INJ 50 MG/ML 10 ML VIAL ONE (08:57)
[2019-10-01] MEDS ORDERED: ATROPINE SULFATE 0.1 MG/ML 10ML SYR IV PRN (10:06)
[2019-10-01] MEDS ORDERED: ePHEDrine sulfate 50 MG/ML AMP IV PRN (10:06)
--- NOTE | 2019-10-01 10:08 | Neurology Progress Note ---
Date of Service October 01, 2019 Assessment & Plan (1) Encephalopathy: Persistent encephalopathy in a patient with baseline dementia, presenting with seizure-like activity, no further seizure-like episodes on Dilantin. Phenytoin level therapeutic. Elevated RPR titer noted. There is limited data pertaining to this patient's past medical history although there is no mention of syphilis or HIV, although he does have a history of hepatitis C. The significance of the positive RPR is not entirely clear in terms of this patient's current presentation. Neurosyphilis could be a potential consideration and could be the substrate for his underlying dementia. Continue with phenytoin IV every 12 hours as ordered. Follow-up with results of CSF analysis including CSF VDRL, FTA serology and HIV testing. Consider empiric antimicrobial therapy and consultation with infectious diseases. Case discussed with Dr. Vasquez and Dr. Tomlin this morning. Subjective Follow-up for encephalopathy The patient is a 68-year-old male prisoner with a history of dementia who presented to [facility] on September 28 with generalized shaking, tongue bite, and extreme agitation. There does not appear to be a documented history of seizure disorder in this patient. He was initially treated with an IV loading dose of Keppra although this medication was discontinued in favor of Dilantin as Dilantin was felt to be less likely to be an issue in the context of his history of posttraumatic stress disorder and agitation. The patient has remained significantly agitated, frequently crying out and flailing the limbs which according to snf guards has been his typical baseline in the context of his severe dementia. An EEG completed on September 29 was technically limited due to excessive patient movement and agitation, although no definitive epileptiform abnormalities were observed. A CT of the head completed at the time of presentation reveals generalized atrophy with associated ventricular dilatation. No hemorrhage or acute process. I reviewed the images as well as the radiologist's interpretation of this test. His white blood cell count has been elevated. He has been afebrile. He has a normal ammonia level. Urine tox screen is negative. A phenytoin level today is 15.7. He has an elevated RPR titer, 1:2, FTA antibodies pending. Case discussed with housestaff yesterday afternoon. Patient scheduled for lumbar puncture today. Review of Systems Review of Systems: Unobtainable due to reduced consciousness Physical Exam Physical Exam: The patient is obtunded. He arouses to tactile stimulation and has a tendency for agitation. He does not call out, speak, or follow commands. Pupils are both small, round, and minimally reactive to light. Eye movements can otherwise not be tested. He does appear to move all 4 limbs fairly symmetrically when he becomes agitated but otherwise does not do so to command or in a purposeful manner. Deep tendon reflexes are generally intact, 2+ at the patellar and Achilles tendons. Results & Data Vital Signs (Past 12 Hours) Vital Signs Temp Pulse Pulse Pulse Resp BP Pulse Ox 10/01/19 08:00 115 H 10/01/19 07:01 37.2 C 113 H 22 165/96 H 94 10/01/19 04:55 111 H 145/93 H 10/01/19 03:50 37.4 C 115 H 22 171/110 H 95 10/01/19 00:26 106 H 09/30/19 23:07 37.4 C 100 H 22 158/90 H 94 PG Care Time/CCT Total # of Minutes Spent Total Time Spent with Patient: Total time spent is greater than 50% in coordination of care (as documented) at patient's floor/unit and/or counseling patient:
--- NOTE | 2019-10-01 10:32 | Anesthesiology Progress Note ---
Date of Service October 01, 2019 Anesthesia Post Procedure Vital Signs Vital Signs: Temp Pulse Pulse Pulse Pulse Pulse Resp 10/01/19 10:20 36.6 C 95 H 22 10/01/19 10:10 108 H 28 H 10/01/19 10:02 36.8 C 112 H 22 10/01/19 08:00 115 H 10/01/19 07:01 37.2 C 113 H 22 10/01/19 04:55 111 H 10/01/19 03:50 37.4 C 115 H 22 10/01/19 00:26 106 H 09/30/19 23:07 37.4 C 100 H 22 09/30/19 20:54 104 H 09/30/19 19:23 36.8 C 104 H 20 09/30/19 15:19 36.8 C 95 H 22 09/30/19 11:30 37.3 C 110 H 24 BP Pulse Ox 10/01/19 10:20 200/183 H 98 10/01/19 10:10 165/117 H 97 10/01/19 10:02 185/175 H 97 10/01/19 08:00 10/01/19 07:01 165/96 H 94 10/01/19 04:55 145/93 H 10/01/19 03:50 171/110 H 95 10/01/19 00:26 09/30/19 23:07 158/90 H 94 09/30/19 20:54 133/80 09/30/19 19:23 197/104 H 94 09/30/19 15:19 184/91 H 97 09/30/19 11:30 165/103 H 93 Transfer of Care Handoff Completed per policy Notes Mental Status: see notes below (Pt unresponsive at baseline) Patient Amnestic to Procedure: Yes Nausea / Vomiting: adequately controlled Pain: adequately controlled Airway Patency, RR, SpO2: stable & adequate BP & HR: stable & adequate Hydration State: stable & adequate Anesthetic Complications: no major complications apparent and Pt Satisfied with anesthetic care
[2019-10-01 10:34] LABS: Appearance CSF Clear; CSF Count Tube # 3; CSF Xanthrochromic No xanthochromia; Color CSF Colorless
[2019-10-01 10:37] LABS: Red Blood Cell CSF (A) 0 /uL (0-); Red Blood Cell CSF (B) 0 /uL (0-); White Blood Cell CSF (A) 3 /uL (0-5); White Blood Cell CSF (B) 2 /uL (0-5)
--- NOTE | 2019-10-01 10:49 | Fluoroscopy Report ---
FLUOROSCOPICALLY GUIDED LUMBAR PUNCTURE CLINICAL HISTORY: encephalopathy FLUOROSCOPY TIME: 0.2 minutes. Single fluoroscopic spot images submitted PROCEDURE: The procedure, risks and benefits were discussed with the patient including the risk of s syed headache, bleeding and infection. The patient agreed to the procedure and informed written cons ent was obtained. The procedure was performed by Dr. Saxena following a timeout. The left L5-S1 in terlaminar space was targeted. Skin overlying the space was prepped and draped in the usual sterile f ashion and local anesthesia was achieved with 1% lidocaine. Under intermittent fluoroscopic guidance, a 20-gauge x 3 1/2 in. Sprotte needle was inserted into the thecal sac. A total of 11cc of clear, co lorless cerebral spinal fluid was obtained and spread amongst 4 vials. The patient tolerated the proc edure well. There were no immediate complications. The specimens were sent to the laboratory at the [facility] of the referring physician. IMPRESSION: Successful fluoroscopic guided lumbar puncture with removal of 11 cc of clear, colorless cerebral spinal fluid. No immediate complications. Electronically signed by: Aris Saxena M.D. 10/01/2019 10:47 AM
[2019-10-01] MEDS: ENOXAPARIN INJ 40 MG/0.4 ML SYR SQ SCH (10:58)
--- NOTE | 2019-10-01 11:07 | Palliative Care Consultation ---
Date of Consultation October 01, 2019 Assessment & Plan (1) Palliative care encounter: This patient is a 68 years old inmate from [facility] who presented to the [facility] ED with seizures. This patients has an additional PMH that includesend- stage Alzheimer dementia, hepatitis C, post-traumatic stress disorder, and hypertension. Once in the ED, he continued to seize. The patient was given 4 mg of Ativan by the ER physician without relief; however, his seizure finally cesased with Keppra 1G. Patient is unable to give any history due to ongoing status epilepticus. A CT scan was performed and showed mild ventricular dilatation, no acute intracranial finding, no acute cortical infarction. There is no evidence of midline shift. Decision was made to admit patient to PCU on telemetry for status epilepticus and further management and treatment of Alzheimer's dementia, renal failure, etc. Palliative Care was consulted to discuss goals of care. -I met with the patient who was not able to participate in any conversation. He was agitated and flailing around in his bed when care was being provided by nursing. -An LP was performed today with elevated Lactate, elevated glucose, elevated protein without evidence for bacterial infection. -HIV test was negative and Syphillis was positive. -I was able to speak with the patients brother (POA) Gerard [phone] at length regarding his current medical status. -He expressed that his brother is a purple heart and just was 'in the wrong place at the wrong time and should be able to with dignity'. -Plan to transition to full comfort measures here at the hospital and transition back to [facility] ([place], [place]) with Hospice and comfort measures only. -Confirmed with the patients brother that he would like to stop all medications, blood draws, vital signs. -Patient is not taking po meds at this time due to reduced cognitive state. -I ordered Roxanol 10 mg/mL Q2 PRN for pain and air hunger. Also ordered Ativan 0.5 mg Q4 PRN, can increase frequency if needed. Patient also has Haldol IM 2mg Q2 PRN for agitation. -PPS: 20% -Case management had left for the day and the patient was transferred to , so I did not get to update them with the conversation I had with the patients brother to begin process for discharge communication and planning. Hospitalist made aware. -Palliative Care will follow. (2) Dementia: (3) AMS (altered mental status): Altered mental status type: unspecified Qualified Code(s): R41.82 - Altered mental status, unspecified (4) Seizure: History of Present Illness Reason for Consultation: Goals of care Requesting Physician: Dr. Vasquez Attending Physician: Tee Vasquez MD History of Present Illness This patient is a 68 years old inmate from [facility] who presented to the [facility] ED with seizures. This patients has an additional PMH that includes end-stage Alzheimer dementia, hepatitis C, post-traumatic stress disorder, and hypertension. Once in the ED, he continued to seize. The patient was given 4 mg of Ativan by the ER physician without relief; however, his seizure finally cesased with Keppra 1G. Patient is unable to give any history due to ongoing status epilepticus. A CT scan was performed and showed mild ventricular dilatation, no acute intracranial finding, no acute cortical infarction. There is no evidence of midline shift. Decision was made to admit patient to PCU on telemetry for status epilepticus and further management and treatment of Alzheimer's dementia, renal failure, etc. Palliative Care was consulted to discuss goals of care. Please see A/P for further details. Thank you kindly for involving the Palliative care team with this unfortunate patient. Allergies Allergy/AdvReac Type Severity Reaction Status Date / Time No Known Allergies Allergy Unverified 09/28/19 09:34 Home Medications Home Medications Medication Instructions Recorded Confirmed Type amlodipine 10 mg PO HS 09/28/19 09/28/19 History finasteride 5 mg PO DAILY 09/28/19 09/28/19 History omeprazole 20 mg PO DAILY 09/28/19 09/28/19 History paroxetine HCl 20 mg PO DAILY 09/28/19 09/28/19 History tamsulosin 0.4 mg PO DAILY 09/28/19 09/28/19 History vitamin B complex-folic acid [B 1 tab PO DAILY 09/28/19 09/28/19 History Complex 1 (with folic acid)] Patient History Medical History Agitation (Acute) SHAHANA (acute kidney injury) Alzheimer disease AMS (altered mental status) (Acute) Dementia (Acute) GERD (gastroesophageal reflux disease) (Chronic) Hepatitis C (Chronic) Hypernatremia Hypertension (Chronic) Hypokalemia Palliative care encounter PTSD (post-traumatic stress disorder) (Chronic) Respiratory alkalosis Seizure (Acute) Family History Other Family history non-contributory Social History Preferred Language: Hungarian Communication Ability: Impaired Polymer Tester Required: No Beliefs That Will Affect Care: None Current Living Situation: Other Current Living Situation Comment: [facility] current occupational status: other current occupation: Prisoner Smoking Status: Former smoker Hx Alcohol Use: No Review of Systems Review of Systems: Unobtainable due to cognitive status Physical Exam Constitutional: + ill appearing, + thin, + cachectic, + disheveled, + in distress, + combative, + lethargic and + malnourished Respiratory: + labored breathing Auscultation: + diminished lung sounds Cardiovascular: RRR, no murmur, no edema Gastrointestinal (Abdomen): normal bowel sounds, soft, nontender, no hepatosplenomegaly Skin: no rashes, warm and dry Psychiatric: Insight: + severely impaired insight Judgement: + severely impaired judgement Results & Data Vital Signs (Past 12 Hours) Vital Signs Temp Pulse Pulse Pulse Pulse Resp BP 10/01/19 10:30 101 H 21 189/114 H 10/01/19 10:20 36.6 C 95 H 22 200/183 H 10/01/19 10:10 108 H 28 H 165/117 H 10/01/19 10:02 36.8 C 112 H 22 185/175 H 10/01/19 08:00 115 H 10/01/19 07:01 37.2 C 113 H 22 165/96 H 10/01/19 04:55 111 H 145/93 H 10/01/19 03:50 37.4 C 115 H 22 171/110 H 10/01/19 00:26 106 H 09/30/19 23:07 37.4 C 100 H 22 158/90 H Pulse Ox 10/01/19 10:30 98 10/01/19 10:20 98 10/01/19 10:10 97 10/01/19 10:02 97 10/01/19 08:00 10/01/19 07:01 94 10/01/19 04:55 10/01/19 03:50 95 10/01/19 00:26 09/30/19 23:07 94 PG Care Time/CCT Total # of Minutes Spent Total Time Spent with Patient: Total time spent is greater than 50% in coordination of care (as documented) at patient's floor/unit and/or counseling patient: 100 Time Spent Midlevel total time spent 100 minutes with > 50% of that time spent assessing the patient, discussing goals of care and symptom management with the patients bro ther over the phone.
[2019-10-01 11:38] LABS: Cryptococcus neoformans/ga PCR Not Detected (NotDetected); Cytomegalovirus PCR Not Detected (NotDetected); Enterovirus PCR Not Detected (NotDetected); Escherichia coli K1 PCR Not Detected (NotDetected); Haemophilius influenzae PCR Not Detected (NotDetected); Herpes Simplex Virus 1 PCR Not Detected (NotDetected); Herpes Simplex Virus 2 PCR Not Detected (NotDetected); Human Herpes Virus 6 PCR Not Detected (NotDetected); Human Parechovirus PCR Not Detected (NotDetected); Listeria monocytogenes PCR Not Detected (NotDetected); Neisseria meningitidis PCR Not Detected (NotDetected); Streptococcus agalactiae PCR Not Detected (NotDetected); Streptococcus pneumoniae PCR Not Detected (NotDetected); Varicella Zoster Virus PCR Not Detected (NotDetected)
[2019-10-01] MEDS ORDERED: SODIUM CHLORIDE 0.9% 1000ML 500 ML IV ONE (14:00)
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
--- NOTE | 2019-10-01 14:29 | Infectious Disease Consult ---
Date of Consultation October 01, 2019 Assessment & Plan (1) Encephalopathy: unclear etiology. If current and chronic mental status change due to syphilis would expect RPR to be higher and CSF to have greater wbc, protein. However, no contraindication to course of PCN for potential long standing syphilis, unclear if he was ever tested and/or treated previously. will start IV PCN, can check VDRL but may be negative. FTA is pending. HIV negative. will follow. (2) AMS (altered mental status): (3) Seizure: History of Present Illness Attending Physician: Tee Vasquez MD pt [facility]. unable to provide any history. all history obtained from chart and guards in room. He had ct head negative, CTA negative. per history has undlying dementia and per guards he has been in [facility] for years and is at baseline. On my exam he is sleeping, unarousable but agitated and having tremor. LP was done earlier today, 3 wbc, elevated glucose, elevated protein at 53. CSF culture pending, gram stain negative, CSF panel negative. RPR + at 1:2. VDRL from CSF cancelled. no known history of std but unable to obtain from patient. HiV test negative. afebrile since admission. wbc 13.9, was 17 at peak. creat 1.6, UA negative. Blood cultures negative. Allergies Allergy/AdvReac Type Severity Reaction Status Date / Time No Known Allergies Allergy Unverified 09/28/19 09:34 Home Medications Home Medications Medication Instructions Recorded Confirmed Type amlodipine 10 mg PO HS 09/28/19 09/28/19 History finasteride 5 mg PO DAILY 09/28/19 09/28/19 History omeprazole 20 mg PO DAILY 09/28/19 09/28/19 History paroxetine HCl 20 mg PO DAILY 09/28/19 09/28/19 History tamsulosin 0.4 mg PO DAILY 09/28/19 09/28/19 History vitamin B complex-folic acid [B 1 tab PO DAILY 09/28/19 09/28/19 History Complex 1 (with folic acid)] Patient History Medical History Agitation (Acute) SHAHANA (acute kidney injury) Alzheimer disease AMS (altered mental status) (Acute) Dementia (Acute) GERD (gastroesophageal reflux disease) (Chronic) Hepatitis C (Chronic) Hypernatremia Hypertension (Chronic) Hypokalemia Palliative care encounter PTSD (post-traumatic stress disorder) (Chronic) Respiratory alkalosis Seizure (Acute) Family History Other Family history non-contributory Social History Preferred Language: [place] Citizen Communication Ability: Impaired Commercial Technician Required: No Beliefs That Will Affect Care: None Current Living Situation: Other Current Living Situation Comment: [facility] current occupational status: other current occupation: Prisoner Smoking Status: Former smoker Hx Alcohol Use: No Review of Systems Review of Systems: Unobtainable due to cognitive status and Unobtainable due to reduced consciousness Physical Exam Constitutional: + ill appearing, + thin and + altered mental status Eyes: unable to examine ENMT: external ear and nose normal, oropharynx normal Neck: normal visual inspection Respiratory: normal respiratory effort, lungs clear to auscultation Cardiovascular: RRR, no murmur, no edema Gastrointestinal (Abdomen): Inspection/Auscultation: abdomen normal to inspection; abdomen not distended Percussion/Palpation: abdomen not rigid Musculoskeletal: Head/Neck/Chest: + head abnormal to inspection, normocephalic, head atraumatic and neck supple Skin: no rashes, warm and dry Psychiatric: Motor Behavior: + tremor lethargic, non responsive, non verbal Results & Data Vital Signs (Past 12 Hours) Vital Signs Temp Pulse Pulse Pulse Resp BP Pulse Ox 10/01/19 10:30 101 H 21 189/114 H 98 10/01/19 10:20 36.6 C 95 H 22 200/183 H 98 10/01/19 10:10 108 H 28 H 165/117 H 97 10/01/19 10:02 36.8 C 112 H 22 185/175 H 97 10/01/19 08:00 115 H 10/01/19 07:01 37.2 C 113 H 22 165/96 H 94 10/01/19 04:55 111 H 145/93 H 10/01/19 03:50 37.4 C 115 H 22 171/110 H 95 Laboratory Results Microbiology 09/30/19 12:01 Blood Aerobic Blood Culture - Preliminary No growth in Aerobic bottle after 24 hours. 09/30/19 12:01 Blood Anaerobic Blood Culture - Preliminary No growth in Anaerobic bottle after 24 hours. 09/30/19 12:03 Blood Aerobic Blood Culture - Preliminary No growth in Aerobic bottle after 24 hours. 09/30/19 12:03 Blood Anaerobic Blood Culture - Preliminary No growth in Anaerobic bottle after 24 hours. 10/01/19 09:40 Cerebral Spinal Fluid Cryptococcal Antigen Test - Final 10/01/19 09:40 Cerebral Spinal Fluid Gram Stain - Final PG Care Time/CCT Total # of Minutes Spent Total Time Spent with Patient: Total time spent is greater than 50% in coordination of care (as documented) at patient's floor/unit and/or counseling patient: (1) AMS (altered mental status) Altered mental status type: unspecified Qualified Code(s): R41.82 - Altered mental status, unspecified
[2019-10-01] MEDS ORDERED: VANCOMYCIN CONSULT ACTIVE PRN (15:22)
[2019-10-01] MEDS ORDERED: PENICILLIN G POTASSIUM 3 MU in DEXTROSE 5% 100 ML IV SCH (15:30)
[2019-10-01] MEDS ORDERED: VANCOMYCIN HCL 1,500 MG in SODIUM CHLORIDE 0.9% 250 ML IV SCH (16:00)
[2019-10-01] MEDS ORDERED: SODIUM CHLORIDE 0.9% 1000ML 1,000 ML IV SCH (16:00)
[2019-10-01] MEDS ORDERED: VANCOMYCIN HCL IV SCH (16:30)
[2019-10-01] MEDS ORDERED: VANCOMYCIN HCL 1,500 MG in SODIUM CHLORIDE 0.9% 500 ML IV SCH (16:30)
[2019-10-01] MEDS ORDERED: SODIUM CHLORIDE 0.9% IV SCH (16:30)
[2019-10-01] MEDS: MoRPHine SULFATE 10 MG/0.5 ML UDP PO PRN (19:26)
[2019-10-01] MEDS: LORazepam 0.5 MG/1 ML VIAL IV PRN (20:11)
[2019-10-01] MEDS: AMLODIPINE BESYLATE 5 MG TAB PO SCH (21:09)
[2019-10-02] MEDS: HALOPERIDOL LACTATE 5 MG/ML 1 ML VIAL IM PRN (01:55)
--- NOTE | 2019-10-02 07:47 | Hospitalist Progress Note ---
Date of Service October 02, 2019 Assessment & Plan (1) Dementia: Mr. Crowley did require a one time dose of Haldol overnight. He was made comfort care measures yesterday with decision from Family. His POA did decide yesterday evening after discussion with Palliative Care Team to withdraw all care and for comfort care and hospice care only. I did have a hard time reaching retirement staff regarding transfer with [facility] ringing for minutes without answer. This unfortunately was similar to prior attempts. But I was able to reach the nursing supervisor sign shop via the ballast cleaning operator and she provided me with Dr. Olivares's personal cell phone. I called the cell phone and was able to talk to Dr. lOivares who accepted the patient for transfer. Unfortunately, a call was placed back to case management and they were unable to accept him until tomorrow. (2) AMS (altered mental status): - LP performed today with elevated Lactate, elevated glucose, elevated protein without evidence for bacterial infection; further labs for other infectious viral etiologies pending including other bacterial spirochetal causes such as syphilis and Lyme. - Positive RPR today with pending FTA-ABS; was treated with Penicillin per ID consult - For agitation continue Haldol 5mg IM PRN q2h; avoiding Ativan as concern for undesired severity in sedation - HIV was negative (3) Cellulitis of upper arm and forearm: Withdrew care as above (4) SHAHANA (acute kidney injury): Withdrew care as above (5) Seizure-like activity: Unwitnessed seizure, reported tongue laceration and incontinence with already baseline incontinence. Is unable to convey any history or follow commands, post-ictal vs. baseline advanced Alzheimer Dementia Unable to safely take Anti-epileptics PO CXR one view 09/29 was negative with prior negative procal Discussed with case management attempts to get Will for code status; called Shelter to try to speak with physician to get code status but no answer on multiple attempts - Patients with dementia are at increased risk of seizures due to bad brain substrate compared to the general population. - There were no significant electrolyte abnormalities to provoke event, or hemorrhage/CVA seen on CT Head. - Was given 1g Keppra load and Ativan 4mg in ED on 09/28/19. Keppra was not continued given baseline agitation and hx of PTSD. - Per neuro recs - Dilantin was given considering cost effective and IV Access. - Recommend MRI but not performed as agitation wouldn't produce adequate image. - Patient was loaded with Dilantin 1300mg for estimated weight of 65kg. - 10/01, Withdrew care as above POA was contacted for code status to DNR/DNI status (6) Hepatitis C: reported history; lab HCV PCR pending (7) GERD (gastroesophageal reflux disease): Withdrew care as above (8) Hypertension: withdrew care as above (9) PTSD (post-traumatic stress disorder): withdrew care as above (10) Hypokalemia: withdrew care as above (11) Hematuria, gross: Due to reported trauma from pulling of mckenna cath (12) Respiratory alkalosis: Resulted from ABG; concerned process could be from PE also with tachycardia so CTA PE was ordered, but was negative Supervising Physician Co-Signing Physician Notes Attending attestation Pt seen and examined in concert with Dr. Tomlin. In agreement with the documented findings as noted in the resident documentation with any exceptions or additions as noted here. Unfocused and agitated at bedside without meaningful interaction or movement. Following goals of care discussion with POA, transitioned to full comfort with intention for hospice at retirement. On examination, PERRL, S1/S2 nl RRR no MCG. CTAB. Abd NT/ND BS+ve. Open mouth with dried blood and poor dentition without apparent new trauma. Stable/improved rash of the RUE Delirium in the setting of new dx of seizure disorder with status epilepticus (resolved) and h/o Alzheimer's dementia - neurology, ID and palliative consultation - pending VDRL - transitioned to comfort care with orders placed for SL/PO therapy. Monitor for agitation and use IV/SQ if needed Else see resident documentation as noted. Subjective Caveat: History Limited by Dementia/AMS Mr. Crowley did require a one time dose of Haldol overnight. He was made comfort care measures yesterday with decision from Family. His POA did decide yesterday evening after discussion with Palliative Care Team to withdraw all care and for comfort care and hospice care only. I did have a hard time reaching retirement staff regarding [facility] with [facility] ringing for minutes without answer. This unfortunately was similar to prior attempts. But I was able to reach the nursing supervisor sign shop via the ballast cleaning operator and she provided me with Dr. Olivares's personal cell phone. I called the cell phone and was able to talk to Dr. Olivares who accepted the patient for transfer. Unfortunately, a call was placed back to case management and they were unable to accept him until tomorrow. Physical Exam Constitutional: + ill appearing and + altered mental status Neck: normal visual inspection and trachea midline Respiratory: normal respiratory effort, lungs clear to auscultation Cardiovascular: Rate/Rhythm: regular rate and regular rhythm Extremities: no edema Gastrointestinal (Abdomen): Inspection/Auscultation: normal bowel sounds Percussion/Palpation: abdomen soft; abdomen nontender Musculoskeletal: Head/Neck/Chest: normocephalic and head atraumatic Skin: no rashes, warm and dry Neurologic: agitated does not follow commands Resident Activity Tracking Resident Involvement: Resident Care Provided Care Provided: Adult Hospital Medicine (1) AMS (altered mental status) Altered mental status type: unspecified Qualified Code(s): R41.82 - Altered mental status, unspecified
[2019-10-02] MEDS: LORazepam 0.5 MG/1 ML VIAL IV PRN ×3 (08:16→21:53)
--- NOTE | 2019-10-02 09:00 | Infectious Disease Progress Nt ---
Date of Service October 02, 2019 Assessment & Plan (1) Encephalopathy: pt now comfort measures only per chart, pcn stopped. will be available for any questions if needed. (2) AMS (altered mental status): (3) Seizure: Subjective pt was started on emperic pcn for low level + RPR 1:2 and elevated protein CSF. FTA pending, per chart he was made comfort measures since ID consultation yesterday, pcn was stopped. afebrile. no am labs. Results & Data Laboratory Results Microbiology 09/30/19 12:01 Blood Aerobic Blood Culture - Preliminary No growth in Aerobic bottle after 24 hours. 09/30/19 12:01 Blood Anaerobic Blood Culture - Preliminary No growth in Anaerobic bottle after 24 hours. 09/30/19 12:03 Blood Aerobic Blood Culture - Preliminary No growth in Aerobic bottle after 24 hours. 09/30/19 12:03 Blood Anaerobic Blood Culture - Preliminary No growth in Anaerobic bottle after 24 hours. 10/01/19 09:40 Cerebral Spinal Fluid Cryptococcal Antigen Test - Final 10/01/19 09:40 Cerebral Spinal Fluid Gram Stain - Final PG Care Time/CCT Total # of Minutes Spent Total Time Spent with Patient: Total time spent is greater than 50% in coordination of care (as documented) at patient's floor/unit and/or counseling patient: (1) AMS (altered mental status) Altered mental status type: unspecified Qualified Code(s): R41.82 - Altered mental status, unspecified
--- NOTE | 2019-10-02 14:45 | Anesthesiology Progress Note ---
Date of Service October 02, 2019 Anesthesia Post Procedure Vital Signs Vital Signs: Temp Pulse Resp BP Pulse Ox 10/01/19 15:54 37.0 C 107 H 22 172/99 H 97 Notes Nausea / Vomiting: adequately controlled Pain: adequately controlled Airway Patency, RR, SpO2: stable & adequate BP & HR: stable & adequate Hydration State: stable & adequate Anesthetic Complications: no major complications apparent and Pt Satisfied with anesthetic care
[2019-10-02] MEDS: AMLODIPINE BESYLATE 5 MG TAB PO SCH (21:32)
[2019-10-02] MEDS: MoRPHine SULFATE 10 MG/0.5 ML UDP PO PRN (21:52)
[2019-10-03] MEDS: MoRPHine SULFATE 10 MG/0.5 ML UDP PO PRN ×4 (00:50→12:44)
[2019-10-03] MEDS: LORazepam 0.5 MG/1 ML VIAL IV PRN ×4 (00:55→12:22)
--- NOTE | 2019-10-03 07:55 | Discharge Summary ---
Date of Service October 03, 2019 Admission HPI Per Admitting Provider Patient is a 68 years old inmate with past medical history of severe Alzheimer dementia, hepatitis C, posttraumatic stress disorder, hypertension who was brought from the correction to the emergency room for episode of the seizure and patient continued to seize while he was in the emergency room. Patient was given 4 mg of Ativan by the ER physician but that did not help to stop his seizures. 1 g of Keppra is given. Patient is unable to give any history due to ongoing status epilepticus. Labs are reviewed: WBC is 12.28, hemoglobin 15.1, hematocrit 43.8, platelets 200, sodium 138, potassium 3.6, chloride 107, anion gap 6, BUN 29, creatinine 1.52, GFR 46.1, magnesium 2, bilirubin 1.1, AST 50, ALT 47, alkaline phosphatase 130, troponin [address] scan: Shows mild ventricular dilatation, no acute intracranial finding, no acute cortical infarction. There is no evidence of midline shift. Decision was made to admit patient to PCU on telemetry for status epilepticus and further management and treatment of Alzheimer's dementia, renal failure or other comorbidities this patient may have. Principal Diagnosis AMS, Seizure Like Activity, End of Life Care/Hospice Discharge Exam Constitutional + ill appearing and + altered mental status Neck normal visual inspection and trachea midline Respiratory normal respiratory effort, lungs clear to auscultation Cardiovascular Rate/Rhythm: regular rate and regular rhythm Extremities: no edema Gastrointestinal (Abdomen) Inspection/Auscultation: normal bowel sounds Percussion/Palpation: abdomen soft; abdomen nontender Musculoskeletal Head/Neck/Chest: normocephalic and head atraumatic Skin no rashes, warm and dry Neurologic does not follow commands, unresponsive to verbal stimuli, withdraws from painful stimuli Discharge Data Allergies Allergy/AdvReac Type Severity Reaction Status Date / Time No Known Allergies Allergy Unverified 09/28/19 09:34 Consultations 09/28/19 10:36 ED Decision to Admit Stat 09/28/19 13:00 Consult Neurology Routine 09/30/19 13:13 Consult Anesthesiology Routine 09/30/19 15:31 Consult Palliative Care Routine 10/01/19 14:04 Consult Infectious Diseases Routine Procedures Performed Operation Date: 09/30/19 13:30 <No data on this case meets the specified criteria> Operation Date: 10/01/19 09:30 Actual Procedures p Lumbar Puncture - Jong Lewis MD Ordered Studies 09/28/19 08:54 CT head/brain wo con Stat 09/30/19 11:28 CT angio chest PE protocol Urgent 10/01/19 07:38 FL lumbar puncture diagnostic Stat Hospital Course (1) Dementia: Keo Wyatt is a 68 y/o male who was transferred to [facility] for seizures. He has PMH that includes end-stage Alzheimer dementia, hepatitis C, post- traumatic stress disorder, and hypertension. Once in the ED, he continued to seize. The patient was given a dose of 4 mg of Ativan without relief; however, his seizure finally ceased with Keppra 1G. Patient was unable to give any history due to ongoing status epilepticus. A CT scan was performed and showed mild ventricular dilatation, no acute intracranial finding, no acute cortical infarction, no evidence of midline shift. Decision was made to admit patient to PCU on telemetry for status epilepticus and further management and treatment of Alzheimer's dementia, renal failure, etc. Palliative Care was consulted to discuss goals of care. -Neurology was consulted and assisted in workup: Patients with dementia are at increased risk of seizures due to bad brain substrate compared to the general population. -An LP was performed today with elevated Lactate, elevated glucose, elevated protein without evidence for bacterial infection. -HIV test was negative and RPR Syphillis was positive. A confirmatory FTA-ABS was negative. He was treated with appropriate dosing of Penicillin per Infectious disease physician. -Palliative Care was able to speak with the patients brother (POA) Gerard [phone] at length regarding his current medical status. -He expressed that his brother is a purple heart and just was 'in the wrong place at the wrong time and should be able to with dignity'. -Plan to transition to full comfort measures here at the hospital and transition back to [facility] with Hospice and comfort measures only. -Confirmed with the patients brother that he would like to stop all medications, blood draws, vital signs. -Patient is not taking po meds at this time due to reduced cognitive state. -Per Palliative Consult, we ordered Roxanol 10 mg/mL Q2 PRN for pain and air hunger. Also ordered Ativan 0.5 mg Q4 PRN, can increase frequency if needed. Aylin kera also has Haldol IM 2mg Q2 PRN for agitation. (2) AMS (altered mental status): - LP performed with elevated Lactate, elevated glucose, elevated protein without evidence for bacterial infection; further labs for other infectious viral etiologies pending including other bacterial spirochetal causes such as syphilis and Lyme. - Positive RPR today with negative FTA-ABS; was treated with Penicillin per ID consult - For agitation continue Haldol 5mg IM PRN q2h; avoiding Ativan as concern for undesired severity in sedation - HIV was negative (3) Cellulitis of upper arm and forearm: Withdrew care as above (4) SHAHANA (acute kidney injury): Withdrew care as above (5) Seizure-like activity: Unwitnessed seizure, reported tongue laceration and incontinence with already baseline incontinence. Is unable to convey any history or follow commands, post-ictal vs. baseline advanced Alzheimer Dementia Unable to safely take Anti-epileptics PO CXR one view 09/29 was negative with prior negative procal Discussed with case management attempts to get Will for code status; called [facility] to try to speak with physician to get code status but no answer on multiple attempts - Patients with dementia are at increased risk of seizures due to bad brain substrate compared to the general population. - There were no significant electrolyte abnormalities to provoke event, or hemorrhage/CVA seen on CT Head. - Was given 1g Keppra load and Ativan 4mg in ED on 09/28/19. Keppra was not continued given baseline agitation and hx of PTSD. - Per neuro recs - Dilantin was given considering cost effective and IV Access. - Recommend MRI but not performed as agitation wouldn't produce adequate image. - Patient was loaded with Dilantin 1300mg for estimated weight of 65kg. - 10/01, Withdrew care as above POA was contacted for code status to DNR/DNI status (6) Hepatitis C: reported history; lab HCV PCR pending (7) GERD (gastroesophageal reflux disease): Withdrew care as above (8) Hypertension: withdrew care as above (9) PTSD (post-traumatic stress disorder): withdrew care as above (10) Hypokalemia: withdrew care as above (11) Hematuria, gross: Due to reported trauma from pulling of mckenna cath (12) Respiratory alkalosis: Resulted from ABG; concerned process could be from PE also with tachycardia so CTA PE was ordered, but was negative Total Time Total Time Spent Total Time Spent (In Minutes): 20 Total Time Includes: Examination of the Patient, Discharge Planning, Medication Reconciliation and Communication With Other Providers Discharge Plan Discharge Items [facility]position[facility] Reason For Visit: STATUS EPILETICUS, AMS Discharge Diagnosis: Seizure like activity Activity: As commented below Non-emergency contact: Primary Care Provider Call non-emergency contact if: you have any medication questions and your symptoms worsen Follow-up/Referrals: Chuck WRIGHT [Primary Care Provider] - Diet: Heart Healthy Addtl Attending Provider Instructions: Keo Wyatt is a 68 y/o male who was transferred to [facility] for seizures. He has PMH that includes end-stage Alzheimer dementia, hepatitis C, post- traumatic stress disorder, and hypertension. Once in the ED, he continued to seize. The patient was given a dose of 4 mg of Ativan without relief; however, his seizure finally ceased with Keppra 1G. Patient was unable to give any history due to ongoing status epilepticus. A CT scan was performed and showed mild ventricular dilatation, no acute intracranial finding, no acute cortical infarction, no evidence of midline shift. Decision was made to admit patient to PCU on telemetry for status epilepticus and further management and treatment of Alzheimer's dementia, renal failure, etc. Palliative Care was consulted to discuss goals of care. -Neurology was consulted and assisted in workup: Patients with dementia are at increased risk of seizures due to bad brain substrate compared to the general population. -An LP was performed today with elevated Lactate, elevated glucose, elevated protein without evidence for bacterial infection. -HIV test was negative and RPR Syphillis was positive. A confirmatory FTA-ABS was negative. He was treated with appropriate dosing of Penicillin per Infectious disease physician. -Palliative Care was able to speak with the patients brother (POA) Gerard [phone] at length regarding his current medical status. -He expressed that his brother is a purple heart and just was 'in the wrong place at the wrong time and should be able to with dignity'. -Plan to transition to full comfort measures here at the hospital and transition back to [facility] with Hospice and comfort measures only. -Confirmed with the patients brother that he would like to stop all medications, blood draws, vital signs. -Patient is not taking po meds at this time due to reduced cognitive state. -Per Palliative Consult, we ordered Roxanol 10 mg/mL Q2 PRN for pain and air hunger. Also ordered Ativan 0.5 mg Q4 PRN, can increase frequency if needed. Patient also has Haldol IM 2mg Q2 PRN for agitation. Pending Studies at Discharge: Yes Studies:: FTA-ABS confirmation pending, but was treated with Penicillin Stand-Alone Forms: My [facility] Skilled Items Patient informed of condition?: Yes Discharge Level of Care: Other Communicable Disease: No Discharge Prognosis: Deteriorating Lines: None Urinary Catheter: Yes Medications and DC Order Prescriptions: New morphine concentrate 100 mg/5 mL (20 mg/mL) Solution 200 mg PO Q2H PRN (Reason: dyspnea) Qty: 0 RF: 0 haloperidol lactate 5 mg/mL Solution 5 mg IM Q2H PRN (Reason: agitation) Qty: 1 RF: 0 Discontinued tamsulosin 0.4 mg Capsule 0.4 mg PO DAILY RF: 0 amlodipine 10 mg Tablet 10 mg PO HS RF: 0 paroxetine HCl 20 mg Tablet 20 mg PO DAILY RF: 0 omeprazole 20 mg Capsule,Delayed Release(Dr/Ec) 20 mg PO DAILY RF: 0 finasteride 5 mg Tablet 5 mg PO DAILY RF: 0 vitamin B complex-folic acid [B Complex 1 (with folic acid)] 0.4 mg Tablet 1 tab PO DAILY RF: 0 Discharge Orders: Discharge Order (Routine); Ordered 10/03/19 Ordered By: Brice Tomlin Admission Data Admit Date/Time: 09/28/19 11:23 Attending Provider: Tee Vasquez Admit Provider: Jose Luis Ward Primary Care Provider: Chuck WRIGHT Other Providers: Jose Luis Ward ; Becky Sabillon ; Ish Edwards ; Sima Zhang ; Marlene Enriquez Other Interventions: Discharge Summary Assessment (RN) Last Done: 10/03/19 10:49 DC Date/Time DO NOT enter until pt leaves facility: 10/03/19 13:05 Supervising Physician Co-Signing Physician Notes I saw the patient the resident physician and confirmed [place] portion of the hi story and physical examination. I agree with the impression and plan as noted above. Upon examination, the patient is obtunded; his respirations are regular though he is noted to be tachycardic. Plan is to return to the [facility] with hospice care provided in the [facility]. Resident Activity Tracking Resident Involvement: Resident Care Provided Care Provided: Adult Hospital Medicine
[2019-10-08 18:11] LABS: EBV DNA Quant PCR <200 copies/mL (<200); EBV DNA Quant Source CSF; Lyme IgM Band Pattern CSF DNR; Lyme IgM CSF NO BANDS DETECTED; VDRL Qualitative CSF Nonreactive (Nonreactive)
[2019-10-09 09:19] LABS: Lyme IgG Band Pattern CSF DNR; Lyme IgG CSF NO BANDS DETECTED
== END 2019-10-03 13:05 | DRG 101 ==
LOC: ED 08:47 → SUATTDRO 11:23 → 2S 11:23 → 2N 10-01 15:21